=== PATIENT | female | born 1985 | race Caucasian/White ===

== ENCOUNTER 2017-08-20 11:38 | Emergency (ER) | payer SELFPAY ==
[2017-08-20 11:53] VITALS: BP 126/74; PULSE 88; RESP 13; TEMP 36.1; O2SAT 100
[2017-08-20 12:07] VITALS: BP 126/74; PULSE 88; RESP 13; TEMP 36.1; O2SAT 100
--- NOTE | 2017-08-20 12:36 | ED.BACK ---
HPI - Back Pain/Injury <URI Sears - Last Filed: 08/20/17 20:13> General Chief Complaint: Back Pain/Injury Stated Complaint: LOWER BACK PAIN Time Seen by Provider: 08/20/17 12:36 Source: patient Mode of arrival: ambulatory Limitations: no limitations History of Present Illness HPI Narrative: Patient presents after back pain on Saturday. She was bending over while camping to pick something up and had sudden onset of back pain. She denies any numbness, tingling, incontinence or saddle anesthesia. She denies any weakness. She does not complain any radiation of the pain states it is mostly isolated to her lower back on both sides. She denies any dysuria, urgency, frequency. She has taken ibuprofen and Tylenol for the pain. She has been on muscle relaxers performed states they are helpful. Related Data Previous Rx's Medication Instructions Recorded nicotine [Nicoderm CQ] 14 mg TD QDAY #30 patch 01/17/16 sumatriptan succinate [Imitrex] 100 mg PO PRN PRN #9 tab 07/15/16 triamcinolone acetonide 1 chan TOPICAL BID #60 gm 08/17/16 naproxen 500 mg PO TIDCC #30 tab 11/01/16 citalopram [Celexa] 20 mg PO QDAY #30 tab 11/05/16 hydroxyzine pamoate 25 mg PO Q6HP PRN #20 cap 11/08/16 hydrocodone-acetaminophen 1 - 2 tab PO Q4HP PRN #30 tab 11/12/16 sulfamethoxazole-trimethoprim 20 ml PO BID #400 ml 11/12/16 [Sulfatrim] oxycodone-acetaminophen [Percocet] 1 tab PO Q6HP PRN #40 tab 11/16/16 tramadol 50 - 100 mg PO TID #45 tab 05/02/17 oseltamivir 75 mg PO QDAY #10 cap 05/13/17 omeprazole 20 mg PO BID #60 cap 06/26/17 cyclobenzaprine 5 mg PO TID PRN #14 tab NS 08/20/17 Allergies Allergy/AdvReac Type Severity Reaction Status Date / Time No Known Drug Allergies Allergy Verified 08/20/17 12:06 Review of Systems <URI Sears - Last Filed: 08/20/17 20:13> Review of Systems GENERAL: Denies chills, fatigue, malaise, fever, sweats. HEENT: Denies sinus pain, ear pain, sore throat, difficulty swallowing, dizziness. RESPIRATORY: Denies dyspnea, cough, wheezing, hemoptysis, sputum. CARDIOVASCULAR: Denies chest pain, palpitations, orthopnea, edema, GASTROINTESTINAL: Denies nausea, vomiting, abdominal pain, diarrhea, constipation, melena. : See HPI MUSCULOSKELETAL: See HPI SKIN: Denies rash, skin lesions, or other NEUROLOGIC: Denies weakness, headache, numbness, change in speech, confusion, seizures, incoordination. PSYCHIATRIC: No concerning psychosocial issues. 12 point review of systems is negative except for those stated above Exam <Celinamarkel Ordoñezmer, SHIP FASTENER-BC - Last Filed: 08/20/17 20:13> Narrative Exam Narrative: GENERAL: This is a well-nourished, well-developed patient, in no distress lying in position. HEAD: Atraumatic. Normocephalic. No temporal or scalp tenderness. EYES: Pupils equal round and reactive. Extraocular motions intact. No scleral icterus. No injection or drainage. ENT: Nose without bleeding, purulent drainage or septal hematoma. Throat without erythema, tonsillar hypertrophy or exudate. Uvula midline. Airway patent. NECK: Trachea midline. No JVD or lymphadenopathy. Supple, nontender, no meningeal signs. CARDIOVASCULAR: Regular rate and rhythm without murmurs, gallops, or rubs. RESPIRATORY: Clear to auscultation. Breath sounds equal bilaterally. No wheezes, rales, or rhonchi. GASTROINTESTINAL: Abdomen soft, non-tender, nondistended. No hepato-splenomegaly, or palpable masses. No guarding. EXTREMITIES: No clubbing, cyanosis, or edema. No joint tenderness, effusion, or edema noted. BACK: No C-spine or T-spine pain to palpation. Pain across L-spine including bilateral paraspinal muscles. No palpable step-offs or deformities. NEURO: AOx3. Strength equal upper and lower extremities bilaterally. Radial head and patellar reflexes are intact. SKIN: No rash or erythema. No erythema or ecchymosis noted over lower back. No rashes. Initial Vital Signs Initial Vital Signs: Vital Signs Temperature 97 F L 08/20/17 11:53 Pulse Rate 88 08/20/17 11:53 Respiratory Rate 13 08/20/17 11:53 Blood Pressure 126/74 H 08/20/17 11:53 Pulse Oximetry 100 08/20/17 11:53 <Tamela Tucker DO - Last Filed: 08/21/17 07:26> Initial Vital Signs Initial Vital Signs: Vital Signs Temperature 97 F L 08/20/17 11:53 Pulse Rate 88 08/20/17 11:53 Respiratory Rate 13 08/20/17 11:53 Blood Pressure 126/74 H 08/20/17 11:53 Pulse Oximetry 100 08/20/17 11:53 Course <URI Seras - Last Filed: 08/20/17 20:13> Orders Ordered: Discontinued Medications Ketorolac Tromethamine (Toradol) 60 mg IM NOW ONE Stop: 08/20/17 12:45 Last Admin: 08/20/17 13:02 Dose: 60 mg Reevaluation(s) Reevaluation #1: Patient has received a Toradol injection. Discussed waiting for x-ray results. Time: 12:55 Reevaluation #2: Discussed no acute findings on x-ray. Offered Flexeril in emergency department, but patient stated she had to drive home and was unable to find a ride. Time: 13:30 Reevaluation #3: Patient states she feels as though she is ready to go home. Discussed return precautions of numbness, tingling, saddle anesthesia, incontinence. Time: 14:00 Vital Signs - 8 hr 08/20/17 14:17 Pulse Rate 82 Respiratory Rate 16 Blood Pressure [Right Arm] 145/77 H Pulse Oximetry 99 <Tamela Tucker DO - Last Filed: 08/21/17 07:26> Orders Ordered: Discontinued Medications Ketorolac Tromethamine (Toradol) 60 mg IM NOW ONE Stop: 08/20/17 12:45 Last Admin: 08/20/17 13:02 Dose: 60 mg Vital Signs - 8 hr 08/20/17 14:17 Pulse Rate 82 Respiratory Rate 16 Blood Pressure [Right Arm] 145/77 H Pulse Oximetry 99 MDM - Back Pain/Injury <URI Sears - Last Filed: 08/20/17 20:13> Imaging Data lumbar xray: Radiologist's impression: [address] [address] XRay Report Signed Patient: Kitty Noguera MR#: [id number] : 1985 Acct:[id number] Age/Sex: 32 / F Date of Service: 08/20/17 Loc: ED Accession Number: [id number] Procedure: XR lumbar spine 2-3V Ordering Provider: Celina Salcido-NELLY PROCEDURE: XR LUMBAR SPINE 2-3V INDICATIONS: 32 year-old female with low back pain on palpation. TECHNIQUE: 3 views of the lumbar spine were acquired. COMPARISON: [facility], , L-SPINE 2-3 VIEWS, 10/18/2011, 12:47. FINDINGS: Bones: 5 [id number] vertebrae are present. There is normal bony alignment. No vertebral body compression fractures. Nonacute nonunited fracture of the left L3 transverse process is again noted. No suspicious bony lesions. Soft tissues: Overlying bowel gas pattern is normal. No suspicious soft tissue calcifications. IMPRESSION: No acute bony injuries of the lumbar spine. Nonacute left L3 transverse body fracture is unchanged since 2011. Dictated by: Sina Mccann M.D. on 08/20/2017 at 13:13 Approved by: Sina Mccann M.D. on 08/20/2017 at 13:14 [facility] Narrative Medical decision making narrative: Patient presented to emergency department with back pain after bending over while camping. She did not have any red flags on exam. She denied numbness, tingling, incontinence, saddle anesthesia. She had a normal neurological exam. X-rays were taken and showed no acute bony injuries of the lumbar spine. She was treated with Toradol in the emergency department. I gave her prescription for Flexeril as this has worked for the past. Discussed follow-up primary care as well as returning to the emergency department if she experienced any red flags including numbness, tingling, incontinence or saddle anesthesia. Discharge Plan Departure Patient Disposition: Home, Self-Care Clinical Impression: Low back pain Discharge Date/Time: 08/20/17 14:18 Interventions: ED Discharge Assessment Last Done: 08/20/17 14:17 Instructions: DI for Low Back Pain, Activity May Be Better then Rest for Low Back Pain Recovery Activity Restrictions/Additional Instructions: Today we took x-rays for your back pain in the showed no acute etiology. You were treated with 60 mg Toradol. Please do not take ibuprofen for 6-8 hours after this injection. I am giving a prescription for Flexeril. Take this up to 3 times a day as needed for muscle spasms. Please be careful combining this with your other medications and evaluate how you react to it. It can make you tired, especially with some of the pain medications that you have as needed. Come back to the emergency department for any numbness, tingling, saddle anesthesia or incontinence. Please feel free to follow up with your primary care provider as needed as you may benefit from other care including physical therapy. In the meantime please use the muscle relaxer, [id number] pain medications as needed. Use ice for the 1st 72 hr and then transition heat. Prescriptions: New cyclobenzaprine 5 mg tablet 5 mg PO TID PRN (Reason: muscle spasm) Qty: 14 RF: 0 No Action nicotine [Nicoderm CQ] 14 MG patch 24 hour 14 mg TD QDAY Qty: 30 RF: 0 sumatriptan succinate [Imitrex] 100 MG tablet 100 mg PO PRN PRNQty: 9 RF: 1 triamcinolone acetonide 0.1 % cream 1 chan Topical BID Qty: 60 RF: 0 naproxen 500 MG tablet 500 mg PO TIDCC Qty: 30 RF: 0 citalopram [Celexa] 20 MG tablet 20 mg PO QDAY Qty: 30 RF: 3 hydroxyzine pamoate 25 MG capsule 25 mg PO Q6HP PRNQty: 20 RF: 1 hydrocodone-acetaminophen 5 MG/325 MG tablet 1 - 2 tab PO Q4HP PRNQty: 30 RF: 0 sulfamethoxazole-trimethoprim [Sulfatrim] 20 ML suspension 20 ml PO BID Qty: 400 RF: 0 oxycodone-acetaminophen [Percocet] 5 MG/325 MG tablet 1 tab PO Q6HP PRNQty: 40 RF: 0 tramadol 50 MG tablet 50 - 100 mg PO TID Qty: 45 RF: 0 oseltamivir 75 MG capsule 75 mg PO QDAY Qty: 10 RF: 0 omeprazole 20 MG capsule,delayed release(DR/EC) 20 mg PO BID Qty: 60 RF: 2 Referrals: Kaylen Marley PA-C [Primary Care Provider] - <Tamela Tucker DO - Last Filed: 08/21/17 07:26> Cosign ED Attending Cosignature Attestation: I was immediately available in the department for consultation. Documentation has been reviewed. I agree with assessment and plan.
--- NOTE | 2017-08-20 12:44 | DI.RAD.S_ITS ---
PROCEDURE: XR LUMBAR SPINE 2-3V INDICATIONS: 32 year-old female with low back pain on palpation. TECHNIQUE: 3 views of the lumbar spine were acquired. COMPARISON: [facility], , L-SPINE 2-3 VIEWS, 10/18/2011, 12:47. FINDINGS: Bones: 5 [id number] vertebrae are present. There is normal bony alignment. No vertebral body compression fractures. Nonacute nonunited fracture of the left L3 transverse process is again noted. No suspicious bony lesions. Soft tissues: Overlying bowel gas pattern is normal. No suspicious soft tissue calcifications. IMPRESSION: No acute bony injuries of the lumbar spine. Nonacute left L3 transverse body fracture is unchanged since 2011. Dictated by: Sina Mccann M.D. on 08/20/2017 at 13:13 Approved by: Sina Mccann M.D. on 08/20/2017 at 13:14
[2017-08-20] MEDS: KETOROLAC 60 MG/2 ML VIAL IM (13:02)
--- NOTE | 2017-08-20 13:59 | ED_ITS ---
HPI - Back Pain/Injury <URI Sears - Last Filed: 08/20/17 20:13> General Chief Complaint: Back Pain/Injury Stated Complaint: LOWER BACK PAIN Time Seen by Provider: 08/20/17 12:36 Source: patient Mode of arrival: ambulatory Limitations: no limitations History of Present Illness HPI Narrative: Patient presents after back pain on Saturday. She was bending over while camping to pick something up and had sudden onset of back pain. She denies any numbness, tingling, incontinence or saddle anesthesia. She denies any weakness. She does not complain any radiation of the pain states it is mostly isolated to her lower back on both sides. She denies any dysuria, urgency, frequency. She has taken ibuprofen and Tylenol for the pain. She has been on muscle relaxers performed states they are helpful. Related Data Previous Rx's Medication Instructions Recorded nicotine [Nicoderm CQ] 14 mg TD QDAY #30 patch 01/17/16 sumatriptan succinate [Imitrex] 100 mg PO PRN PRN #9 tab 07/15/16 triamcinolone acetonide 1 chan TOPICAL BID #60 gm 08/17/16 naproxen 500 mg PO TIDCC #30 tab 11/01/16 citalopram [Celexa] 20 mg PO QDAY #30 tab 11/05/16 hydroxyzine pamoate 25 mg PO Q6HP PRN #20 cap 11/08/16 hydrocodone-acetaminophen 1 - 2 tab PO Q4HP PRN #30 tab 11/12/16 sulfamethoxazole-trimethoprim 20 ml PO BID #400 ml 11/12/16 [Sulfatrim] oxycodone-acetaminophen [Percocet] 1 tab PO Q6HP PRN #40 tab 11/16/16 tramadol 50 - 100 mg PO TID #45 tab 05/02/17 oseltamivir 75 mg PO QDAY #10 cap 05/13/17 omeprazole 20 mg PO BID #60 cap 06/26/17 cyclobenzaprine 5 mg PO TID PRN #14 tab NS 08/20/17 Allergies Allergy/AdvReac Type Severity Reaction Status Date / Time No Known Drug Allergies Allergy Verified 08/20/17 12:06 Review of Systems <URI Sears - Last Filed: 08/20/17 20:13> Review of Systems GENERAL: Denies chills, fatigue, malaise, fever, sweats. HEENT: Denies sinus pain, ear pain, sore throat, difficulty swallowing, dizziness. RESPIRATORY: Denies dyspnea, cough, wheezing, hemoptysis, sputum. CARDIOVASCULAR: Denies chest pain, palpitations, orthopnea, edema, GASTROINTESTINAL: Denies nausea, vomiting, abdominal pain, diarrhea, constipation, melena. : See HPI MUSCULOSKELETAL: See HPI SKIN: Denies rash, skin lesions, or other NEUROLOGIC: Denies weakness, headache, numbness, change in speech, confusion, seizures, incoordination. PSYCHIATRIC: No concerning psychosocial issues. 12 point review of systems is negative except for those stated above Exam <Celinamarkel Ordoñezmer, GROUND PRODUCTS DIRECTOR-BC - Last Filed: 08/20/17 20:13> Narrative Exam Narrative: GENERAL: This is a well-nourished, well-developed patient, in no distress lying in position. HEAD: Atraumatic. Normocephalic. No temporal or scalp tenderness. EYES: Pupils equal round and reactive. Extraocular motions intact. No scleral icterus. No injection or drainage. ENT: Nose without bleeding, purulent drainage or septal hematoma. Throat without erythema, tonsillar hypertrophy or exudate. Uvula midline. Airway patent. NECK: Trachea midline. No JVD or lymphadenopathy. Supple, nontender, no meningeal signs. CARDIOVASCULAR: Regular rate and rhythm without murmurs, gallops, or rubs. RESPIRATORY: Clear to auscultation. Breath sounds equal bilaterally. No wheezes , rales, or rhonchi. GASTROINTESTINAL: Abdomen soft, non-tender, nondistended. No hepato-splenomegaly , or palpable masses. No guarding. EXTREMITIES: No clubbing, cyanosis, or edema. No joint tenderness, effusion, or edema noted. BACK: No C-spine or T-spine pain to palpation. Pain across L-spine including bilateral paraspinal muscles. No palpable step-offs or deformities. NEURO: AOx3. Strength equal upper and lower extremities bilaterally. Radial head and patellar reflexes are intact. SKIN: No rash or erythema. No erythema or ecchymosis noted over lower back. No rashes. Initial Vital Signs Initial Vital Signs: Vital Signs Temperature 97 F L 08/20/17 11:53 Pulse Rate 88 08/20/17 11:53 Respiratory Rate 13 08/20/17 11:53 Blood Pressure 126/74 H 08/20/17 11:53 Pulse Oximetry 100 08/20/17 11:53 <Tamela Tucker DO - Last Filed: 08/21/17 07:26> Initial Vital Signs Initial Vital Signs: Vital Signs Temperature 97 F L 08/20/17 11:53 Pulse Rate 88 08/20/17 11:53 Respiratory Rate 13 08/20/17 11:53 Blood Pressure 126/74 H 08/20/17 11:53 Pulse Oximetry 100 08/20/17 11:53 Course <URI Sears - Last Filed: 08/20/17 20:13> Orders Ordered: Discontinued Medications Ketorolac Tromethamine (Toradol) 60 mg IM NOW ONE Stop: 08/20/17 12:45 Last Admin: 08/20/17 13:02 Dose: 60 mg Reevaluation(s) Reevaluation #1: Patient has received a Toradol injection. Discussed waiting for x-ray results. Time: 12:55 Reevaluation #2: Discussed no acute findings on x-ray. Offered Flexeril in emergency department, but patient stated she had to drive home and was unable to find a ride. Time: 13:30 Reevaluation #3: Patient states she feels as though she is ready to go home. Discussed return precautions of numbness, tingling, saddle anesthesia, incontinence. Time: 14:00 Vital Signs - 8 hr 08/20/17 14:17 Pulse Rate 82 Respiratory Rate 16 Blood Pressure [Right Arm] 145/77 H Pulse Oximetry 99 <Tamela Tucker DO - Last Filed: 08/21/17 07:26> Orders Ordered: Discontinued Medications Ketorolac Tromethamine (Toradol) 60 mg IM NOW ONE Stop: 08/20/17 12:45 Last Admin: 08/20/17 13:02 Dose: 60 mg Vital Signs - 8 hr 08/20/17 14:17 Pulse Rate 82 Respiratory Rate 16 Blood Pressure [Right Arm] 145/77 H Pulse Oximetry 99 MDM - Back Pain/Injury <URI Sears - Last Filed: 08/20/17 20:13> Imaging Data lumbar xray: Radiologist's impression: [address] [address] XRay Report Signed Patient: Kitty Noguera MR#: [id number] : 1985 Acct:[id number] Age/Sex: 32 / F Date of Service: 08/20/17 Loc: ED Accession Number: [id number] Procedure: XR lumbar spine 2-3V Ordering Provider: Celina Salcido-NELLY PROCEDURE: XR LUMBAR SPINE 2-3V INDICATIONS: 32 year-old female with low back pain on palpation. TECHNIQUE: 3 views of the lumbar spine were acquired. COMPARISON: [facility], , L-SPINE 2-3 VIEWS, 10/18/2011, 12:47. FINDINGS: Bones: 5 [id number] vertebrae are present. There is normal bony alignment. No vertebral body compression fractures. Nonacute nonunited fracture of the left L3 transverse process is again noted. No suspicious bony lesions. Soft tissues: Overlying bowel gas pattern is normal. No suspicious soft tissue calcifications. IMPRESSION: No acute bony injuries of the lumbar spine. Nonacute left L3 transverse body fracture is unchanged since 2011. Dictated by: Sina Mccann M.D. on 08/20/2017 at 13:13 Approved by: Sina Mccann M.D. on 08/20/2017 at 13:14 [facility] Narrative Medical decision making narrative: Patient presented to emergency department with back pain after bending over while camping. She did not have any red flags on exam. She denied numbness, tingling, incontinence, saddle anesthesia. She had a normal neurological exam. X-rays were taken and showed no acute bony injuries of the lumbar spine. She was treated with Toradol in the emergency department. I gave her prescription for Flexeril as this has worked for the past. Discussed follow-up primary care as well as returning to the emergency department if she experienced any red flags including numbness, tingling, incontinence or saddle anesthesia. Discharge Plan Departure Patient Disposition: Home, Self-Care Clinical Impression: Low back pain Discharge Date/Time: 08/20/17 14:18 Interventions: ED Discharge Assessment Last Done: 08/20/17 14:17 Instructions: DI for Low Back Pain, Activity May Be Better then Rest for Low Back Pain Recovery Activity Restrictions/Additional Instructions: Today we took x-rays for your back pain in the showed no acute etiology. You were treated with 60 mg Toradol. Please do not take ibuprofen for 6-8 hours after this injection. I am giving a prescription for Flexeril. Take this up to 3 times a day as needed for muscle spasms. Please be careful combining this with your other medications and evaluate how you react to it. It can make you tired, especially with some of the pain medications that you have as needed. Come back to the emergency department for any numbness, tingling, saddle anesthesia or incontinence. Please feel free to follow up with your primary care provider as needed as you may benefit from other care including physical therapy. In the meantime please use the muscle relaxer, [id number] pain medications as needed. Use ice for the 1st 72 hr and then transition heat. Prescriptions: New cyclobenzaprine 5 mg tablet 5 mg PO TID PRN (Reason: muscle spasm) Qty: 14 RF: 0 No Action nicotine [Nicoderm CQ] 14 MG patch 24 hour 14 mg TD QDAY Qty: 30 RF: 0 sumatriptan succinate [Imitrex] 100 MG tablet 100 mg PO PRN PRNQty: 9 RF: 1 triamcinolone acetonide 0.1 % cream 1 chan Topical BID Qty: 60 RF: 0 naproxen 500 MG tablet 500 mg PO TIDCC Qty: 30 RF: 0 citalopram [Celexa] 20 MG tablet 20 mg PO QDAY Qty: 30 RF: 3 hydroxyzine pamoate 25 MG capsule 25 mg PO Q6HP PRNQty: 20 RF: 1 hydrocodone-acetaminophen 5 MG/325 MG tablet 1 - 2 tab PO Q4HP PRNQty: 30 RF: 0 sulfamethoxazole-trimethoprim [Sulfatrim] 20 ML suspension 20 ml PO BID Qty: 400 RF: 0 oxycodone-acetaminophen [Percocet] 5 MG/325 MG tablet 1 tab PO Q6HP PRNQty: 40 RF: 0 tramadol 50 MG tablet 50 - 100 mg PO TID Qty: 45 RF: 0 oseltamivir 75 MG capsule 75 mg PO QDAY Qty: 10 RF: 0 omeprazole 20 MG capsule,delayed release(DR/EC) 20 mg PO BID Qty: 60 RF: 2 Referrals: Kaylen Marley PA-C [Primary Care Provider] - <Tamela Tucker DO - Last Filed: 08/21/17 07:26> Cosign ED Attending Cosignature Attestation: I was immediately available in the department for consultation. Documentation has been reviewed. I agree with assessment and plan.
[2017-08-20 14:17] VITALS: BP 145/77; PULSE 82; RESP 16; O2SAT 99
== END 2017-08-20 14:18 | disposition home or self-care (01) ==
PROVIDERS: Emergency Provider Nurse Practitioner Family; PCP Physician Assistant
DX: M54.5 Low back pain (principal)
CPT/HCPCS: 72100; 96372; 99282; 99283; J1885

== ENCOUNTER 2018-02-07 08:19 | Emergency (ER) | payer SELFPAY ==
[2018-02-07 08:52] VITALS: BP 118/72; PULSE 89; RESP 16; TEMP 36.7; O2SAT 98
[2018-02-07 08:58] VITALS: BP 118/72; PULSE 89; RESP 16; TEMP 36.7; O2SAT 98; BMI 33.3
--- NOTE | 2018-02-07 09:35 | DI.RAD.S_ITS ---
PROCEDURE: XR KNEE LT 3V INDICATIONS: pain no injury TECHNIQUE: 3 views of the knee were acquired. COMPARISON: [facility], , KNEE 3V RIGHT, 10/07/2016, 15:18. FINDINGS: Bones: No fractures or dislocations. No suspicious bony lesions. There may be mild medial joint space narrowing. Soft tissues: No joint effusion. No suspicious soft tissue calcifications. IMPRESSION: No acute osseous abnormality of the left knee. Dictated by: Adam Rosa M.D. on 02/07/2018 at 9:20 Approved by: Adam Rosa M.D. on 02/07/2018 at 9:22
[2018-02-07 10:01] VITALS: BP 117/80; PULSE 86; RESP 16; O2SAT 97
--- NOTE | 2018-02-07 10:30 | ED.EXTPRO ---
HPI - Extremity Problem General Chief complaint: Extremity Problem,Nontraumatic Stated complaint: LEFT KNEE LOCKING Time Seen by Provider: 02/07/18 09:34 Source: patient Mode of arrival: ambulatory Limitations: no limitations History of Present Illness HPI Narrative: Patient is a 32-year-old female who presents left knee pain. 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 She feels like it might give out on her but it has not given out. She denies fever or chills. No numbness or tingling. MD Complaint: extremity pain Related Data Previous Rx's Medication Instructions Recorded sumatriptan succinate [Imitrex] 100 mg PO PRN PRN #9 tab 07/15/16 citalopram [Celexa] 20 mg PO QDAY #30 tab 11/05/16 tramadol 50 - 100 mg PO TID #45 tab 05/02/17 omeprazole 20 mg capsule,delayed 20 mg PO BID #60 cap 09/23/17 release Allergies Allergy/AdvReac Type Severity Reaction Status Date / Time No Known Drug Allergies Allergy Verified 08/20/17 12:06 Review of Systems Review of Systems GENERAL: Denies chills,fever HEENT: Denies throat pain RESPIRATORY: Denies dyspnea, cough, wheezing CARDIOVASCULAR: Denies chest pain, palpitations GASTROINTESTINAL: Denies nausea, vomiting MUSCULOSKELETAL: See HPI SKIN: No rash, no laceration, no pruritus NEUROLOGIC: Denies weakness, dizziness, headache, numbness 8 point review of systems is negative except for those stated above and HPI PFSH Family History Mother Age: 63 Hypertension Social History Smoking Status: Current every day smoker Exam Initial Vital Signs Initial Vital Signs: Vital Signs Temperature 98.1 F 02/07/18 08:52 Pulse Rate 89 02/07/18 08:52 Respiratory Rate 16 02/07/18 08:52 Blood Pressure 118/72 02/07/18 08:52 Pulse Oximetry 98 02/07/18 08:52 GENERAL: Well-appearing, well-nourished and in no acute distress. CARDIOVASCULAR: peripheral pulses in tact, cap refill <2 sec RESPIRATORY: No respiratory distress, speaks in full sentences without difficulty EXTREMITIES: Normal range of motion, no clubbing or edema. Neurovascularly intact Left knee is stable no swelling versus posteriorly. Negative anterior-posterior drawer. Neurovascularly intact distally. NEUROLOGICAL: Cranial nerves II through XII grossly intact. Normal gait and speech. SKIN: Warm, dry, no petechiae, no rashes or lesions. Course Orders Ordered: ED Orders 02/07/18 09:35 XR knee LT 3V Stat Vital Signs - 8 hr 02/07/18 08:52 02/07/18 08:58 02/07/18 10:01 Temperature 98.1 F 98.1 F Pulse Rate 89 89 86 Respiratory Rate Blood Pressure 118/72 Blood Pressure [Left Arm] 118/72 117/80 Pulse Oximetry 98 98 97 MDM - Extremity (Nontraumatic) Imaging Data knee x ray: Radiologist's impression: [address] [address] XRay Report Signed Patient: Kitty Noguera [facility]#: [id number] : 1985Acct:[id number] Age/Sex: 32 / FDate of Service: 02/07/18 Loc: ED Accession Number: [id number] Procedure: XR knee LT 3V Ordering Provider: Tamela Tucker D.O. PROCEDURE: XR KNEE LT 3V INDICATIONS: pain no injury TECHNIQUE: 3 views of the knee were acquired. COMPARISON: [facility], , KNEE 3V RIGHT, 10/07/2016, 15:18. FINDINGS: Bones: No fractures or dislocations. No suspicious bony lesions. There may be mild medial joint space narrowing. Soft tissues: No joint effusion. No suspicious soft tissue calcifications. IMPRESSION: No acute osseous abnormality of the left knee. Dictated by: Adam Rosa M.D. on 02/07/2018 at 9:20 Discharge Plan Departure Patient Disposition: Home Clinical Impression: Strain of left knee Discharge Date/Time: 02/07/18 10:59 Interventions: ED Discharge Assessment Last Done: 02/07/18 11:00 Instructions: DI for Knee Sprain Activity Restrictions/Additional Instructions: *You have been diagnosed with left knee strain *What to do: Recommend buying a knee brace and wearing well active, if still having pain and discomfort may require MRI as outpatient in a few weeks with your primary *Continue to take medications as directed Naproxen 500 mg twice a day if needed for pain *Follow up with your primary care provider in 2-3 days *Return to ER if you should have numbness tingling worsening pain or any new, worsening or concerning symptoms Prescriptions: No Action sumatriptan succinate [Imitrex] 100 MG tablet 100 mg PO PRN PRNQty: 9 RF: 1 citalopram [Celexa] 20 MG tablet 20 mg PO QDAY Qty: 30 RF: 3 tramadol 50 MG tablet 50 - 100 mg PO TID Qty: 45 RF: 0 omeprazole 20 mg capsule,delayed release(DR/EC) 20 mg PO BID Qty: 60 RF: 0 Referrals: Kaylen Marley PA-C [Primary Care Provider] -
--- NOTE | 2018-02-07 10:36 | ED_ITS ---
HPI - Extremity Problem General Chief complaint: Extremity Problem,Nontraumatic Stated complaint: LEFT KNEE LOCKING Time Seen by Provider: 02/07/18 09:34 Source: patient Mode of arrival: ambulatory Limitations: no limitations History of Present Illness HPI Narrative: Patient is a 32-year-old female who presents left knee pain. 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 She feels like it might give out on her but it has not given out. She denies fever or chills. No numbness or tingling. MD Complaint: extremity pain Related Data Previous Rx's Medication Instructions Recorded sumatriptan succinate [Imitrex] 100 mg PO PRN PRN #9 tab 07/15/16 citalopram [Celexa] 20 mg PO QDAY #30 tab 11/05/16 tramadol 50 - 100 mg PO TID #45 tab 05/02/17 omeprazole 20 mg capsule,delayed 20 mg PO BID #60 cap 09/23/17 release Allergies Allergy/AdvReac Type Severity Reaction Status Date / Time No Known Drug Allergies Allergy Verified 08/20/17 12:06 Review of Systems Review of Systems GENERAL: Denies chills,fever HEENT: Denies throat pain RESPIRATORY: Denies dyspnea, cough, wheezing CARDIOVASCULAR: Denies chest pain, palpitations GASTROINTESTINAL: Denies nausea, vomiting MUSCULOSKELETAL: See HPI SKIN: No rash, no laceration, no pruritus NEUROLOGIC: Denies weakness, dizziness, headache, numbness 8 point review of systems is negative except for those stated above and HPI PFSH Family History Mother Age: 63 Hypertension Social History Smoking Status: Current every day smoker Exam Initial Vital Signs Initial Vital Signs: Vital Signs Temperature 98.1 F 02/07/18 08:52 Pulse Rate 89 02/07/18 08:52 Respiratory Rate 16 02/07/18 08:52 Blood Pressure 118/72 02/07/18 08:52 Pulse Oximetry 98 02/07/18 08:52 GENERAL: Well-appearing, well-nourished and in no acute distress. CARDIOVASCULAR: peripheral pulses in tact, cap refill <2 sec RESPIRATORY: No respiratory distress, speaks in full sentences without difficulty EXTREMITIES: Normal range of motion, no clubbing or edema. Neurovascularly intact Left knee is stable no swelling versus posteriorly. Negative anterior- posterior drawer. Neurovascularly intact distally. NEUROLOGICAL: Cranial nerves II through XII grossly intact. Normal gait and speech. SKIN: Warm, dry, no petechiae, no rashes or lesions. Course Orders Ordered: ED Orders 02/07/18 09:35 XR knee LT 3V Stat Vital Signs - 8 hr 02/07/18 08:52 02/07/18 08:58 02/07/18 10:01 Temperature 98.1 F 98.1 F Pulse Rate 89 89 86 Respiratory Rate Blood Pressure 118/72 Blood Pressure [Left Arm] 118/72 117/80 Pulse Oximetry 98 98 97 MDM - Extremity (Nontraumatic) Imaging Data knee x ray: Radiologist's impression: [address] [address] XRay Report Signed Patient: Kitty Noguera AMR#: [id number] : 1985Acct:[id number] Age/Sex: 32 / FDate of Service: 02/07/18 Loc: ED Accession Number: [id number] Procedure: XR knee LT 3V Ordering Provider: Tamela Tucker D.O. PROCEDURE: XR KNEE LT 3V INDICATIONS: pain no injury TECHNIQUE: 3 views of the knee were acquired. COMPARISON: [facility], , KNEE 3V RIGHT, 10/07/2016, 15:18. FINDINGS: Bones: No fractures or dislocations. No suspicious bony lesions. There may be mild medial joint space narrowing. Soft tissues: No joint effusion. No suspicious soft tissue calcifications. IMPRESSION: No acute osseous abnormality of the left knee. Dictated by: Adam Rosa M.D. on 02/07/2018 at 9:20 Discharge Plan Departure Patient Disposition: Home Clinical Impression: Strain of left knee Discharge Date/Time: 02/07/18 10:59 Interventions: ED Discharge Assessment Last Done: 02/07/18 11:00 Instructions: DI for Knee Sprain Activity Restrictions/Additional Instructions: *You have been diagnosed with left knee strain *What to do: Recommend buying a knee brace and wearing well active, if still having pain and discomfort may require MRI as outpatient in a few weeks with your primary *Continue to take medications as directed Naproxen 500 mg twice a day if needed for pain *Follow up with your primary care provider in 2-3 days *Return to ER if you should have numbness tingling worsening pain or any new, worsening or concerning symptoms Prescriptions: No Action sumatriptan succinate [Imitrex] 100 MG tablet 100 mg PO PRN PRNQty: 9 RF: 1 citalopram [Celexa] 20 MG tablet 20 mg PO QDAY Qty: 30 RF: 3 tramadol 50 MG tablet 50 - 100 mg PO TID Qty: 45 RF: 0 omeprazole 20 mg capsule,delayed release(DR/EC) 20 mg PO BID Qty: 60 RF: 0 Referrals: Kaylen Marley PA-C [Primary Care Provider] -
--- NOTE | 2018-02-08 15:35 | PC.NURSE ---
call swapna, with satisfied visits, no question, pt feeling better with napregan
== END 2018-02-07 10:59 | disposition home or self-care (01) ==
PROVIDERS: Emergency Provider Emergency Medicine; PCP Physician Assistant
DX: S86.912A Strain of unspecified muscle(s) and tendon(s) at lower leg level, left leg, initial encounter (principal)
CPT/HCPCS: 73562; 99282; 99283

== ENCOUNTER 2018-05-02 08:43 | Emergency (ER) | payer SELFPAY ==
--- NOTE | 2018-05-02 08:54 | DI.RAD.S_ITS ---
PROCEDURE: XR CHEST 1V INDICATIONS: chest pain TECHNIQUE: One view of the chest was acquired. COMPARISON: [facility], CR, SHOULDER MINIMUM 2VIEW RIGHT, 10/18/2011, 12:47. [facility], RG, XR CXR 2 VIEW, 02/19/2005, 9:37. FINDINGS: Surgical changes and devices: None. Lungs and pleura: No consolidations. Questionable trace costophrenic angle blunting bilaterally. Mediastinum: Mediastinal contours appear normal. Heart size is normal. Bones and chest wall: Questionable appearance of sclerosis overlying the right humeral head. Overlying soft tissues appear unremarkable. IMPRESSION: 1. Questionable minimal bilateral effusions. 2. Appearance of sclerosis overlying the right humeral head, new since 2011. Recommend correlation to overlying structure. Otherwise, sclerotic lesion cannot be excluded shoulder series is recommended for further evaluation. Dictated by: Carmenza Bedolla M.D. on 05/02/2018 at 9:14 Approved by: Carmenza Bedolla M.D. on 05/02/2018 at 9:16
[2018-05-02 09:00] VITALS: BP 120/68; PULSE 64; RESP 16; TEMP 36.7; O2SAT 99
[2018-05-02 09:01] VITALS: BP 120/68; PULSE 64; RESP 16; TEMP 36.7; O2SAT 99
[2018-05-02 09:29] LABS: Add Manual Diff / Slide Review NO; Basophils Absolute Auto 100 /uL (0-100); Basophils Percent Auto 1.1 % (0-2); Eosinophils Absolute Auto 200 /uL (0-450); Eosinophils Percent Auto 2.7 % (2-4); Hematocrit 41.7 % (36-46); Hemoglobin 14.1 g/dL (12.0-16.0); Lymphocytes Absolute Auto 1500 /uL (1100-4500); Lymphocytes Percent Auto 22.8 % (25-40); Mean Corpuscular HGB Conc 33.7 % (30-36); Mean Corpuscular Hemoglobin 30.2 PG (26-34); Mean Corpuscular Volume 89.4 fL (80-100); Monocytes Absolute Auto 500 /uL (0-900); Monocytes Percent Auto 7.6 % (3-14); Neutrophils Absolute Auto 4300 /uL (1500-7000); Neutrophils Percent Auto 65.8 % (50-75); Platelet Count 244 X10^3/uL (150-400); Red Blood Cell Count 4.66 X10^6/uL (4.0-5.2); Red Cell Distribution Width 13.1 % (11.6-14.8); White Blood Cell Count 6.5 X10^3/uL (4.5-11.0)
[2018-05-02] MEDS: ASPIRIN 81 MG TAB 324 MG PO (09:30)
[2018-05-02 09:37] LABS: Prothrombin Time 10.9 SECONDS (10.1-12.7)
[2018-05-02 09:39] LABS: PTT Partial Thromboplastin Tim 30 SECONDS (26.4-36.2)
[2018-05-02 09:40] LABS: Alanine Aminotransferase 22 IU/L (9-52); Albumin Globulin Ratio 1.4 (1.0-2.8); Alkaline Phosphatase 59 U/L (38-126); Aspartate Aminotransferase 12 IU/L (14-36); BUN Creatinine Ratio 18.3 (6-22); Bilirubin Total 0.4 mg/dL (0.2-1.3); Blood Urea Nitrogen 11 mg/dL (7-17); Calcium 8.6 mg/dL (8.4-10.2); Carbon Dioxide 24 mmol/L (22-32); Chloride 104 mmol/L (98-107); Creatine Kinase 57 U/L (30-135); Estimated Glomerular Filt Rate > 60.0 mL/min (>60); Globulin 2.9 g/dL (1.7-4.1); Glucose 97 mg/dL (70-100); HEMOLYSIS < 15 (0-50); Lipase 48 U/L (23-300); Potassium 4.3 mmol/L (3.4-5.1); Sodium 139 mmol/L (137-145); Total Protein 6.9 g/dL (6.3-8.2)
[2018-05-02 09:52] LABS: Troponin I < 0.012 ng/mL (0.01-0.034)
[2018-05-02 10:00] VITALS: BP 119/71; PULSE 68; RESP 21; O2SAT 98
--- NOTE | 2018-05-02 10:29 | PC.NURSE ---
Patient reports some dizziness today. Father of heart attack at age 36, so patient decided to come get checked out.
--- NOTE | 2018-05-02 10:59 | ED.CHESTPAIN ---
HPI - Chest Pain General Chief Complaint: Chest Pain Stated Complaint: CHEST PAIN SINCE YESTERDAY Time Seen by Provider: 05/02/18 08:52 Source: patient Mode of arrival: ambulatory Limitations: no limitations History of Present Illness HPI narrative: This is a 33-year-old female comes in with complaint of chest pain. Patient states that she has been having starting yesterday for about 12 hr. Sort of waxes and wanes in intensity. Sort of left substernal pressure. Patient states that she does not have any other symptoms with it. She is not having any shortness of breath, no back pain. No abdominal pain. She felt little dizzy but no cough cold or congestion, no nausea no vomiting no sweatiness. No diarrhea constipation patient states she has a history of heartburn might feel little bit similar but feels kind of different. She does not have any prior medical history she has seen a physician in the past and had her cholesterol test in the past was told was normal. Patient states that her dad at the age of 36 of a massive CT. She has 4 siblings which she states are healthy other than issues with drug addiction. She denies any other past medical history, surgical history other than her fallopian tubes being removed, she smokes but denies any alcohol or illicit. Related Data Home Medications Medication Instructions Recorded Confirmed sumatriptan succinate [Imitrex] 100 mg PO PRN PRN 05/02/18 05/02/18 Previous Rx's Medication Instructions Recorded omeprazole 20 mg capsule,delayed 20 mg PO BID #60 cap 09/23/17 release Allergies Allergy/AdvReac Type Severity Reaction Status Date / Time No Known Drug Allergies Allergy Verified 08/20/17 12:06 Review of Systems Review of Systems ROS Unobtainable: All systems reviewed & are unremarkable except as noted in HPI and below Constitutional Denies chills, Denies excessive sweating, Denies fatigue, Denies fever(s), Denies lethargy, Denies malaise and Denies weakness Cardiovascular Reports chest pain, Denies chest pain at rest, Denies chest pain with activity, Denies diaphoresis, Denies syncope, Denies pedal edema, Denies irregular heart rhythm, Denies lightheadedness, Denies radiating jaw, neck or arm pain, Denies palpitations, Denies dyspnea, Denies dyspnea on exertion and Denies orthopnea Respiratory Denies change in phlegm color, Denies chest congestion, Denies cough, Denies dyspnea and Denies dyspnea on exertion Gastrointestinal Gastrointestinal: Denies abdominal pain, Denies change in bowel habits, Denies diarrhea, Denies nausea and Denies vomiting Musculoskeletal Denies back pain Integumentary/Breasts Denies rash Neurologic Denies syncope and Denies weakness Psychiatric Reports other (stress) Endocrine Denies excessive sweating, Denies fatigue and Denies palpitations PFSH Family History Mother Age: 63 Hypertension Social History Smoking Status: Current every day smoker Social History Smoking Status: Current every day smoker Exam Narrative Exam Narrative: GENERAL: Alert and oriented x three, well-nourished, well-appearing female in no acute istress. HEENT: Head normocephalic, atraumatic, EOMI, pupils reactive, face symmetric, moist mucous membranes NECK: Supple, full range of motion CARDIOVASCULAR: Regular rate and rhythm without murmurs, rubs or gallops. RESPIRATORY: Breath sounds equal bilaterally, no wheezes rales or rhonchi. ABDOMEN: Soft, nontender. Normoactive bowel sounds all 4 quadrants. No guarding or rebound, rigidity, no mass : No CVA tenderness EXTREMITIES: Normal range of motion, no clubbing or edema. Neurovascularly intact NEUROLOGICAL: Cranial nerves II through XII grossly intact. Moving all extremities SKIN: Warm, dry, no petechiae, no rashes or lesions. Initial Vital Signs Initial Vital Signs: Vital Signs Temperature 98.0 F 05/02/18 09:00 Pulse Rate 64 05/02/18 09:00 Respiratory Rate 16 05/02/18 09:00 Blood Pressure 120/68 05/02/18 09:00 Pulse Oximetry 99 05/02/18 09:00 Course Orders Ordered: Discontinued Medications Aspirin (Aspirin Chew) 324 mg PO NOW ONE Stop: 05/02/18 09:29 Last Admin: 05/02/18 09:30 Dose: 324 mg Sodium Chloride (Normal Saline 0.9%) 1,000 mls @ 150 mls/hr IV CONT JUSTO Vital Signs - 8 hr 05/02/18 11:55 Pulse Rate 72 Respiratory Rate 17 Blood Pressure [Right Arm] 108/78 Pulse Oximetry 99 MDM - Chest Pain Lab Data Attestation: I reviewed the patient's lab results. Result diagrams: 05/02/18 09:20 05/02/18 09:20 Lab Results 05/02/18 05/02/18 05/02/18 Range/Units 09:20 09:20 09:20 WBC 6.5 (4.5-11.0) X10^3/uL RBC 4.66 (4.0-5.2) X10^6/uL Hgb 14.1 (12.0-16.0) g/dL Hct 41.7 (36-46) % MCV 89.4 (80-100) fL MCH 30.2 (26-34) PG MCHC 33.7 (30-36) % RDW 13.1 (11.6-14.8) % Plt Count 244 (150-400) X10^3/uL Neut % (Auto) 65.8 (50-75) % Lymph % (Auto) 22.8 L (25-40) % [place] % (Auto) 7.6 (3-14) % Eos % (Auto) 2.7 (2-4) % Baso % (Auto) 1.1 (0-2) % Neut # (Auto) 4300 (6889-0180) /uL Lymph # (Auto) 1500 (9088-5643) /uL [place] # (Auto) 500 (0-900) /uL Eos # (Auto) 200 (0-450) /uL Baso # (Auto) 100 (0-100) /uL PT 10.9 (10.1-12.7) SECONDS INR 1.0 (0.9-1.3) APTT 30 (26.4-36.2) SECONDS Sodium 139 (137-145) mmol/L Potassium 4.3 (3.4-5.1) mmol/L Chloride 104 (98-107) mmol/L Carbon Dioxide 24 (22-32) mmol/L BUN 11 (7-17) mg/dL Creatinine 0.60 (0.52-1.04) mg/dL Estimated GFR > 60.0 (>60) mL/min BUN/Creatinine Ratio 18.3 (6-22) Glucose 97 (70-100) mg/dL Calcium 8.6 (8.4-10.2) mg/dL Total Bilirubin 0.4 (0.2-1.3) mg/dL AST 12 L (14-36) IU/L ALT 22 (9-52) IU/L Alkaline Phosphatase 59 (38-126) U/L Total Creatine Kinase 57 (30-135) U/L CK-MB (CK-2) TNP CK-MB (CK-2) Rel Index TNP Troponin I < 0.012 (0.01-0.034) ng/mL Total Protein 6.9 (6.3-8.2) g/dL Albumin 4.0 (3.5-5.0) g/dL Globulin 2.9 (1.7-4.1) g/dL Albumin/Globulin Ratio 1.4 (1.0-2.8) Lipase 48 (23-300) U/L Imaging Data Chest x-ray: Radiologist's impression: Kitty Noguera 33 F [address] [address] XRay Report Signed Patient: Kitty Noguera AMR#: [id number] : 1985Acct:[id number] Age/Sex: 33 / FDate of Service: 05/02/18 Loc: ED Accession Number: [id number] Procedure: XR chest 1V Ordering Provider: Celina Pearce D.O. PROCEDURE: XR CHEST 1V INDICATIONS: chest pain TECHNIQUE: One view of the chest was acquired. COMPARISON: [facility], YENY, SHOULDER MINIMUM 2VIEW RIGHT, 10/18/2011, 12:47. [facility], RG, XR CXR 2 VIEW, 02/19/2005, 9:37. FINDINGS: Surgical changes and devices: None. Lungs and pleura: No consolidations. Questionable trace costophrenic angle blunting bilaterally. Mediastinum: Mediastinal contours appear normal. Heart size is normal. Bones and chest wall: Questionable appearance of sclerosis overlying the right humeral head. Overlying soft tissues appear unremarkable. IMPRESSION: 1. Questionable minimal bilateral effusions. 2. Appearance of sclerosis overlying the right humeral head, new since 2011. Recommend correlation to overlying structure. Otherwise, sclerotic lesion cannot be excluded shoulder series is recommended for further evaluation. Dictated by: Carmenza Bedolla M.D. on 05/02/2018 at 9:14 Approved by: Carmenza Bedolla M.D. on 05/02/2018 at 9:1 ECG Data Attestation: I personally reviewed and interpreted this ECG as follows: Interpretation: Sinus rhythm with a rate of 62 P are interval 106 [place] 97 QTC of 403. No ST elevation or depression. MDM Narrative Medical decision making narrative: Did discuss with patient that she had change on her shoulder x-ray that needs to be followed up and have dedicated images. Patient is aware this. Also spoke with the cardiology and they schedule appointment but will be 2 months. Discussed for patient to return if recurrent symptoms, also given options for primary care follow up. Discharge Plan Departure Patient Disposition: Home Clinical Impression: Chest pain Discharge Date/Time: 05/02/18 11:58 Interventions: ED Discharge Assessment Last Done: 05/02/18 11:56 Instructions: DI for Chest Pain Activity Restrictions/Additional Instructions: Follow up with cardiology in the next 3-5 days for recheck. Call for an appointment. Take an aspirin 81mg daily until cleared by cardiology. Return to the ER for new chest pain, shortness of breath, passing out, persistent vomiting, lightheadedness, swelling in her lower extremities or other new or concerning symptoms. Prescriptions: No Action omeprazole 20 mg capsule,delayed release(DR/EC) 20 mg PO BID Qty: 60 RF: 0 sumatriptan succinate [Imitrex] 100 MG tablet 100 mg PO PRN PRN (Reason: Migraine Headache) RF: 0 Referrals: Kaylen Marley PA-C [Primary Care Provider] - Monie Hickey MD [Physician] -
[2018-05-02 11:05] VITALS: BP 101/65; PULSE 64; RESP 21; O2SAT 99
--- NOTE | 2018-05-02 11:33 | ED_ITS ---
HPI - Chest Pain General Chief Complaint: Chest Pain Stated Complaint: CHEST PAIN SINCE YESTERDAY Time Seen by Provider: 05/02/18 08:52 Source: patient Mode of arrival: ambulatory Limitations: no limitations History of Present Illness HPI narrative: This is a 33-year-old female comes in with complaint of chest pain. Patient states that she has been having starting yesterday for about 12 hr. Sort of waxes and wanes in intensity. Sort of left substernal pressure. Patient states that she does not have any other symptoms with it. She is not having any shortness of breath, no back pain. No abdominal pain. She felt little dizzy but no cough cold or congestion, no nausea no vomiting no sweatiness. No diarrhea constipation patient states she has a history of heartburn might feel little bit similar but feels kind of different. She does not have any prior medical history she has seen a physician in the past and had her cholesterol test in the past was told was normal. Patient states that her dad at the age of 36 of a massive [place]. She has 4 siblings which she states are healthy other than issues with drug addiction. She denies any other past medical history, surgical history other than her fallopian tubes being removed, she smokes but denies any alcohol or illicit. Related Data Home Medications Medication Instructions Recorded Confirmed sumatriptan succinate [Imitrex] 100 mg PO PRN PRN 05/02/18 05/02/18 Previous Rx's Medication Instructions Recorded omeprazole 20 mg capsule,delayed 20 mg PO BID #60 cap 09/23/17 release Allergies Allergy/AdvReac Type Severity Reaction Status Date / Time No Known Drug Allergies Allergy Verified 08/20/17 12:06 Review of Systems Review of Systems ROS Unobtainable: All systems reviewed & are unremarkable except as noted in HPI and below Constitutional Denies chills, Denies excessive sweating, Denies fatigue, Denies fever(s), Denies lethargy, Denies malaise and Denies weakness Cardiovascular Reports chest pain, Denies chest pain at rest, Denies chest pain with activity, Denies diaphoresis, Denies syncope, Denies pedal edema, Denies irregular heart rhythm, Denies lightheadedness, Denies radiating jaw, neck or arm pain, Denies palpitations, Denies dyspnea, Denies dyspnea on exertion and Denies orthopnea Respiratory Denies change in phlegm color, Denies chest congestion, Denies cough, Denies dyspnea and Denies dyspnea on exertion Gastrointestinal Gastrointestinal: Denies abdominal pain, Denies change in bowel habits, Denies diarrhea, Denies nausea and Denies vomiting Musculoskeletal Denies back pain Integumentary/Breasts Denies rash Neurologic Denies syncope and Denies weakness Psychiatric Reports other (stress) Endocrine Denies excessive sweating, Denies fatigue and Denies palpitations PFSH Family History Mother Age: 63 Hypertension Social History Smoking Status: Current every day smoker Social History Smoking Status: Current every day smoker Exam Narrative Exam Narrative: GENERAL: Alert and oriented x three, well-nourished, well- appearing female in no acute istress. HEENT: Head normocephalic, atraumatic, EOMI, pupils reactive, face symmetric, moist mucous membranes NECK: Supple, full range of motion CARDIOVASCULAR: Regular rate and rhythm without murmurs, rubs or gallops. RESPIRATORY: Breath sounds equal bilaterally, no wheezes rales or rhonchi. ABDOMEN: Soft, nontender. Normoactive bowel sounds all 4 quadrants. No guarding or rebound, rigidity, no mass : No CVA tenderness EXTREMITIES: Normal range of motion, no clubbing or edema. Neurovascularly intact NEUROLOGICAL: Cranial nerves II through XII grossly intact. Moving all extremities SKIN: Warm, dry, no petechiae, no rashes or lesions. Initial Vital Signs Initial Vital Signs: Vital Signs Temperature 98.0 F 05/02/18 09:00 Pulse Rate 64 05/02/18 09:00 Respiratory Rate 16 05/02/18 09:00 Blood Pressure 120/68 05/02/18 09:00 Pulse Oximetry 99 05/02/18 09:00 Course Orders Ordered: Discontinued Medications Aspirin (Aspirin Chew) 324 mg PO NOW ONE Stop: 05/02/18 09:29 Last Admin: 05/02/18 09:30 Dose: 324 mg Sodium Chloride (Normal Saline 0.9%) 1,000 mls @ 150 mls/hr IV CONT JUSTO Vital Signs - 8 hr 05/02/18 11:55 Pulse Rate 72 Respiratory Rate 17 Blood Pressure [Right Arm] 108/78 Pulse Oximetry 99 MDM - Chest Pain Lab Data Attestation: I reviewed the patient's lab results. Result diagrams: 05/02/18 09:20 05/02/18 09:20 Lab Results 05/02/18 05/02/18 05/02/18 Range/Units 09:20 09:20 09:20 WBC 6.5 (4.5-11.0) X10^3/uL RBC 4.66 (4.0-5.2) X10^6/uL Hgb 14.1 (12.0-16.0) g/dL Hct 41.7 (36-46) % MCV 89.4 (80-100) fL MCH 30.2 (26-34) PG MCHC 33.7 (30-36) % RDW 13.1 (11.6-14.8) % Plt Count 244 (150-400) X10^3/uL Neut % (Auto) 65.8 (50-75) % Lymph % (Auto) 22.8 L (25-40) % Gonzales % (Auto) 7.6 (3-14) % Eos % (Auto) 2.7 (2-4) % Baso % (Auto) 1.1 (0-2) % Neut # (Auto) 4300 (5296-1122) /uL Lymph # (Auto) 1500 (4504-5277) /uL Gonzales # (Auto) 500 (0-900) /uL Eos # (Auto) 200 (0-450) /uL Baso # (Auto) 100 (0-100) /uL PT 10.9 (10.1-12.7) SECONDS INR 1.0 (0.9-1.3) APTT 30 (26.4-36.2) SECONDS Sodium 139 (137-145) mmol/L Potassium 4.3 (3.4-5.1) mmol/L Chloride 104 (98-107) mmol/L Carbon Dioxide 24 (22-32) mmol/L BUN 11 (7-17) mg/dL Creatinine 0.60 (0.52-1.04) mg/dL Estimated GFR > 60.0 (>60) mL/min BUN/Creatinine Ratio 18.3 (6-22) Glucose 97 (70-100) mg/dL Calcium 8.6 (8.4-10.2) mg/dL Total Bilirubin 0.4 (0.2-1.3) mg/dL AST 12 L (14-36) IU/L ALT 22 (9-52) IU/L Alkaline Phosphatase 59 (38-126) U/L Total Creatine Kinase 57 (30-135) U/L CK-MB (CK-2) TNP CK-MB (CK-2) Rel Index TNP Troponin I < 0.012 (0.01-0.034) ng/mL Total Protein 6.9 (6.3-8.2) g/dL Albumin 4.0 (3.5-5.0) g/dL Globulin 2.9 (1.7-4.1) g/dL Albumin/Globulin Ratio 1.4 (1.0-2.8) Lipase 48 (23-300) U/L Imaging Data Chest x-ray: Radiologist's impression: Kitty Noguera 33 F [address] [address] XRay Report Signed Patient: Kitty Noguera AMR#: [id number] : 1985Acct:[id number] Age/Sex: 33 / FDate of Service: 05/02/18 Loc: ED Accession Number: [id number] Procedure: XR chest 1V Ordering Provider: Celina Pearce D.O. PROCEDURE: XR CHEST 1V INDICATIONS: chest pain TECHNIQUE: One view of the chest was acquired. COMPARISON: [facility], YENY, SHOULDER MINIMUM 2VIEW RIGHT, 10/18/2011, 12:47. [facility], RG, XR CXR 2 VIEW, 02/19/2005, 9:37. FINDINGS: Surgical changes and devices: None. Lungs and pleura: No consolidations. Questionable trace costophrenic angle blunting bilaterally. Mediastinum: Mediastinal contours appear normal. Heart size is normal. Bones and chest wall: Questionable appearance of sclerosis overlying the right humeral head. Overlying soft tissues appear unremarkable. IMPRESSION: 1. Questionable minimal bilateral effusions. 2. Appearance of sclerosis overlying the right humeral head, new since 2011. Recommend correlation to overlying structure. Otherwise, sclerotic lesion cannot be excluded shoulder series is recommended for further evaluation. Dictated by: Carmenza Bedolla M.D. on 05/02/2018 at 9:14 Approved by: Carmenza Bedolla M.D. on 05/02/2018 at 9:1 ECG Data Attestation: I personally reviewed and interpreted this ECG as follows: Interpretation: Sinus rhythm with a rate of 62 P are interval 106 [place] 97 QTC of 403. No ST elevation or depression. MDM Narrative Medical decision making narrative: Did discuss with patient that she had change on her shoulder x-ray that needs to be followed up and have dedicated images. Patient is aware this. Also spoke with the cardiology and they schedule appointment but will be 2 months. Discussed for patient to return if recurrent symptoms, also given options for primary care follow up. Discharge Plan Departure Patient Disposition: Home Clinical Impression: Chest pain Discharge Date/Time: 05/02/18 11:58 Interventions: ED Discharge Assessment Last Done: 05/02/18 11:56 Instructions: DI for Chest Pain Activity Restrictions/Additional Instructions: Follow up with cardiology in the next 3-5 days for recheck. Call for an appointment. Take an aspirin 81mg daily until cleared by cardiology. Return to the ER for new chest pain, shortness of breath, passing out, persistent vomiting, lightheadedness, swelling in her lower extremities or other new or concerning symptoms. Prescriptions: No Action omeprazole 20 mg capsule,delayed release(DR/EC) 20 mg PO BID Qty: 60 RF: 0 sumatriptan succinate [Imitrex] 100 MG tablet 100 mg PO PRN PRN (Reason: Migraine Headache) RF: 0 Referrals: Kaylen Marley PA-C [Primary Care Provider] - Monie Hickey MD [Physician] -
[2018-05-02 11:55] VITALS: BP 108/78; PULSE 72; RESP 17; O2SAT 99
== END 2018-05-02 11:58 | disposition home or self-care (01) ==
PROVIDERS: Emergency Provider Emergency Medicine; PCP Physician Assistant
DX: R07.89 Other chest pain (principal)
CPT/HCPCS: 36591; 71045; 80053; 82550; 83690; 84484; 85025; 85610; 85730; 93005; 99283; 99285

== ENCOUNTER → 2018-09-05 10:00 | Outpatient (CLI) | payer OTHER, MEDICAID, SELFPAY ==
--- NOTE | 2018-09-05 10:06 | DI.RAD.S_ITS ---
PROCEDURE: XR LUMBAR SPINE MIN 3V INDICATIONS: back pain after injury TECHNIQUE: 3 views of the lumbar spine acquired. COMPARISON: [facility], , XR SACRUM COCCYX MIN 2V, 09/05/2018, 10:11. FINDINGS: Bones: 5 [id number] vertebrae are present. There is mild levocurvature but otherwise normal bony alignment. No vertebral body compression fractures. No suspicious bony lesions. Moderate facet arthropathy is present at L4-L5 and L5-S1. Soft tissues: Overlying bowel gas pattern is normal. No suspicious soft tissue calcifications. IMPRESSION: 1. No fractures. 2. Moderate facet arthropathy at L4-L5 and L5-S1. Dictated by: Scout Kenney M.D. on 09/05/2018 at 10:59 Approved by: Scout Kenney M.D. on 09/05/2018 at 11:01
--- NOTE | 2018-09-05 10:06 | DI.RAD.S_ITS ---
PROCEDURE: XR SACRUM COCCYX MIN 2V INDICATIONS: back pain after injury TECHNIQUE: 3 views of the sacrum and coccyx acquired. COMPARISON: [facility], CR, XR LUMBAR SPINE MIN 4V, 09/05/2018, 10:11. FINDINGS: Bones: No fractures or dislocations. No suspicious bony lesions. Moderate facet arthropathy is present at L4-L5 and L5-S1. Soft tissues: Visualized bowel gas pattern is normal. No suspicious soft tissue densities. IMPRESSION: 1. No fracture. 2. Moderate facet arthropathy at L4-L5 and L5-S1. Dictated by: Scout Kenney M.D. on 09/05/2018 at 10:53 Approved by: Scout Kenney M.D. on 09/05/2018 at 10:59
== END ==
PROVIDERS: PCP Physician Assistant; Visit Provider Nurse Practitioner Family
DX: M54.5 Low back pain (principal); M47.816 Spondylosis without myelopathy or radiculopathy, lumbar region; M47.817 Spondylosis without myelopathy or radiculopathy, lumbosacral region
CPT/HCPCS: 72100; 72220

== ENCOUNTER 2018-10-09 19:31 | Emergency (ER) | payer OTHER, MEDICAID, SELFPAY ==
[2018-10-09 19:32] VITALS: BP 82/36; PULSE 116; RESP 21; TEMP 37.1; O2SAT 94; BMI 25.1
--- NOTE | 2018-10-09 19:39 | ED.ALLEREA ---
HPI - Allergic Reaction General Chief complaint: Allergic Reaction Stated complaint: POSSIBLE ALLERGIC REACTION TO FLEXERIL Time Seen by Provider: 10/09/18 19:39 Source: patient Mode of arrival: ambulatory Limitations: no limitations History of Present Illness HPI narrative: The patient took a combination of Motrin and Flexeril less than 1 hr prior to arrival. Following the medications she had onset of lip and tongue swelling. She turned red across the face and in the neck. She denies difficulty breathing. She is alert, talking with a clear voice. She took Benadryl 50 mg at home after event occurred. She has unchanged as far. About 1 week ago she had a similar reaction following the use of Naprosyn and Flexeril. She used Tylenol in the past week without these other medications. Related Data Home Medications Medication Instructions Recorded Confirmed sumatriptan succinate [Imitrex] 100 mg PO PRN PRN 05/02/18 09/05/18 acetaminophen 500 mg tablet 1,000 mg PO Q6H PRN 09/05/18 09/05/18 Previous Rx's Medication Instructions Recorded cyclobenzaprine 10 mg tablet 10 mg PO TID #30 tab 09/05/18 naproxen 500 mg tablet 500 mg PO BID #30 tab 09/05/18 omeprazole 20 mg capsule,delayed 20 mg PO BID #60 cap 09/15/18 release prednisone 60 mg PO DAILY 5 Days tab 10/09/18 Allergies Allergy/AdvReac Type Severity Reaction Status Date / Time cyclobenzaprine Allergy Verified 10/09/18 19:46 [From Flexeril] NSAIDS (Non-Steroidal Allergy Verified 10/09/18 19:46 Anti-Inflamma Review of Systems Review of Systems ROS Unobtainable: All systems reviewed & are unremarkable except as noted in HPI and below Constitutional Reports as per HPI, Reports system reviewed and no additional complaints, except as docu, Denies fatigue, Denies lethargy and Denies malaise Eyes Denies change in vision and Denies diplopia ENT Comments: Complains of tongue and lip swelling. Cardiovascular Denies chest pain, Denies edema, Denies irregular heart rhythm, Denies lightheadedness, Denies palpitations, Denies dyspnea and Denies orthopnea Respiratory Denies cough, Denies dyspnea and Denies wheezing Gastrointestinal Gastrointestinal: Denies abdominal pain, Denies change in bowel habits, Denies diarrhea, Denies nausea and Denies vomiting Musculoskeletal Denies back pain, Denies muscle weakness, Denies numbness and Denies tingling Neurologic Denies numbness and Denies tingling Endocrine Denies fatigue and Denies palpitations Allergic/Immunologic Denies wheezing [facility] Medical History (Updated 10/10/18 @ 06:49 by Joss Umaña MD) Frequent headaches (Acute) No significant past surgical history (Acute) Family History Mother Age: 63 Hypertension Father No problems noted. Social History Smoking Status: Current every day smoker Family History Mother Age: 63 Hypertension Father No problems noted. Social History Smoking Status: Current every day smoker Exam Initial Vital Signs Initial Vital Signs: Vital Signs Temperature 98.7 F 10/09/18 19:32 Pulse Rate 116 H 10/09/18 19:32 Respiratory Rate 21 10/09/18 19:32 Blood Pressure 82/36 L 10/09/18 19:32 Pulse Oximetry 94 10/09/18 19:32 Const General: cooperative, well developed, No acute distress and anxious Nutritional Appearance: well nourished Orientation: alert, awake, oriented x3 and not confused [facility] Head: normal to inspection, normocephalic and atraumatic Ears: external ears normal Mouth: oral mucosae normal and lip normal Throat: uvula midline and other (Slight erythema and edema to the oropharynx) Eyes General: appearance normal, both eyes and all related structures Eyelids: eyelids normal Conjunctivae: conjunctivae normal Sclera: sclerae normal Pupils: PERRL EOM: EOM intact bilaterally Neck Neck: normal visual inspection, full ROM and trachea midline Lymphatic: No lymphedema and No lymphadenopathy Chest Chest: normal inspection of the chest Resp Effort & Inspection: normal respiratory effort, able to speak in complete sentences and no use of accessory muscles Auscultation: clear to auscultation bilaterally, no rales, no rhonchi and no wheezes Cardio Rate: tachycardic Rhythm: regular rhythm Heart Sounds: S1 normal, S2 normal, no click, no gallops, no murmurs and no rubs Pulses: normal peripheral pulses GI Inspection: non-distended Palpation: soft, no hepatosplenomegaly, No guarding and No tender Auscultation: normal bowel sounds Back/Spine/Pelvis Back: normal to inspection Skin Other: Bright macular erythematous rash to the face, neck, chest and upper back. No urticaria. Neuro General: alert, oriented x3, gait normal and no focal motor deficits Speech: speech normal Extrem General: full ROM and no clubbing, cyanosis or edema Course Course Narrative: Her erythema is cleared prior to discharge. She took Benadryl home, and was given epinephrine and Solu-Medrol here.. Subjective swelling to the lips and tongue has improved. Slight or pharyngeal erythema/edema has resolved. Her lungs are clear. She has no complaints of dyspnea, or airway tightness. She will be discharged on Benadryl and prednisone. Orders Ordered: Discontinued Medications Epinephrine HCl (Adrenalin) 0.3 mg IM NOW ONE Stop: 10/09/18 19:40 Last Admin: 10/09/18 19:43 Dose: 0.3 mg Famotidine (Pepcid) 20 mg in 50 mls @ 200 mls/hr IV NOW ONE Stop: 10/09/18 19:54 Last Infusion: 10/09/18 23:11 Dose: 0 mls/hr Admin: 10/09/18 19:44 Dose: 200 mls/hr Sodium Chloride (Normal Saline 0.9%) 1,000 mls @ 1,000 mls/hr IV BOLUS ONE Stop: 10/09/18 20:40 Last Infusion: 10/09/18 23:11 Dose: 0 mls/hr Admin: 10/09/18 19:44 Dose: 1,000 mls/hr Methylprednisolone (Solu-Medrol 125 Mg Vial) 125 mg IV NOW ONE Stop: 10/09/18 19:41 Last Admin: 10/09/18 19:43 Dose: 125 mg Vital Signs - 8 hr 10/09/18 23:11 Pulse Rate 59 L Blood Pressure 138/46 L Pulse Oximetry 98 Discharge Plan Departure Patient Disposition: Home Clinical Impression: Allergy to pain medication Discharge Date/Time: 10/09/18 23:13 Interventions: ED Discharge Assessment Last Done: 10/09/18 23:11 Instructions: DI for Adverse Drug Reaction -- Allergic Activity Restrictions/Additional Instructions: Avoid the use of Motrin, Naprosyn, aspirin, or other similar drugs. Mode wait the use of Flexeril. It is uncertain which medication he never reacted with. Take Tylenol as needed for pain. Prednisone 60 mg daily for the next 5 days. Benadryl every 4 hr if you have recurrence of airway tightness or rash. Return here if symptoms become concerning. Follow up with her doctor next week as planned. Prescriptions: New prednisone 20 mg tablet 60 mg PO DAILY 5 Days RF: 0 No Action omeprazole 20 mg capsule,delayed release(DR/EC) 20 mg PO BID Qty: 60 RF: 0 acetaminophen [Tylenol Extra Strength] 500 mg tablet 1,000 mg PO Q6H PRNRF: 0 cyclobenzaprine 10 mg tablet 10 mg PO TID Qty: 30 RF: 0 naproxen 500 mg tablet 500 mg PO BID Qty: 30 RF: 1 sumatriptan succinate [Imitrex] 100 MG tablet 100 mg PO PRN PRN (Reason: Migraine Headache) RF: 0 Referrals: Kaylen Marley PA-C [Primary Care Provider] -
[2018-10-09] MEDS: methylPREDNISolone 125 MG/2 ML VIAL IV (19:43)
[2018-10-09] MEDS: EPINEPHrine 1 MG/ML AMPUL 0.3 MG IM (19:43)
[2018-10-09] MEDS: FAMOTIDINE 20 MG/50 ML PIGGYBACK 200 MG IV (19:44)
[2018-10-09] MEDS: SODIUM CHLORIDE 0.9% 1,000 ML 1000 ML IV (19:44)
--- NOTE | 2018-10-09 20:09 | PC.NURSE ---
Pt states having an episode about 1 week ago when she took Flexiril and aleve, stated she got real flushed and hot. did take dose of benadryl during that episode. Tonight states thought reaction may have been from aleve so took flexiril with 800 mg of ibuprofen and reaction started about 5 min after medications were taken. STates before a week ago, last time she had taken flexiril was when she was 17.
[2018-10-09 21:22] VITALS: BP 113/66; PULSE 83; RESP 13; O2SAT 100
[2018-10-09 23:11] VITALS: BP 138/46; PULSE 59; O2SAT 98
== END 2018-10-09 23:13 | disposition home or self-care (01) ==
PROVIDERS: Emergency Provider Emergency Medicine; Family Provider Physician Assistant; PCP Physician Assistant
DX: R22.9 Localized swelling, mass and lump, unspecified (principal); T39.315A Adverse effect of propionic acid derivatives, initial encounter; Z88.6 Allergy status to analgesic agent
CPT/HCPCS: 96365; 96366; 96372; 96375; 99283; 99284; J0171; J2930

== ENCOUNTER → 2018-10-29 10:44 | Outpatient (CLI) | payer OTHER, MEDICAID, SELFPAY ==
--- NOTE | 2018-10-29 10:45 | DI.RAD.S_ITS ---
PROCEDURE: XR LUMBAR SPINE MIN 4V INDICATIONS: Fall onto back on 10/25; Pain L3-S1 Hx fx of L3 or L4 TECHNIQUE: 4 views of the lumbar spine were acquired. COMPARISON: [facility], CR, XR LUMBAR SPINE 2-3V, 09/05/2018, 10:11. [facility], CR, XR LUMBAR SPINE 2-3V, 08/20/2017, 12:33. FINDINGS: Bones: 5 nonrib-bearing vertebrae are present. There is normal bony alignment. No vertebral body compression fractures. No suspicious bony lesions. There is a mild degree of degenerative disc height reduction and L4-5 and a mild to moderate degree of degenerative facet hyperostosis from L4-S1. No definite spinal or foraminal stenosis is seen. Soft tissues: Overlying bowel gas pattern is normal. No suspicious soft tissue calcifications. Oblique images: No pars defects. IMPRESSION: Stable mild lower lumbosacral spine degenerative disc disease and mild to moderate facet osteoarthritis but no compression fracture is found. The clinical history provided indicates prior compression fracture at L3 or L4, but each of these 2 vertebral bodies appear normal. Dictated by: Nils Riley M.D. on 10/29/2018 at 11:11 Approved by: Nils Riley M.D. on 10/29/2018 at 11:12
== END ==
PROVIDERS: PCP Physician Assistant; Visit Provider Physician Assistant
DX: M54.5 Low back pain (principal); M51.37 Other intervertebral disc degeneration, lumbosacral region; M47.817 Spondylosis without myelopathy or radiculopathy, lumbosacral region
CPT/HCPCS: 72110

== ENCOUNTER → 2019-04-02 11:38 | Outpatient (CLI) | payer OTHER, MEDICAID, SELFPAY ==
[2019-04-02 12:15] LABS: Influenza A - CEPHEID Flu A NEGATIVE (NEGATIVE); Influenza B - CEPHEID Flu B POSITIVE (NEGATIVE)
== END ==
PROVIDERS: PCP Physician Assistant; Visit Provider Physician Assistant
DX: R68.89 Other general symptoms and signs (principal)
CPT/HCPCS: 87502

== ENCOUNTER → 2019-10-20 10:43 | Outpatient (CLI) | payer OTHER, MEDICAID, SELFPAY ==
[2019-10-20 10:48] LABS: Bacteria Urine None Seen
[2019-10-20 12:11] LABS: Appearance Urine UA CLOUDY; Bilirubin Urine UA NEGATIVE (NEGATIVE); Color Urine UA RED; Glucose Urine UA NEGATIVE (Negative); Ketones Urine UA TRACE (NEGATIVE); Leukocyte Esterase Urine UA 2+ (NEGATIVE); Nitrite Urine UA POSITIVE (Negative); Occult Blood Urine UA 3+ (Negative); Protein Urine UA 3+ (Negative)
[2019-10-20 12:27] LABS: Culture Indicated Urine Specimen Cultured; RBC Urine 30-100/HPF (0-5/HPF); WBC Urine 10-30/HPF (0-5/HPF)
== END ==
PROVIDERS: PCP Nurse Practitioner Family; Referring Provider Nurse Practitioner Family; Visit Provider Nurse Practitioner Family
DX: R33.9 Retention of urine, unspecified (principal); R39.15 Urgency of urination
CPT/HCPCS: 81001; 87086

== ENCOUNTER → 2019-10-21 16:09 | Outpatient (CLI) | payer OTHER, MEDICAID, SELFPAY ==
--- NOTE | 2019-10-21 16:12 | DI.RAD.S_ITS ---
PROCEDURE: XR WRIST RT MIN 3V INDICATIONS: wrist pain bilaterally, worse on the right TECHNIQUE: 4 views of the wrist were acquired. COMPARISON: None. FINDINGS: Bones: No fractures or dislocations. No suspicious bony lesions. Scaphoid view: Intact scaphoid. Soft tissues: No suspicious soft tissue calcifications. IMPRESSION: No definite radiographic abnormality. If pain persists with conservative management, consider cross sectional imaging such as CT or MRI for further assessment. Dictated by: Raul Brewster [facility] Interpreted: Marjorie Garrett MD on 10/21/2019 at 16:57 Approved by: Marjorie Garrett M.D. on 10/21/2019 at 17:10
--- NOTE | 2019-10-21 16:22 | DI.RAD.S_ITS ---
PROCEDURE: XR HAND RT MIN 3V INDICATIONS: wrist pain bilaterally, worse on the right TECHNIQUE: 3 views of the hand(s) acquired. COMPARISON: [facility], , HAND 3V RIGHT, 12/08/2010, 5:57. FINDINGS: Bones: No fractures or dislocations. Carpal bones are normally aligned. No suspicious bony lesions. Soft tissues: No suspicious soft tissue calcifications. IMPRESSION: No definite radiographic abnormality. If pain persists with conservative management, consider cross sectional imaging such as CT or MRI for further assessment. Dictated by: Raul Brewster [facility] Interpreted: Marjorie Garrett MD on 10/21/2019 at 16:58 Approved by: Marjorie Garrett M.D. on 10/21/2019 at 17:11
== END ==
PROVIDERS: PCP Nurse Practitioner Family; Referring Provider Nurse Practitioner Family; Visit Provider Nurse Practitioner Family
DX: M25.531 Pain in right wrist (principal); M25.532 Pain in left wrist
CPT/HCPCS: 73110; 73130

== ENCOUNTER 2019-10-26 21:38 | Emergency (ER) | payer OTHER, MEDICAID, SELFPAY ==
[2019-10-26 22:05] VITALS: BP 145/64; PULSE 116; RESP 18; TEMP 36.8; O2SAT 99; BMI 26.9
--- NOTE | 2019-10-27 01:13 | PC.NURSE ---
0000: late entry-- 3 attempts were made to contact patient in waiting room without success. Pt entered as VDC.
== END 2019-10-26 23:55 | disposition left against medical advice (07) ==
PROVIDERS: Emergency Provider Emergency Medicine; PCP Nurse Practitioner Family
DX: R30.0 Dysuria (principal)
CPT/HCPCS: 99281

== ENCOUNTER → 2019-10-27 11:54 | Outpatient (CLI) | payer OTHER, MEDICAID, SELFPAY | PROVIDERS: PCP Nurse Practitioner Family; Visit Provider Registered Nurse Diabetes Educator | DX: R30.0 Dysuria (principal) | CPT/HCPCS: 87086 ==

== ENCOUNTER → 2019-11-02 17:30 | Outpatient (CLI) | payer OTHER, MEDICAID, SELFPAY ==
[2019-11-02 20:47] LABS: Urine Chlamydia NOT DETECTED
[2019-11-03 14:31] LABS: Urine N gonorrhoeae DETECTED
== END ==
PROVIDERS: PCP Nurse Practitioner Family; Visit Provider Registered Nurse Diabetes Educator
DX: R30.0 Dysuria (principal)
CPT/HCPCS: 87491; 87591

== ENCOUNTER 2020-12-01 05:08 | Emergency (ER) | payer OTHER, MEDICAID, SELFPAY ==
[2020-12-01 05:21] VITALS: BP 146/76; PULSE 100; RESP 14; TEMP 36.8; O2SAT 99; BMI 27.8
--- NOTE | 2020-12-01 05:35 | ED.GENADULT ---
HPI - General Adult General Chief complaint: Upper Respiratory Symptoms Stated complaint: son is covid +/she has lost taste/body feels hot Time Seen by Provider: 12/01/20 05:30 Source: patient Mode of arrival: Ambulatory Limitations: no limitations History of Present Illness HPI narrative: The patient here for COVID testing. Loss sense of taste yesterday. Daughters were here last night for COVID testing. One of them tested positive for COVID. The other was negative. Patient denies any cough cold congestion fever chills. No sore throat. No dyspnea. Vital signs noted. No tachypnea no hypoxia no fever. Related Data Home Medications Medication Instructions Recorded Confirmed acetaminophen 500 mg tablet 1,000 mg PO Q6H PRN 09/05/18 08/12/20 (Tylenol Extra Strength) Previous Rx's Medication Instructions Recorded citalopram 20 mg tablet 20 mg PO DAILY #90 tab 12/10/19 omeprazole 40 mg capsule,delayed 40 mg PO DAILY #90 cap 01/19/20 release sumatriptan succinate 100 mg 100 mg PO Q2-4H PRN #10 tab 08/12/20 tablet (Imitrex) varenicline 0.5 mg (11)-1 mg (42) See Rx Instructions PO PER PKG DIR 08/12/20 tablets in a dose pack (Chantix #53 ea Starting Month Box) varenicline 1 mg tablet (Chantix 1 mg PO BID #56 tab 08/12/20 Continuing Month Box) Allergies Allergy/AdvReac Type Severity Reaction Status Date / Time NSAIDS (Non-Steroidal Allergy Severe Swelling Verified 12/01/20 05:25 Anti-Inflamma all over and my whole body turned beet red Review of Systems Review of Systems Narrative: GENERAL: Denies chills, fatigue, malaise, fever, sweats. HEENT: Denies sinus pain, ear pain, sore throat RESPIRATORY: Denies dyspnea, cough CARDIOVASCULAR: Denies chest pain, palpitations GASTROINTESTINAL: Denies nausea, vomiting, abdominal pain : Denies dysuria, frequency, hematuria MUSCULOSKELETAL: denies muscle or bony pain SKIN: Denies rash, skin lesions NEUROLOGIC: Denies weakness, numbness ROS Unobtainable: All systems reviewed & are unremarkable except as noted in HPI and below Patient History Medical History (Updated 12/01/20 @ 05:44 by Giorgi Stanton MD) Carpal tunnel syndrome on both sides (~2019) Cervical radiculopathy Cervical somatic dysfunction Chronic back pain (~2005) Depression with anxiety Frequent headaches GERD (gastroesophageal reflux disease) (~1997) Hand pain History of migraine headaches PTSD (post-traumatic stress disorder) (~2009) Restless leg syndrome (~2009) Rheumatoid arthritis (~2013) Right wrist pain Shoulder pain (~2009) Thoracic region somatic dysfunction Surgical History Anesthesia Fallopian tube disorder (~2016) Family History Mother Age: 65 Hypertension Father History of heart disease Hyperlipidemia Hypertension Grandfather Stroke Grandmother Stroke Grandfather History of heart disease Grandmother History of heart disease Social History Smoking Status: Current every day smoker Tobacco: How many years used: 15 quit status: not considering quitting (not at this time.) second hand exposure: No alcohol intake: former (I quit about 8 months ago (as of 10/14/18).) substance use type: former substance user (it's been 3 months since I quit marijuana (as of 10/14/18).) Smoking Status: Current every day smoker alcohol intake frequency: 0-2 drinks per day Substance Use Type: does not use and marijuana Exam Narrative Exam Narrative: GENERAL: in no distress, not toxic not dyspneic HEAD: Normocephalic. EYES: Pupils equal round No scleral icterus. No injection no discharge NECK: Trachea midline. CARDIOVASCULAR: Regular rate and rhythm without murmurs RESPIRATORY: Clear to auscultation. Breath sounds equal bilaterally. No wheezes, rales, or rhonchi. BACK: No flank tenderness. NEURO: AOx4. SKIN: Warm and dry PSYCH: Not anxious, is cooperative Initial Vital Signs Initial Vital Signs: Vital Signs Temperature 98.2 F 12/01/20 05:21 Pulse Rate 100 H 12/01/20 05:21 Respiratory Rate 14 12/01/20 05:21 Blood Pressure 146/76 H 12/01/20 05:21 Pulse Oximetry 99 12/01/20 05:21 Course Course Course Narrative: No new issues during course of stay Orders Ordered: ED Orders 12/01/20 05:15 COVID19 -Nasal swab/Pre-Proc Stat Discontinued Medications COVID-19 Vacc Ad26-S Recombinant (JSN) (PF) (Covid-19 Vacc, Ad26(Suzanne)/Pf 0.5 Ml) 0.5 ml IM .ONCE ONE Stop: 12/01/20 05:51 Reevaluation(s) Reevaluation #1: Reviewed results with patient. She states she will see her family doctor about getting the COVID vaccine. She states she will quarantine. Currently has lost of taste sensation Time: 05:45 Vital Signs Vital signs: Vital Signs - 8 hr 12/01/20 05:21 Temperature 98.2 F Pulse Rate 100 H Respiratory Rate 14 Blood Pressure 146/76 H Pulse Oximetry 99 Medical Decision Making Differential Diagnosis Differential Diagnosis: COVID exposure Lab Data Labs: Lab Results 12/01/20 Range/Units 05:15 SARS-CoV-2 (PCR) Negative (Negative) MDM Narrative Medical decision making narrative: Appropriate for discharge home. Exam and laboratory studies reassuring. No CT scan or x-ray imaging at this time indicated. No blood work indicated. No fever. No hypoxia or tachypnea. No dyspnea. Return precautions reviewed patient. She desires discharge home. Not toxic Discharge Plan Departure Patient Disposition: Home Clinical Impression: Close exposure to COVID-19 virus Instructions: DI for COVID-19 (Suspected or Confirmed ), About the COVID-19 Vaccine Activity Restrictions/Additional Instructions: Return if any questions or concerns or develop any trouble breathing. Return if worsening symptoms. Otherwise see family doctor in a week for recheck. Must quarantine 10 days due to exposure to COVID. Prescriptions: No Action citalopram 20 mg tablet 20 mg PO DAILY Qty: 90 RF: 3 acetaminophen [Tylenol Extra Strength] 500 mg tablet 1,000 mg PO Q6H PRNRF: 0 omeprazole 40 mg capsule,delayed release(DR/EC) 40 mg PO DAILY Qty: 90 RF: 3 sumatriptan succinate [Imitrex] 100 mg tablet 100 mg PO Q2-4H PRN (Reason: Migraine Headache) Qty: 10 RF: 6 Chantix Starting Month Box 0.5 mg (11)- 1 mg (42) tablets,dose pack See Rx Instructions PO PER PKG DIR Qty: 53 RF: 0 Chantix Continuing Month Box 1 mg tablet 1 mg PO BID Qty: 56 RF: 3 Referrals: Dexter Hagen MD [Primary Care Provider] -
[2020-12-01 05:40] LABS: COVID19 -Nasal RAPID Negative (Negative)
== END 2020-12-01 05:58 | disposition home or self-care (01) ==
PROVIDERS: Emergency Provider Emergency Medicine; PCP Internal Medicine
DX: Z20.822 Contact with and (suspected) exposure to COVID-19 (principal)
CPT/HCPCS: 87635; 99281; 99282; C9803

== ENCOUNTER 2020-12-17 06:54 | Emergency (ER) | payer OTHER, MEDICAID, SELFPAY ==
[2020-12-17 07:14] VITALS: BP 138/80; PULSE 120; RESP 16; TEMP 36.8; O2SAT 97; BMI 28.1
--- NOTE | 2020-12-17 07:27 | ED.WOUNDLAC ---
HPI - Wound/Laceration General Chief Complaint: Wound/Laceration Stated Complaint: bump/bite swelling and painful on left foot Time Seen by Provider: 12/17/20 07:22 History of Present Illness HPI narrative: The patient is a 35-year-old female with history of GERD presenting with left foot erythema. She says she was cleaning out a friend's basement yesterday this morning she noticed some redness on her foot and when she went to walk it hurt. No fever or chills. Related Data Home Medications Medication Instructions Recorded Confirmed acetaminophen 500 mg tablet 1,000 mg PO Q6H PRN 09/05/18 08/12/20 (Tylenol Extra Strength) Previous Rx's Medication Instructions Recorded citalopram 20 mg tablet 20 mg PO DAILY #90 tab 12/10/19 omeprazole 40 mg capsule,delayed 40 mg PO DAILY #90 cap 01/19/20 release sumatriptan succinate 100 mg 100 mg PO Q2-4H PRN #10 tab 08/12/20 tablet (Imitrex) varenicline 0.5 mg (11)-1 mg (42) See Rx Instructions PO PER PKG DIR 08/12/20 tablets in a dose pack (Chantix #53 ea Starting Month Box) varenicline 1 mg tablet (Chantix 1 mg PO BID #56 tab 08/12/20 Continuing Month Box) doxycycline hyclate 100 mg capsule 100 mg PO BID #14 cap 12/17/20 Allergies Allergy/AdvReac Type Severity Reaction Status Date / Time NSAIDS (Non-Steroidal Allergy Severe Swelling Verified 12/01/20 05:25 Anti-Inflamma all over and my whole body turned beet red Review of Systems Review of Systems Narrative: GENERAL: Denies chills,fever HEENT: Denies throat pain RESPIRATORY: Denies dyspnea, cough, wheezing CARDIOVASCULAR: Denies chest pain, palpitations GASTROINTESTINAL: Denies nausea, vomiting MUSCULOSKELETAL: Denies extremity pain, injury SKIN: see HPI NEUROLOGIC: Denies weakness, dizziness, headache, numbness 8 point review of systems is negative except for those stated above and HPI Patient History Medical History (Updated 12/17/20 @ 07:43 by Tamela Tucker DO) Carpal tunnel syndrome on both sides (~2019) Cervical radiculopathy Cervical somatic dysfunction Chronic back pain (~2005) Depression with anxiety Frequent headaches GERD (gastroesophageal reflux disease) (~1997) Hand pain History of migraine headaches PTSD (post-traumatic stress disorder) (~2009) Restless leg syndrome (~2009) Rheumatoid arthritis (~2013) Right wrist pain Shoulder pain (~2009) Thoracic region somatic dysfunction Surgical History Anesthesia Fallopian tube disorder (~2016) Family History Mother Age: 65 Hypertension Father History of heart disease Hyperlipidemia Hypertension Grandfather Stroke Grandmother Stroke Grandfather History of heart disease Grandmother History of heart disease Social History Smoking Status: Current every day smoker Tobacco: How many years used: 15 quit status: not considering quitting (not at this time.) second hand exposure: No alcohol intake: former (I quit about 8 months ago (as of 10/14/18).) substance use type: former substance user (it's been 3 months since I quit marijuana (as of 10/14/18).) Smoking Status: Current every day smoker alcohol intake frequency: 0-2 drinks per day Substance Use Type: does not use and marijuana Exam Initial Vital Signs Initial Vital Signs: Vital Signs Temperature 98.2 F 12/17/20 07:14 Pulse Rate 120 H 12/17/20 07:14 Respiratory Rate 16 12/17/20 07:14 Blood Pressure 138/80 12/17/20 07:14 Pulse Oximetry 97 12/17/20 07:14 GENERAL: Well-appearing, well-nourished and in no acute distress. CARDIOVASCULAR: peripheral pulses in tact, cap refill <2 sec RESPIRATORY: No respiratory distress, speaks in full sentences without difficulty EXTREMITIES: Normal range of motion, no clubbing or edema. Neurovascularly intact NEUROLOGICAL: Cranial nerves II through XII grossly intact. Normal gait and speech. SKIN: Left foot scab erythema 1 cm x 1 cm no fluctuation no drainage however there is surrounding erythema no induration does not extend into ankle or on too leg Course Vital Signs Vital signs: Vital Signs - 8 hr 12/17/20 07:59 Pulse Rate 105 H Respiratory Rate 18 Blood Pressure 125/69 Pulse Oximetry 99 MDM - Wound/Laceration MDM Narrative Medical decision making narrative: The patient has some mild erythema on her left foot. No significant abscess fluctuation. Discussed with her waiting on antibiotics versus starting them now. At this time will write her a prescription, she will likely start them now. And return as needed. Discharge Plan Departure Patient Disposition: Home Clinical Impression: Cellulitis of foot, left Instructions: DI for Cellulitis -- Adult Activity Restrictions/Additional Instructions: *You have been diagnosed with left foot cellulitis *What to do: At this time you may choose to watch foot for a day or so to see if infection and redness is getting worse. If it is worse tomorrow then start antibiotics. It is also appropriate and okay to just start antibiotics today. Keep area clean and dry with soap and water. *Continue to take medications as directed Antibiotic ointment 1-2 times daily Doxycycline 100 mg twice daily for 7 days *Follow up with your primary care provider in 2-3 days *Return to ER if you should have increasing redness, fever, pain, swelling any new, worsening or concerning symptoms Prescriptions: New doxycycline hyclate 100 mg capsule 100 mg PO BID Qty: 14 RF: 0 No Action citalopram 20 mg tablet 20 mg PO DAILY Qty: 90 RF: 3 acetaminophen [Tylenol Extra Strength] 500 mg tablet 1,000 mg PO Q6H PRNRF: 0 omeprazole 40 mg capsule,delayed release(DR/EC) 40 mg PO DAILY Qty: 90 RF: 3 sumatriptan succinate [Imitrex] 100 mg tablet 100 mg PO Q2-4H PRN (Reason: Migraine Headache) Qty: 10 RF: 6 Chantix Starting Month Box 0.5 mg (11)- 1 mg (42) tablets,dose pack See Rx Instructions PO PER PKG DIR Qty: 53 RF: 0 Chantix Continuing Month Box 1 mg tablet 1 mg PO BID Qty: 56 RF: 3 Referrals: Dexter Hagen MD [Primary Care Provider] -
[2020-12-17 07:59] VITALS: BP 125/69; PULSE 105; RESP 18; O2SAT 99
== END 2020-12-17 08:00 | disposition home or self-care (01) ==
PROVIDERS: Emergency Provider Emergency Medicine; PCP Internal Medicine
DX: L03.116 Cellulitis of left lower limb (principal)
CPT/HCPCS: 99281

== ENCOUNTER 2020-12-18 16:35 | Emergency (ER) | payer OTHER, MEDICAID, SELFPAY ==
[2020-12-18 16:56] VITALS: BP 136/77; PULSE 123; RESP 16; TEMP 36.7; O2SAT 99; BMI 28.1
== END 2020-12-18 17:25 | disposition left against medical advice (07) ==
PROVIDERS: Emergency Provider Emergency Medicine; PCP Internal Medicine
CPT/HCPCS: 99281

== ENCOUNTER → 2021-08-25 12:31 | Outpatient (CLI) | payer OTHER, MEDICAID, SELFPAY ==
[2021-08-25 14:12] LABS: Hepatitis B Surface Antigen NEGATIVE s/c (NEGATIVE)
[2021-08-25 14:29] LABS: HIV 1 & 2 Ab/Ag 4th Gen Combo NEGATIVE (NEGATIVE); Hep C Virus Ab w/Reflex Quant NEGATIVE s/c (NEGATIVE)
[2021-08-25 14:49] LABS: Urine N gonorrhoeae DETECTED
[2021-08-25 15:08] LABS: Urine Chlamydia NOT DETECTED
[2021-08-26 06:17] LABS: RPR Screen Non Reactive (Non Reactive)
[2021-08-26 18:25] LABS: HSV I/II IgM 1.36 Ratio (0.00-0.90)
== END ==
PROVIDERS: PCP Internal Medicine; Referring Provider Pediatrics; Visit Provider Pediatrics
DX: Z20.2 Contact with and (suspected) exposure to infections with a predominantly sexual mode of transmission (principal)
CPT/HCPCS: 36415; 86592; 86694; 86695; 86696; 86803; 87340; 87389; 87491; 87591

== ENCOUNTER 2021-11-30 18:11 | Emergency (ER) | payer OTHER, MEDICAID, SELFPAY ==
--- NOTE | 2021-11-30 18:32 | PC.NURSE ---
Pt came into the triage room followed by her boyfriend. I asked if I could talk about all medical information with the gentleman in the room and pt agreed. When asked why she was here she showed me a small bruise on her L upper arm. Pt's boyfriend interrupted and firmly stated that he needed to know if this bruise was from IV drug use. I stated that it not seem like that to me. I asked her if she felt safe at home and she said she did. I asked if they wanted to continue with the triage process and they declined. Pt left with the boyfriend.
== END 2021-11-30 18:30 | disposition left against medical advice (07) ==
PROVIDERS: Emergency Provider Emergency Medicine; PCP Internal Medicine

== ENCOUNTER 2022-03-12 23:12 | Emergency (ER) | payer OTHER, MEDICAID, SELFPAY ==
[2022-03-12 23:23] VITALS: BP 118/72; PULSE 96; RESP 16; TEMP 36.3; O2SAT 99; BMI 29.0
--- NOTE | 2022-03-12 23:27 | DI.RAD.S_ITS ---
PROCEDURE: XR HIP W PEL IF DONE LT 2V INDICATIONS: fall on ice TECHNIQUE: AP pelvis with lateral view of the left hip. COMPARISON: [facility], CT, CT PEL WO CON, 03/12/2022, 23:51. FINDINGS: Bones: There are mildly displaced fractures of the bilateral superior and inferior pubic rami. There are also slightly displaced fractures of the bilateral sacral ala. No hip fracture or dislocation. Soft tissues: The visualized bowel gas pattern is normal. No suspicious soft tissue calcifications. IMPRESSION: 1. Fractures of the pelvic ring as described. Recommend correlation with subsequent CT. Dictated by: Ramin Tyson M.D. on 03/13/2022 at 0:12 Approved by: Ramin Tyson M.D. on 03/13/2022 at 0:14
[2022-03-12] MEDS: HYDROCODONE/ACET 5/325 TABLET 1 TAB PO (23:35)
--- NOTE | 2022-03-12 23:45 | DI.CT.S_ITS ---
PROCEDURE: CT PEL WO CON INDICATIONS: L chuy pelvis fracture TECHNIQUE: Noncontrast 3 mm axial sections acquired through the bony pelvis, with coronal and sagittal reformatting. COMPARISON: None. FINDINGS: Image quality: Excellent. Bones: There are mildly displaced fractures of the bilateral superior and inferior pubic rami. A mildly displaced fracture of the right sacral ala is also demonstrated extending to the sacroiliac joint. There is a fracture of the medial left sacral ala as well as the left aspect of the S1 vertebral body. There is also a mildly displaced fracture of the left transverse process at L5. Soft tissues: There is a small right presacral hematoma. There are also small hematomas along the pelvic sidewalls. There is minimal intraperitoneal free fluid. Visualized musculature appears preserved. IMPRESSION: 1. Fractures of the bilateral superior and inferior pubic rami, bilateral sacrum, and left transverse process of L5. Dictated by: Ramin Tyson M.D. on 03/13/2022 at 0:49 Approved by: Ramin Tyson M.D. on 03/13/2022 at 0:54
--- NOTE | 2022-03-12 23:51 | ED_ITS ---
HPI - Fall General Chief Complaint: Fall Stated Complaint: fell in pain Time Seen by Provider: 03/12/22 23:17 Source: patient Mode of arrival: Wheelchair Limitations: no limitations History of Present Illness HPI Narrative: 36-year-old female who is here for evaluation of left greater than right however bilateral pelvic pain. She states she fell while getting out of a lifted truck and landed on her left side. She reports no other injuries from the event. Has had difficulty standing on her legs since the event. She reports no other injuries from the event. She is not on anticoagulation. [facility] because it was so difficult for her to stand. She states she did fracture her lower lumbar vertebrae when she was but that was many years ago. Related Data Previous Rx's Medication Instructions Recorded dexamethasone 2 mg tablet 2 mg PO TID #12 tabs 11/06/21 omeprazole 40 mg capsule,delayed 40 mg PO DAILY #90 caps 11/06/21 release sumatriptan succinate 100 mg 100 mg PO Q2-4H PRN Migraine 11/07/21 tablet (Imitrex) Headache #10 tabs oxycodone-acetaminophen 5 mg-325 1 tab PO Q4-6H PRN pain #20 tabs 22 mg tablet (Percocet) Allergies Allergy/AdvReac Type Severity Reaction Status Date / Time NSAIDS (Non-Steroidal Allergy Severe Swelling Verified 08/31/21 11:35 Anti-Inflamma all over and my whole body turned beet red Review of Systems Constitutional Constitutional: Reports system reviewed and no additional complaints, except as documented Musculoskeletal Musculoskeletal: Reports system reviewed and no additional complaints, except as documented Integumentary/Breasts Skin/Breast: Reports system reviewed and no additional complaints, except as documented Neurologic Neurologic: Reports system reviewed and no additional complaints, except as documented Patient History Medical History Carpal tunnel syndrome on both sides (~2019) Cervical radiculopathy Cervical somatic dysfunction Chronic back pain (~2005) Depression with anxiety Frequent headaches GERD (gastroesophageal reflux disease) (~1997) Hand pain History of migraine headaches PTSD (post-traumatic stress disorder) (~2009) Restless leg syndrome (~2009) Rheumatoid arthritis (~2013) Right wrist pain Shoulder pain (~2009) Thoracic region somatic dysfunction Surgical History Anesthesia Fallopian tube disorder (~2017) Family History Mother Age: 67 Hypertension Father History of heart disease Hyperlipidemia Hypertension Grandfather Stroke Grandmother Stroke Grandfather History of heart disease Grandmother History of heart disease Social History Smoking Status: Current every day smoker Tobacco: How many years used: 15 quit status: not considering quitting second hand exposure: No alcohol intake: former substance use type: former substance user Smoking Status: Current every day smoker alcohol intake frequency: 0-2 drinks per day Substance Use Type: does not use and marijuana Exam Initial Vital Signs Initial Vital Signs: Vital Signs Temperature 97.3 F L 03/12/22 23:23 Pulse Rate 96 H 03/12/22 23:23 Respiratory Rate 16 03/12/22 23:23 Blood Pressure 118/72 03/12/22 23:23 Pulse Oximetry 99 03/12/22 23:23 Oxygen Delivery Method 03/12/22 23:23 Const General: cooperative and healthy appearing [facility] Head: normal to inspection and normocephalic Resp Effort & Inspection: normal respiratory effort Cardio Rate: regular rate GI Inspection: non-distended Back/Spine/Pelvis Sacroiliac Joints: pain elicited by compression of iliac crest maneuver Skin General: no rashes or lesions noted Neuro General: patient alert, patient awake, patient oriented x3 and moves all extremities Speech: speech normal Sensory Exam: no sensory deficits noted Extrem Other: Discomfort the left hemipelvis and lower lumbar with movement of her left hip. Psych Appearance: grossly normal and well kempt Scores GCS [place] coma scale eye opening: Spontaneous Melisa coma scale verbal response: Orientated [place] coma scale motor response: Obey commands [place] coma scale total score: 15 Course Orders Ordered: ED Orders 03/12/22 23:27 XR hip w pel if done LT 2V Stat 03/12/22 23:45 CT pelvis wo con Stat Complete Blood Count AUTO DIFF Stat 03/12/22 23:46 Basic Metabolic Panel Stat Test Serum,Qual Stat Discontinued Medications Hydrocodone Bitart/Acetaminophen (Hydrocodone/Acet 5/325 Tablet) 1 tab PO NOW ONE Stop: 03/12/22 23:30 Last Admin: 03/12/22 23:35 Dose: 1 tab Documented By: ANIYA Hydromorphone HCl (Hydromorphone 1 Mg Inj) 1 mg IV NOW ONE Stop: 03/13/22 00:20 Last Admin: 03/13/22 00:26 Dose: 1 mg Documented By: ANIYA Oxycodone/Acetaminophen (Oxycodone/Apap 5/325 Prepack) 1 bottle MISC SEEINSTR ONE Stop: 03/13/22 01:42 Vital Signs Vital signs: Vital Signs - 8 hr 03/12/22 23:23 03/13/22 00:04 03/13/22 00:30 Temperature 97.3 F L Pulse Rate 96 H 63 92 H Respiratory Rate 16 Blood Pressure 118/72 Pulse Oximetry 99 88 L 100 Oxygen Delivery Method Room Air 03/13/22 01:00 03/13/22 01:30 03/13/22 01:41 Temperature Pulse Rate 87 94 H Respiratory Rate Blood Pressure 125/59 L Pulse Oximetry 100 100 Oxygen Delivery Method 03/13/22 01:41 03/13/22 01:44 Temperature Pulse Rate 121 H 117 H Respiratory Rate 20 Blood Pressure Pulse Oximetry 100 Oxygen Delivery Method MDM - Fall Lab Data Result diagrams: 03/13/22 00:15 03/13/22 00:15 Labs: Lab Results 03/13/22 03/13/22 03/13/22 Range/Units 00:15 00:15 00:15 WBC 13.6 H (4.5-11.0) X10^3/uL RBC 4.49 (4.0-5.2) X10^6/uL Hgb 12.9 (12.0-16.0) g/dL Hct 40.2 (36-46) % MCV 89.7 (80-100) fL MCH 28.6 (26-34) PG MCHC 31.9 (30-36) % RDW 12.7 (11.6-14.8) % Plt Count 271 (150-400) X10^3/uL Neut % (Auto) 85.4 H (50-75) % Lymph % (Auto) 8.9 L (25-40) % [place] % (Auto) 4.4 (3-14) % Eos % (Auto) 0.7 L (2-4) % Baso % (Auto) 0.6 (0-2) % Neut # (Auto) 89865 H (9060-5762) /uL Lymph # (Auto) 1200 (2460-7051) /uL [place] # (Auto) 600 (0-900) /uL Eos # (Auto) 100 (0-450) /uL Baso # (Auto) 100 (0-100) /uL Sodium 135 L (137-145) mmol/L Potassium 3.6 (3.4-5.1) mmol/L Chloride 101 (98-107) mmol/L Carbon Dioxide 25 (22-32) mmol/L BUN 17 (7-17) mg/dL Creatinine 0.74 (0.52-1.04) mg/dL Estimated GFR > 60 (>60) mL/min BUN/Creatinine Ratio 23.0 H (6-22) Glucose 99 (70-100) mg/dL Calcium 8.9 (8.4-10.2) mg/dL Serum , Qual Negative (Negative) Imaging Data Extremity x-ray #1: Radiologist's Impression: [address] [id number] XRay Report Signed Patient: Kitty Noguera MR#: [id number] : 1985 Acct:[id number] Age/Sex: 36 / F Date of Service: 03/12/22 Loc: ED Accession Number: [id number] ?? Procedure: XR hip w pel if done LT 2V Ordering Provider: Wilberto Oscar D.O. PROCEDURE:? XR HIP W PEL IF DONE LT 2V ? INDICATIONS:? fall on ice ? TECHNIQUE:? AP pelvis with lateral view of the left hip. ? COMPARISON:? [facility], CT, CT PEL WO CON, 03/12/2022, 23:51. ? FINDINGS:? ? Bones:? There are mildly displaced fractures of the bilateral superior and inferior pubic rami.? There are also slightly displaced fractures of the bilateral sacral ala.? No hip fracture or dislocation. ? Soft tissues:? The visualized bowel gas pattern is normal.? No suspicious soft tissue calcifications.? ? ? IMPRESSION:? ? 1. Fractures of the pelvic ring as described.? Recommend correlation with subsequent CT. ? ? Dictated by: Ramin Tyson M.D. on 03/13/2022 at 0:12 ? ? Approved by: Ramin Tyson M.D. on 03/13/2022 at 0:14?? CT pelvis: Radiologist's Impression: [address] [address] [address] Scan Report Signed Patient: Kitty Noguera MR#: [id number] : 1985 Acct:[id number] Age/Sex: 36 / F Date of Service: 03/12/22 Loc: ED Accession Number: [id number] ?? Procedure: CT pelvis wo con Ordering Provider: Wilberto Oscar D.O. PROCEDURE:? CT PEL WO CON ? INDICATIONS:? L chuy pelvis fracture ? TECHNIQUE:? Noncontrast 3 mm axial sections acquired through the bony pelvis, with coronal and sagittal reformatting.? ? COMPARISON:? None. ? FINDINGS:? Image quality:? Excellent.? ? Bones:? There are mildly displaced fractures of the bilateral superior and inferior pubic rami.? A mildly displaced fracture of the right sacral ala is also demonstrated extending to the sacroiliac joint.? There is a fracture of the medial left sacral ala as well as the left aspect of the S1 vertebral body.? There is also a mildly displaced fracture of the left transverse process at L5. ? Soft tissues:? There is a small right presacral hematoma.? There are also small hematomas along the pelvic sidewalls.? There is minimal intraperitoneal free fluid.? Visualized musculature appears preserved. ? ? IMPRESSION:? ? 1. Fractures of the bilateral superior and inferior pubic rami, bilateral sacrum, and left transverse process of L5.? Dictated by: Ramin Tyson M.D. on 03/13/2022 at 0:49 ? ? Approved by: Ramin Tyson M.D. on 03/13/2022 at 0:54?? MDM Narrative Medical decision making narrative: I did discuss the fractures with Dr. Milligan who was on-call with orthopedic surgery who evaluated the CT scan. He stated that the patient can be weight- bearing as tolerated. Patient was able to stand and walk with a walker and she felt that she could go home and be able to perform her basic ADLs with a walker. Will discharge home with pain medication. We did discuss return precautions can follow-up instructions. She expressed understanding and agreement. Discharge Plan Departure Patient Disposition: Home Clinical Impression: Bilateral fracture of pubic rami Qualifiers: Encounter type: initial encounter Fracture type: closed Qualified Code(s): S32.591A - Other specified fracture of right pubis, initial encounter for closed fracture Fracture of transverse process of lumbar vertebra Qualifiers: Encounter type: initial encounter Fracture type: closed Qualified Code(s): S32. 009A - Unspecified fracture of unspecified lumbar vertebra, initial encounter for closed fracture Sacral fracture Qualifiers: Encounter type: initial encounter Fracture type: closed Fracture alignment: minimally displaced Instructions: How to Choose and Use a Walker, DI for Pelvic Fracture Activity Restrictions/Additional Instructions: You can use the walker as needed for discomfort. I recommend that you contact the Orthopedic Department at the number provided below for a follow-up. Also contact your primary doctor for follow-up. Return to the emergency department for any new or worsening symptoms Prescriptions: New oxycodone-acetaminophen [Percocet] 5-325 mg tablet 1 tab PO Q4-6H PRN (Reason: pain) Qty: 20 0RF No Action sumatriptan succinate [Imitrex] 100 mg tablet 100 mg PO Q2-4H PRN (Reason: Migraine Headache) Qty: 10 6RF Rx Instructions: Take one tablet at onset repeat in one hour if no relief. No more than 2 tabs in 24 hours dexamethasone 2 mg tablet 2 mg PO TID Qty: 12 0RF omeprazole 40 mg capsule,delayed release(DR/EC) 40 mg PO DAILY Qty: 90 3RF Referrals: Dexter Hagen MD [Primary Care Provider] - Jad Milligan MD [Physician] -
[2022-03-13 00:04] VITALS: PULSE 63; O2SAT 88
[2022-03-13] MEDS: HYDROMORPHONE 1 MG INJ IV (00:26)
[2022-03-13 00:29] LABS: Add Manual Diff / Slide Review NO; Basophils Absolute Auto 100 /uL (0-100); Basophils Percent Auto 0.6 % (0-2); Eosinophils Absolute Auto 100 /uL (0-450); Eosinophils Percent Auto 0.7 % (2-4); Hematocrit 40.2 % (36-46); Hemoglobin 12.9 g/dL (12.0-16.0); Lymphocytes Absolute Auto 1200 /uL (1100-4500); Lymphocytes Percent Auto 8.9 % (25-40); Mean Corpuscular HGB Conc 31.9 % (30-36); Mean Corpuscular Hemoglobin 28.6 PG (26-34); Mean Corpuscular Volume 89.7 fL (80-100); Monocytes Absolute Auto 600 /uL (0-900); Monocytes Percent Auto 4.4 % (3-14); Neutrophils Absolute Auto 11600 /uL (1500-7000); Neutrophils Percent Auto 85.4 % (50-75); Platelet Count 271 X10^3/uL (150-400); Red Blood Cell Count 4.49 X10^6/uL (4.0-5.2); Red Cell Distribution Width 12.7 % (11.6-14.8); White Blood Cell Count 13.6 X10^3/uL (4.5-11.0)
[2022-03-13 00:30] VITALS: PULSE 92; O2SAT 100
[2022-03-13 00:36] LABS: Blood Urea Nitrogen 17 mg/dL (7-17); Calcium 8.9 mg/dL (8.4-10.2); Carbon Dioxide 25 mmol/L (22-32); Chloride 101 mmol/L (98-107); Estimated Glomerular Filt Rate > 60 mL/min (>60); Glucose 99 mg/dL (70-100); HEMOLYSIS < 15 (0-50); Potassium 3.6 mmol/L (3.4-5.1); Sodium 135 mmol/L (137-145)
[2022-03-13 00:46] LABS: Pregnancy Test Serum,Qual Negative (Negative)
[2022-03-13 01:00] VITALS: PULSE 87; O2SAT 100
[2022-03-13 01:30] VITALS: PULSE 94; O2SAT 100
[2022-03-13 01:41] VITALS: BP 125/59; PULSE 121; O2SAT 100
[2022-03-13 01:44] VITALS: PULSE 117; RESP 20
[2022-03-13] MEDS: OXYCODONE/APAP 5/325 PREPACK 1 BOTTLE MISC (01:47)
--- NOTE | 2022-03-13 18:08 | PC.NURSE ---
Will came to ED for Kitty Nogeura stating that they were unable to pickler helper pain medication as pharmacy was closed. Discussed w/ Dr. Oscar upon his arrival. He is willing to send script to another pharmacy. I called for Will from the waiting area, no reply. I called pt and her number was disconnected.
== END 2022-03-13 02:03 | disposition home or self-care (01) ==
PROVIDERS: Emergency Provider Emergency Medicine; PCP Internal Medicine
DX: S32.501A Unspecified fracture of right pubis, initial encounter for closed fracture (principal); S32.059A Unspecified fracture of fifth lumbar vertebra, initial encounter for closed fracture; S32.10XA Unspecified fracture of sacrum, initial encounter for closed fracture; V58.4XXA Person boarding or alighting a pick-up truck or van injured in noncollision transport accident, initial encounter
CPT/HCPCS: 36415; 72192; 73502; 80048; 84703; 85025; 96374; 99284; J1170

== ENCOUNTER 2022-03-17 15:51 | Emergency (ER) | payer OTHER, MEDICAID, SELFPAY ==
[2022-03-17 16:01] VITALS: BP 114/77; PULSE 84; RESP 20; TEMP 36.8; O2SAT 100; BMI 25.5
--- NOTE | 2022-03-17 16:32 | ED.RECABL ---
HPI - Recheck/Abnormal Lab/Rx <Kristel Burger PA-C - Last Filed: 03/17/22 17:19> General Chief Complaint: Recheck/Abnormal Lab/Rx Stated Complaint: medication refill needed Time Seen by Provider: 03/17/22 15:55 Source: patient Mode of arrival: Wheelchair History of Present Illness HPI narrative: Patient is unfortunate 36 years old female who fell on the left side and was evaluated in ED on March 12, 2022. She was diagnosed with Fractures of the bilateral superior and inferior pubic rami, bilateral sacrum, and left transverse process of L5. She was placed on analgesic, however ran out of medication, and was not able to see ortho yet for definitive treatment. She is here to refill her narcotic medication, she tried to take [id number] preparations without relief ( allergic to SAIDS) and tylenol is not effective . Her pain currently graded 3/10 but she took her last percocet earlier today She is off weight-bearing, using wheelchair, crutches at home . no constipation, not taking ca and vit D and a smoker of 12 cig a day for 20 yrs Onset/Timin (days ago 03/12/2022 ) Related Data Previous Rx's Medication Instructions Recorded omeprazole 40 mg capsule,delayed 40 mg PO DAILY #90 caps 11/06/21 release sumatriptan succinate 100 mg 100 mg PO Q2-4H PRN Migraine 11/07/21 tablet (Imitrex) Headache #10 tabs oxycodone-acetaminophen 5 mg-325 1 tab PO Q8H PRN pain #20 tabs 03/23/22 mg tablet (Percocet) Allergies Allergy/AdvReac Type Severity Reaction Status Date / Time NSAIDS (Non-Steroidal Allergy Severe Swelling Verified 03/17/22 16:56 Anti-Inflamma all over and my whole body turned beet red Review of Systems <Kristel Burger PA-C - Last Filed: 03/17/22 17:19> Review of Systems Narrative: GENERAL: Denies chills, fatigue, malaise, fever, sweats. Admits to pain on walking. HEENT: Denies sinus pain, ear pain, sore throat, difficulty swallowing, dizziness. RESPIRATORY: Denies dyspnea, cough, wheezing, hemoptysis, sputum. CARDIOVASCULAR: Denies chest pain, palpitations, orthopnea, edema, GASTROINTESTINAL: Denies nausea, vomiting, abdominal pain, diarrhea, constipation, melena. : Denies dysuria, frequency, incontinence, hematuria, urinary retention. MUSCULOSKELETAL: Pelvic pain due to pubic rami fracture pain is graded wo meds 7/10 w percocet 3/10 SKIN: Denies rash, skin lesions, or other NEUROLOGIC: Denies weakness, headache, numbness, change in speech, confusion PSYCHIATRIC: No concerning psychosocial issues. 12 point review of systems is negative except for those stated above Patient History <Kristel Burger PA-C - Last Filed: 03/17/22 17:19> Medical History Carpal tunnel syndrome on both sides (~2019) Cervical radiculopathy Cervical somatic dysfunction Chronic back pain (~2005) Depression with anxiety Frequent headaches GERD (gastroesophageal reflux disease) (~1997) Hand pain History of migraine headaches PTSD (post-traumatic stress disorder) (~2009) Restless leg syndrome (~2009) Rheumatoid arthritis (~2013) Right wrist pain Shoulder pain (~2009) Thoracic region somatic dysfunction Surgical History Anesthesia Fallopian tube disorder (~2016) Family History Mother Age: 67 Hypertension Father History of heart disease Hyperlipidemia Hypertension Grandfather Stroke Grandmother Stroke Grandfather History of heart disease Grandmother History of heart disease Social History Smoking Status: Current every day smoker Tobacco: How many years used: 15 quit status: not considering quitting second hand exposure: No alcohol intake: former substance use type: former substance user Smoking Status: Current every day smoker alcohol intake frequency: 0-2 drinks per day Substance Use Type: marijuana Exam <Kristel Burger PA-C - Last Filed: 03/17/22 17:19> Initial Vital Signs Initial Vital Signs: Vital Signs Temperature 98.3 F 03/17/22 16:01 Pulse Rate 84 03/17/22 16:01 Respiratory Rate 20 03/17/22 16:01 Blood Pressure 114/77 03/17/22 16:01 Pulse Oximetry 100 03/17/22 16:01 Oxygen Delivery Method 03/17/22 16:01 <DO Faye Agee Last Filed: 03/24/22 16:58> Initial Vital Signs Initial Vital Signs: Vital Signs Temperature 98.3 F 03/17/22 16:01 Pulse Rate 84 03/17/22 16:01 Respiratory Rate 20 03/17/22 16:01 Blood Pressure 114/77 03/17/22 16:01 Pulse Oximetry 100 03/17/22 16:01 Oxygen Delivery Method 03/17/22 16:01 Course <Kristel Burger PA-C - Last Filed: 03/17/22 17:19> Orders Ordered: Oxycodone/Acetaminophen (Oxycodone/Acetaminophen 5/325 Tablet) 1 tab PO Q6HR PRN PRN Reason: Pain, Moderate (4-6) Discontinued Medications Oxycodone/Acetaminophen (Oxycodone/Apap 5/325 Prepack) 1 bottle MISC SEEINSTR ONE Stop: 03/17/22 18:05 Last Admin: 03/17/22 18:13 Dose: 1 bottle Documented By: NIA Vital Signs Vital signs: Vital Signs - 8 hr 03/17/22 16:01 Temperature 98.3 F Pulse Rate 84 Respiratory Rate 20 Blood Pressure 114/77 Pulse Oximetry 100 Oxygen Delivery Method Room Air <DO Faye Agee Last Filed: 03/24/22 16:58> Orders Ordered: Oxycodone/Acetaminophen (Oxycodone/Acetaminophen 5/325 Tablet) 1 tab PO Q6HR PRN PRN Reason: Pain, Moderate (4-6) Discontinued Medications Oxycodone/Acetaminophen (Oxycodone/Apap 5/325 Prepack) 1 bottle MISC SEEINSTR ONE Stop: 03/17/22 18:05 Last Admin: 03/17/22 18:13 Dose: 1 bottle Documented By: KLS Vital Signs Vital signs: Vital Signs - 8 hr 03/17/22 16:01 Temperature 98.3 F Pulse Rate 84 Respiratory Rate 20 Blood Pressure 114/77 Pulse Oximetry 100 Oxygen Delivery Method Room Air MDM - Recheck/Abnormal Lab/Rx <SHANE Villalta Last Filed: 03/17/22 17:19> MDM Narrative Medical decision making narrative: Discussed with patient her symptoms related to fracture, encouraged to continue off weight-bearing. She must continue with aggressive on analgesic management, advised to take it as directed.Needs follow w ortho ( was not contacted yet by [facility] for definitive tx Needs to pay attention to diet, ca and vit D supplement encouraged smoking cessation advised Findings and discharge diagnosis discussed with patient/family followed by verbalization of understanding Return precautions discussed with patient/family whom verbalize understanding. Discharge Plan Departure Patient Disposition: Home Clinical Impression: Fracture, pelvis closed, Pain due to fracture Instructions: DI for Acute Pain -- Adult Activity Restrictions/Additional Instructions: *You have been diagnosed with pain associated with fracture of pelvis *What to do: *Please continue to take your regular medications as directed. New medication prescriptions sent to your pharmacy: percocet bowel regimen with taking opiates: stool softeners vegetable laxative as needed *Please follow up with your primary care provider or ortho in 2-3 days, call for an appointment. Let them know you were seen in the Emergency Department and that we ask that you be seen in follow up. We will electronically transmit a record of today's note if your PCP is in our system *If you do not have a primary care provider please contact the [facility] Resource line at [phone]. They will ask some questions about your medical history and help get you set up with a doctor in the community. *Return to Emergency Department if you should have any new, worsening or concerning symptoms, such as worsening pain Prescriptions: No Action sumatriptan succinate [Imitrex] 100 mg tablet 100 mg PO Q2-4H PRN (Reason: Migraine Headache) Qty: 10 6RF Rx Instructions: Take one tablet at onset repeat in one hour if no relief. No more than 2 tabs in 24 hours oxycodone-acetaminophen [Percocet] 5-325 mg tablet 1 tab PO Q8H PRN (Reason: pain) Qty: 20 0RF omeprazole 40 mg capsule,delayed release(DR/EC) 40 mg PO DAILY Qty: 90 3RF Referrals: Dexter Hagen MD [Primary Care Provider] - Visit Report Forms: Patient Portal/API <Celina Pearce DO - Last Filed: 03/24/22 16:58> Cosign ED Attending Cosignature Attestation: I was immediately available in the department for consultation. Documentation has been reviewed.
--- NOTE | 2022-03-17 17:23 | PC.NURSE ---
1715 pt request to leave, does not want to wait for rn to complete assessment and dc instructions with papers because she needs to get to a pharmacy that is closing. vitals not repeated, pt wheeled out in wheelchair by family.
[2022-03-17] MEDS: OXYCODONE/APAP 5/325 PREPACK 1 BOTTLE MISC (18:13)
--- NOTE | 2022-03-17 18:13 | PC.NURSE ---
Pt called saying her insurance didn't cover pharmacy where prescription was sent. Discussed w/ Dr. Pearce and [facility] Jennyfer. Ordered pre pack for patient to picker and packer.
== END 2022-03-17 17:15 | disposition home or self-care (01) ==
PROVIDERS: Emergency Provider Physician Assistant Medical; PCP Internal Medicine
DX: S32.9XXG Fracture of unspecified parts of lumbosacral spine and pelvis, subsequent encounter for fracture with delayed healing (principal)
CPT/HCPCS: 99281

== ENCOUNTER 2022-03-19 18:07 | Emergency (ER) | payer OTHER, MEDICAID, SELFPAY ==
[2022-03-19 18:30] VITALS: BP 168/69; PULSE 124; RESP 16; TEMP 36.3; O2SAT 99; BMI 25.7
[2022-03-19 19:22] VITALS: BP 122/78; PULSE 98; RESP 17; O2SAT 98
--- NOTE | 2022-03-19 19:25 | ED.RECABL ---
HPI - Recheck/Abnormal Lab/Rx General Chief Complaint: Recheck/Abnormal Lab/Rx Stated Complaint: FX PELVIC /ER 03/17 NEED MEDS Time Seen by Provider: 03/19/22 18:56 Mode of arrival: Ambulatory History of Present Illness HPI narrative: 36-year-old female smoker with history of GERD and recent nonsurgical pelvic fracture returns for the 3rd time for pain control. She was initially seen a few days ago and given prescription for Percocet which she no longer has, she returned a 2nd time and was given another prescription for Percocet which was electronically transmitted to the pharmacy of her choice but she states she has been unable to fill that prescription. She is here tonight stating that she has pain with ambulation and improves with rest. She denies any new trauma. She denies any numbness, tingling or weakness. She denies any loss of control of bowel or bladder. She is otherwise well and free of complaint Related Data Previous Rx's Medication Instructions Recorded omeprazole 40 mg capsule,delayed 40 mg PO DAILY #90 caps 11/06/21 release sumatriptan succinate 100 mg 100 mg PO Q2-4H PRN Migraine 11/07/21 tablet (Imitrex) Headache #10 tabs oxycodone-acetaminophen 5 mg-325 1 tab PO Q4-6H PRN pain #20 tabs 12/20/22 mg tablet (Percocet) oxycodone-acetaminophen 5 mg-325 1 tab PO Q8H PRN pain #20 tabs 12/24/22 mg tablet (Percocet) Allergies Allergy/AdvReac Type Severity Reaction Status Date / Time NSAIDS (Non-Steroidal Allergy Severe Swelling Verified 03/17/22 16:56 Anti-Inflamma all over and my whole body turned beet red Review of Systems Review of Systems Narrative: GENERAL: Denies chills, fatigue, malaise, fever, sweats. HEENT: Denies sinus pain, ear pain, sore throat, difficulty swallowing, dizziness. RESPIRATORY: Denies dyspnea, cough, wheezing, hemoptysis, sputum. CARDIOVASCULAR: Denies chest pain, palpitations, orthopnea, edema, GASTROINTESTINAL: Denies nausea, vomiting, abdominal pain, diarrhea, constipation, melena. : Denies dysuria, frequency, incontinence, hematuria, urinary retention. MUSCULOSKELETAL: See HPI SKIN: Denies rash, skin lesions, or other NEUROLOGIC: Denies weakness, headache, numbness, change in speech, confusion, seizures, incoordination. PSYCHIATRIC: No concerning psychosocial issues. 12 point review of systems is negative except for those stated above Patient History Medical History Carpal tunnel syndrome on both sides (~2019) Cervical radiculopathy Cervical somatic dysfunction Chronic back pain (~2005) Depression with anxiety Frequent headaches GERD (gastroesophageal reflux disease) (~1997) Hand pain History of migraine headaches PTSD (post-traumatic stress disorder) (~2009) Restless leg syndrome (~2009) Rheumatoid arthritis (~2013) Right wrist pain Shoulder pain (~2009) Thoracic region somatic dysfunction Surgical History Anesthesia Fallopian tube disorder (~2016) Family History Mother Age: 67 Hypertension Father History of heart disease Hyperlipidemia Hypertension Grandfather Stroke Grandmother Stroke Grandfather History of heart disease Grandmother History of heart disease Social History Smoking Status: Current every day smoker Tobacco: How many years used: 15 quit status: not considering quitting second hand exposure: No alcohol intake: former substance use type: former substance user Smoking Status: Current every day smoker alcohol intake frequency: 0-2 drinks per day Substance Use Type: marijuana Exam Narrative Exam Narrative: GENERAL: [36] year old patient appears stated age. Well-developed patient, in mild distress. Resting in the ambulance cart HEAD: Atraumatic. Normocephalic. EYES: Pupils equal round and reactive. Extraocular motions intact. No scleral icterus. No injection or drainage. ENT: Nose without bleeding, purulent drainage. Throat without erythema, tonsillar hypertrophy or exudate. Airway patent. NECK: Trachea midline. Non tender CARDIOVASCULAR: Regular rate and rhythm without murmurs, gallops, or rubs. RESPIRATORY: Clear to auscultation. Breath sounds equal bilaterally. No wheezes, rales, or rhonchi. GASTROINTESTINAL: Abdomen soft, non-tender, nondistended. EXTREMITIES: No edema or joint tenderness. BACK: Nontender without deformity or crepitance. No flank tenderness. NEURO: AOx3. SKIN: No rash or erythema of visible areas Initial Vital Signs Initial Vital Signs: Vital Signs Temperature 97.4 F L 03/19/22 18:30 Pulse Rate 124 H 03/19/22 18:30 Respiratory Rate 16 03/19/22 18:30 Blood Pressure 168/69 H 03/19/22 18:30 Pulse Oximetry 99 03/19/22 18:30 Oxygen Delivery Method 03/19/22 18:30 Course Orders Ordered: Discontinued Medications Oxycodone/Acetaminophen (Oxycodone/Acetaminophen 5/325 Tablet) 2 tab PO NOW ONE Stop: 03/19/22 20:01 Last Admin: 03/20/22 02:09 Dose: Not Given Documented By: AP Vital Signs Vital signs: Vital Signs - 8 hr 03/19/22 18:30 03/19/22 19:22 Temperature 97.4 F L Pulse Rate 124 H 98 H Respiratory Rate 16 17 Blood Pressure 168/69 H 122/78 Pulse Oximetry 99 98 Oxygen Delivery Method Room Air Room Air MDM - Recheck/Abnormal Lab/Rx MDM Narrative Medical decision making narrative: Patient returns for 3rd visit in the past few days requesting refill on pain medications. I told her that due to our hospital and emergency department pain policy I would be unable to right another refill for prescription but encouraged her to obtain the prescription waiting for her at her pharmacy. I had ordered 2 Percocet to be given to help her through the night but she had left against medical advice before they could be given. Discharge Plan Departure Patient Disposition: Left Against Medical Advice Clinical Impression: Patient left before treatment completed Prescriptions: No Action sumatriptan succinate [Imitrex] 100 mg tablet 100 mg PO Q2-4H PRN (Reason: Migraine Headache) Qty: 10 6RF Rx Instructions: Take one tablet at onset repeat in one hour if no relief. No more than 2 tabs in 24 hours omeprazole 40 mg capsule,delayed release(DR/EC) 40 mg PO DAILY Qty: 90 3RF oxycodone-acetaminophen [Percocet] 5-325 mg tablet 1 tab PO Q4-6H PRN (Reason: pain) Qty: 20 0RF oxycodone-acetaminophen [Percocet] 5-325 mg tablet 1 tab PO Q8H PRN (Reason: pain) Qty: 20 0RF Stand Alone Forms: Against Medical Advice
== END 2022-03-19 19:40 | disposition left against medical advice (07) ==
PROVIDERS: Emergency Provider Emergency Medicine; PCP Internal Medicine
DX: Z76.0 Encounter for issue of repeat prescription (principal)
CPT/HCPCS: 93005; 99281; 99283

== ENCOUNTER 2022-11-08 08:52 | Emergency (ER) | payer OTHER, MEDICAID, SELFPAY ==
[2022-11-08 08:57] VITALS: BP 140/77; PULSE 103; RESP 15; TEMP 36.5; O2SAT 100; BMI 25.5
== END 2022-11-08 10:48 | disposition left against medical advice (07) ==
PROVIDERS: Emergency Provider Emergency Medicine

== ENCOUNTER 2022-11-08 22:17 | Emergency (ER) | payer OTHER, MEDICAID, SELFPAY ==
[2022-11-08 22:30] VITALS: BP 126/78; PULSE 100; RESP 18; TEMP 36.4; O2SAT 100; BMI 25.6
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
--- NOTE | 2022-11-08 23:19 | DI.CT.S_ITS ---
PROCEDURE: CT LE LT W CON INDICATIONS: mass (poss hematoma) L lateral thigh TECHNIQUE: After the administration of intravenous contrast, 3 mm axial sections acquired of the left femur, with coronal and sagittal reformats. COMPARISON: None. FINDINGS: Image quality: Excellent. Bones: No acute fractures or dislocation. There is deformity of the left superior and inferior pubic rami consistent with sequelae of prior fractures. No discrete bony erosions or periosteal reaction. Soft tissues: Superficial to the left hip and proximal left femur, there is a subcutaneous loculated fluid collection measuring approximately 3.2 x 3.6 cm in transverse dimension by 13.1 cm in craniocaudal dimension. Elsewhere, no discrete mass or fluid collection identified. The visualized musculature appears preserved. IMPRESSION: 1. Small loculated subcutaneous fluid collection is nonspecific. The differential includes a hematoma versus abscess. Recommend correlation clinically. Dictated by: Ramin Tyson M.D. on 11/09/2022 at 1:56 Approved by: Ramin Tyson M.D. on 11/09/2022 at 2:00
[2022-11-08 23:45] LABS: Add Manual Diff / Slide Review NO; Basophils Absolute Auto 100 /uL (0-100); Basophils Percent Auto 1.3 % (0-2); Eosinophils Absolute Auto 200 /uL (0-450); Eosinophils Percent Auto 3.4 % (2-4); Hematocrit 38.1 % (36-46); Hemoglobin 12.6 g/dL (12.0-16.0); Lymphocytes Absolute Auto 1900 /uL (1100-4500); Lymphocytes Percent Auto 28.8 % (25-40); Mean Corpuscular Hemoglobin 29.6 PG (26-34); Mean Corpuscular Volume 89.7 fL (80-100); Monocytes Absolute Auto 400 /uL (0-900); Monocytes Percent Auto 6.7 % (3-14); Neutrophils Absolute Auto 3900 /uL (1500-7000); Neutrophils Percent Auto 59.8 % (50-75); Platelet Count 262 X10^3/uL (150-400); Red Blood Cell Count 4.25 X10^6/uL (4.0-5.2); Red Cell Distribution Width 13.2 % (11.6-14.8); White Blood Cell Count 6.6 X10^3/uL (4.5-11.0)
[2022-11-08 23:59] LABS: Pregnancy Test Serum,Qual Negative (Negative)
[2022-11-09 00:01] LABS: BUN Creatinine Ratio 20.6 (6-22); Blood Urea Nitrogen 14 mg/dL (7-17); Calcium 8.5 mg/dL (8.4-10.2); Carbon Dioxide 28 mmol/L (22-32); Chloride 105 mmol/L (98-107); Estimated Glomerular Filt Rate > 60 mL/min (>60); Glucose 93 mg/dL (70-100); HEMOLYSIS < 15 (0-50); Potassium 3.8 mmol/L (3.4-5.1); Sodium 138 mmol/L (137-145)
[2022-11-09 01:35] VITALS: BP 131/71; PULSE 88; RESP 20; O2SAT 97
[2022-11-09 02:28] VITALS: BP 118/66; PULSE 92; RESP 20; O2SAT 98
== END 2022-11-09 02:28 | disposition home or self-care (01) ==
PROVIDERS: Emergency Provider Emergency Medicine
DX: S70.12XA Contusion of left thigh, initial encounter (principal)
CPT/HCPCS: 36415; 73701; 80048; 84703; 85025; 99281; 99284; Q9967

== ENCOUNTER 2023-04-24 09:30 | Emergency (ER) | payer OTHER, MEDICAID, SELFPAY ==
[2023-04-24 09:31] VITALS: BP 144/83; PULSE 114; RESP 14; TEMP 37; O2SAT 100; BMI 25.1
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
--- NOTE | 2023-04-24 09:40 | DI.US.S_ITS ---
PROCEDURE: US EXTREMITY NONVASC LOWER LT INDICATIONS: painful hematoma since 2021, had prior injury, L out thigh TECHNIQUE: Real-time scanning was performed of the LEFT LATERAL THIGH , with image documentation. COMPARISON: None. FINDINGS: No focal abnormality. IMPRESSION: Negative ultrasound. Dictated by: Indy Worley M.D. on 04/24/2023 at 10:23 Approved by: Indy Worley M.D. on 04/24/2023 at 10:24
[2023-04-24 10:54] VITALS: BP 121/64; PULSE 99; RESP 16; O2SAT 99
== END 2023-04-24 10:54 | disposition home or self-care (01) ==
PROVIDERS: Emergency Provider Emergency Medicine
DX: M79.652 Pain in left thigh (principal)
CPT/HCPCS: 76882; 99283

== ENCOUNTER 2023-09-11 09:12 | Emergency (ER) | payer OTHER, MEDICAID, SELFPAY ==
[2023-09-11 09:21] VITALS: BP 147/84; PULSE 114; RESP 19; TEMP 36.8; O2SAT 96; BMI 25.2
--- NOTE | 2023-09-11 09:29 | ED.UPPEXIN ---
HPI - Extremity Injury (Upper) General Chief Complaint: Extremity Injury, Upper Stated Complaint: Right shoulder pain Time Seen by Provider: 09/11/23 09:28 History of Present Illness HPI narrative: Patient is a 38-year-old female who presents today with right shoulder pain. She reports it has been ongoing for about 1 week after she clots through her daughter's window. It is most comfortable when her arm is extended above her head. She is able to bring it down but it does hurt. She is some numbness tingling in her fingertips. She is unable to cross her right hand to left shoulder. She denies any sort of falling. She has been taking Tylenol for pain only she has anaphylaxis to all NSAIDs. Related Data Previous Rx's Medication Instructions Recorded omeprazole 40 mg capsule,delayed 40 mg PO DAILY #90 caps 11/12/22 release oxycodone-acetaminophen 5 mg-325 1 tab PO Q8H PRN pain #20 tabs 11/12/22 mg tablet (Percocet) sumatriptan succinate 100 mg 100 mg PO Q2-4H PRN Migraine 11/12/22 tablet (Imitrex) Headache #10 tabs cephalexin 500 mg capsule 500 mg PO BID 7 days #14 caps 09/11/23 cyclobenzaprine 5 mg tablet 5 mg PO TID PRN muscle spasm #14 09/11/23 tabs Allergies Allergy/AdvReac Type Severity Reaction Status Date / Time NSAIDS (Non-Steroidal Allergy Severe Swelling Verified 09/11/23 09:20 Anti-Inflamma all over and my whole body turned beet red Patient History Medical History Rheumatoid arthritis (~2013) PTSD (post-traumatic stress disorder) (~2009) Restless leg syndrome (~2009) Shoulder pain (~2009) Chronic back pain (~2005) Hand pain Right wrist pain Carpal tunnel syndrome on both sides (~2019) Thoracic region somatic dysfunction Cervical somatic dysfunction Cervical radiculopathy GERD (gastroesophageal reflux disease) (~1997) History of migraine headaches Depression with anxiety Frequent headaches Surgical History Anesthesia Fallopian tube disorder (~2016) Family History Mother Age: 68 Hypertension Father History of heart disease Hyperlipidemia Hypertension Grandfather Stroke Grandmother Stroke Grandfather History of heart disease Grandmother History of heart disease Social History Smoking Status: Current every day smoker Tobacco: How many years used: 15 quit status: not considering quitting second hand exposure: No alcohol intake: former substance use type: former substance user Smoking Status: Current every day smoker alcohol intake frequency: holidays/special occasions only Substance Use Type: marijuana Exam Initial Vital Signs Initial Vital Signs: Vital Signs Temperature 98.2 F 09/11/23 09:21 Pulse Rate 114 H 09/11/23 09:21 Respiratory Rate 19 09/11/23 09:21 Blood Pressure 147/84 H 09/11/23 09:21 Pulse Oximetry 96 09/11/23 09:21 Oxygen Delivery Method Room Air 09/11/23 09:21 GENERAL: Well-appearing, well-nourished and in no acute distress. CARDIOVASCULAR: peripheral pulses in tact, cap refill <2 sec RESPIRATORY: No respiratory distress, speaks in full sentences without difficulty EXTREMITIES: Normal range of motion, no clubbing or edema. Neurovascularly intact Right shoulder fullness anteriorly distal radial pulse intact sensation over deltoid intact unable to put right hand the left shoulder if able to adduct and abduct, however range of motion is limited secondary to pain NEUROLOGICAL: Cranial nerves II through XII grossly intact. Normal gait and speech. SKIN: Warm, dry, no petechiae, no rashes or lesions. Course Orders Ordered: ED Orders 09/11/23 09:31 XR shoulder RT min 2V Stat Vital Signs Vital signs: Vital Signs - 8 hr 09/11/23 09:21 09/11/23 11:28 Temperature 98.2 F 97.8 F Pulse Rate 114 H 109 H Respiratory Rate 19 20 Blood Pressure 147/84 H 122/82 Pulse Oximetry 96 98 Oxygen Delivery Method Room Air Room Air MDM - Extremity Injury (Upper) Imaging Data Extremity x-ray #1: Radiologist's Impression: PROCEDURE: XR SHOULDER RT MIN 2V INDICATIONS: pain injury TECHNIQUE: 3 views of the shoulder were acquired. COMPARISON: None. FINDINGS: Bones: No fractures or dislocations. No suspicious bony lesions. Visualized ribs appear intact. Soft tissues: No suspicious soft tissue calcifications. IMPRESSION: No visualized acute fracture or dislocation. However, if clinical concern and/or pain persist, short interval imaging followup in 7-10 days is recommended, as occult injury cannot be definitively excluded. Dictated by: Carmenza Bedolla M.D. on 09/11/2023 at 10:53 MDM Narrative Medical decision making narrative: Patient 38-year-old female presents today with right shoulder pain ongoing for a week after she climbed through window. It is most comfortable in an abducted position although she is able to abduct it. There is slightly limited range of motion. X-ray is negative neurovascularly intact. Attempted adjusting slightly. No real improvement. She agrees to a muscle relaxer it is quite tight in her scaphoid. At this time recommend outpatient follow-up Discharge Plan Departure Patient Disposition: Home Clinical Impression: Acute pain of right shoulder Instructions: DI for Shoulder Pain Activity Restrictions/Additional Instructions: *You have been diagnosed with right shoulder pain *What to do: At this time no evidence of fracture, or dislocation. Increase activity as tolerated. May wear sling as needed. *Continue to take medications as directed Flexeril 5-10 mg every 8 hours for muscle spasm Tylenol 1000 mg every 6 hours for [id number] pain *Follow up with your primary care provider in 2-3 days or call [phone] *Return to ER if you should have increasing pain numbness tingling weakness [or] any new, worsening or concerning symptoms Prescriptions: New cephalexin 500 mg capsule 500 mg PO BID 7 Days Qty: 14 0RF cyclobenzaprine 5 mg tablet 5 mg PO TID PRN (Reason: muscle spasm) Qty: 14 0RF No Action oxycodone-acetaminophen [Percocet] 5-325 mg tablet 1 tab PO Q8H PRN (Reason: pain) Qty: 20 0RF sumatriptan succinate [Imitrex] 100 mg tablet 100 mg PO Q2-4H PRN (Reason: Migraine Headache) Qty: 10 6RF Rx Instructions: Take one tablet at onset repeat in one hour if no relief. No more than 2 tabs in 24 hours omeprazole 40 mg capsule,delayed release(DR/EC) 40 mg PO DAILY Qty: 90 3RF Referrals: Dexter Hagen MD [Primary Care Provider] - Stand Alone Forms: Patient Portal/API
[2023-09-11 11:28] VITALS: BP 122/82; PULSE 109; RESP 20; TEMP 36.6; O2SAT 98
== END 2023-09-11 11:29 | disposition home or self-care (01) ==
PROVIDERS: Emergency Provider Emergency Medicine; PCP Internal Medicine
DX: M25.511 Pain in right shoulder (principal)
CPT/HCPCS: 73030; 99281; 99283

== ENCOUNTER 2023-09-25 08:20 | Emergency (ER) | payer OTHER, MEDICAID, SELFPAY ==
--- NOTE | 2023-09-25 08:24 | ED_ITS ---
HPI - General Adult General Chief complaint: Extremity Injury, Upper Stated complaint: pain/burning sensation R shoulder Time Seen by Provider: 09/25/23 08:21 Source: patient Mode of arrival: Ambulatory Limitations: no limitations History of Present Illness HPI narrative: Patient is a 38-year-old female who is here for evaluation of burning and pain to the right shoulder that is now radiating down to her hand. She was seen here in the emergency department several weeks ago for similar symptoms was given symptomatic treatment. Discharge home to follow-up as an outpatient. She states that the shoulder discomfort really did not improve but it certainly did not get any worse. She has been able to maintain her daily activities at home until yesterday when she stated that she was folding some laundry. She reached to pick something up and pulled on an object and the pain worsened. Describes pain in the top of the front in the back of her shoulder. She did not fall on her shoulder that is radiating down hand. Related Data Previous Rx's Medication Instructions Recorded omeprazole 40 mg capsule,delayed 40 mg PO DAILY #90 caps 11/12/22 release oxycodone-acetaminophen 5 mg-325 1 tab PO Q8H PRN pain #20 tabs 11/12/22 mg tablet (Percocet) sumatriptan succinate 100 mg 100 mg PO Q2-4H PRN Migraine 11/12/22 tablet (Imitrex) Headache #10 tabs cyclobenzaprine 5 mg tablet 5 mg PO TID PRN muscle spasm #14 09/11/23 tabs cyclobenzaprine 10 mg tablet 10 mg PO TID PRN muscle spasm #21 09/25/23 tabs prednisone 20 mg tablet 20 mg PO DAILY 6 days #6 tabs 09/25/23 tramadol 50 mg tablet 50 mg PO Q8H PRN pain #12 tabs 09/25/23 Allergies Allergy/AdvReac Type Severity Reaction Status Date / Time NSAIDS (Non-Steroidal Allergy Severe Swelling Verified 09/25/23 08:41 Anti-Inflamma all over and my whole body turned beet red Review of Systems Constitutional Constitutional: Reports system reviewed and no additional complaints, except as documented Musculoskeletal Musculoskeletal: Reports system reviewed and no additional complaints, except as documented Integumentary/Breasts Skin/Breast: Reports system reviewed and no additional complaints, except as documented Neurologic Neurologic: Reports system reviewed and no additional complaints, except as documented Patient History Medical History Rheumatoid arthritis (~2013) PTSD (post-traumatic stress disorder) (~2009) Restless leg syndrome (~2009) Shoulder pain (~2009) Chronic back pain (~2005) Hand pain Right wrist pain Carpal tunnel syndrome on both sides (~2019) Thoracic region somatic dysfunction Cervical somatic dysfunction Cervical radiculopathy GERD (gastroesophageal reflux disease) (~1997) History of migraine headaches Depression with anxiety Frequent headaches Surgical History Anesthesia Fallopian tube disorder (~2016) Family History Mother Age: 68 Hypertension Father History of heart disease Hyperlipidemia Hypertension Grandfather Stroke Grandmother Stroke Grandfather History of heart disease Grandmother History of heart disease Social History Smoking Status: Current every day smoker Tobacco: How many years used: 15 quit status: not considering quitting second hand exposure: No alcohol intake: former substance use type: former substance user Smoking Status: Current every day smoker alcohol intake frequency: holidays/special occasions only Substance Use Type: marijuana Exam Cardio Pulses: radial pulses present on the right Skin General: no rashes or lesions noted Neuro General: patient alert and patient awake Sensory Exam: no sensory deficits noted Extrem Other: She does have what appears to be a fullness of the muscle in the superior posterior aspect of the right shoulder although she does not have much discom fort palpation in this area. She does have palpation over the scaphoid and over shoulder blade and also over the anterior portion of the shoulder. She was able to abduct her shoulder to 90? and also forward flex and also cross her arm with a almost discomfort. Course Orders Ordered: Discontinued Medications Prednisone (Prednisone 20 Mg Tablet) 20 mg PO NOW ONE Stop: 09/25/23 08:38 Tramadol HCl (Tramadol 50 Mg Tablet) 50 mg PO NOW ONE Stop: 09/25/23 08:38 Medical Decision Making MDM Narrative Medical decision making narrative: This is clearly muscular. No indication for radiologic studies. Low suspicion for fracture or dislocation. Recommend conservative treatment for now with medications. Also advised that she make contact with the primary doctor for a follow-up. She was given return precautions. She expressed understanding and agreement. Discharge Plan Departure Patient Disposition: Home Clinical Impression: Right shoulder pain Instructions: DI for Shoulder Pain Activity Restrictions/Additional Instructions: You can call [phone] to help you establish a primary doctor. Continue with the conservative measures such as heat and ice and light stretching. Use the medications that you were given here in the ER as needed and return to the emergency department for new symptoms Prescriptions: New prednisone 20 mg tablet 20 mg PO DAILY 6 Days Qty: 6 0RF Rx Instructions: start on 09/26/23 cyclobenzaprine 10 mg tablet 10 mg PO TID PRN (Reason: muscle spasm) Qty: 21 0RF tramadol 50 mg tablet 50 mg PO Q8H PRN (Reason: pain) Qty: 12 0RF No Action oxycodone-acetaminophen [Percocet] 5-325 mg tablet 1 tab PO Q8H PRN (Reason: pain) Qty: 20 0RF sumatriptan succinate [Imitrex] 100 mg tablet 100 mg PO Q2-4H PRN (Reason: Migraine Headache) Qty: 10 6RF Rx Instructions: Take one tablet at onset repeat in one hour if no relief. No more than 2 tabs in 24 hours omeprazole 40 mg capsule,delayed release(DR/EC) 40 mg PO DAILY Qty: 90 3RF cyclobenzaprine 5 mg tablet 5 mg PO TID PRN (Reason: muscle spasm) Qty: 14 0RF Referrals: Miscellaneous,Doctor, MD [Primary Care Provider] - Stand Alone Forms: Patient Portal/API
[2023-09-25 08:38] VITALS: BP 163/90; PULSE 96; RESP 16; TEMP 36.8; O2SAT 96; BMI 24.5
[2023-09-25] MEDS: predniSONE 20 MG TABLET PO (08:47)
[2023-09-25] MEDS: TRAMADOL 50 MG TABLET PO (08:47)
--- NOTE | 2023-09-25 08:48 | PC.NURSE ---
Pt states she was folding laundry when she felt a pull in her right shoulder. pt states similair episode
== END 2023-09-25 09:08 | disposition home or self-care (01) ==
PROVIDERS: Emergency Provider Emergency Medicine
DX: M25.511 Pain in right shoulder (principal)
CPT/HCPCS: 99283

== ENCOUNTER 2023-11-10 11:19 | Emergency (ER) | payer OTHER, MEDICAID, SELFPAY ==
[2023-11-10 11:22] VITALS: BP 122/66; PULSE 117; RESP 16; TEMP 36.5; O2SAT 97; BMI 24.4
--- NOTE | 2023-11-10 11:33 | PC.NURSE ---
The patient presents with on going shoulder pain after 5 months. She has been seen twice for it. First time she was given tramadol, xray, muscle relaxers. sent home. She started to feel better. Then a few weeks after that she climbed through a window to get inside of the house. Since then she has been in increased pain. today the pain feels different. She states that the pain goes up her neck and down her shoulder and and is making her nauseated. She has mild to moderate labored breathing effort and has sustained tachycardia after sitting for several minutes. Patient was placed into room 4 and ekg was ordered.
[2023-11-10 11:36] VITALS: PULSE 104; O2SAT 98
[2023-11-10 11:38] VITALS: BP 124/79; PULSE 103; O2SAT 98
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
[2023-11-10 12:00] VITALS: BP 108/67; PULSE 98; O2SAT 98
--- NOTE | 2023-11-10 12:06 | ED_ITS ---
HPI - Extremity Injury (Upper) General Chief Complaint: Extremity Injury, Upper Stated Complaint: right shoulder pain Time Seen by Provider: 11/10/23 11:24 Source: patient Mode of arrival: Ambulatory History of Present Illness HPI narrative: 38-year-old female right-handed, prior right-sided carpal tunnel surgery remote, has a few weeks duration of right-sided shoulder pain, can not recall a specific fall or injury, she did try calling in the window of her daughter's room a few weeks back, did not have pain right away but wondered if she might have injured something during that event, currently not employed, no other new activities, has increasing right shoulder pain. In the past she had muscle spasm treated with cyclobenzaprine, has some shoulder scapular area discomfort in area in the upper right trapezius as well. No neck pain. No headache pain. She has no weakness to her right arm. No left arm or leg pain symptoms. Related Data Previous Rx's Medication Instructions Recorded omeprazole 40 mg capsule,delayed 40 mg PO DAILY #90 caps 11/12/22 release oxycodone-acetaminophen 5 mg-325 1 tab PO Q8H PRN pain #20 tabs 11/12/22 mg tablet (Percocet) sumatriptan succinate 100 mg 100 mg PO Q2-4H PRN Migraine 11/12/22 tablet (Imitrex) Headache #10 tabs cyclobenzaprine 5 mg tablet 5 mg PO TID PRN muscle spasm #14 09/11/23 tabs cyclobenzaprine 10 mg tablet 10 mg PO TID PRN muscle spasm #21 09/25/23 tabs tramadol 50 mg tablet 50 mg PO Q8H PRN pain #12 tabs 09/25/23 cyclobenzaprine 10 mg tablet 10 mg PO TID #20 tabs 11/10/23 Allergies Allergy/AdvReac Type Severity Reaction Status Date / Time NSAIDS (Non-Steroidal Allergy Severe Swelling Verified 09/25/23 08:41 Anti-Inflamma all over and my whole body turned beet red Review of Systems Review of Systems Narrative: per HPI Patient History Medical History Rheumatoid arthritis (~2013) PTSD (post-traumatic stress disorder) (~2009) Restless leg syndrome (~2009) Shoulder pain (~2009) Chronic back pain (~2005) Hand pain Right wrist pain Carpal tunnel syndrome on both sides (~2019) Thoracic region somatic dysfunction Cervical somatic dysfunction Cervical radiculopathy GERD (gastroesophageal reflux disease) (~1997) History of migraine headaches Depression with anxiety Frequent headaches Surgical History Anesthesia Fallopian tube disorder (~2016) Family History Mother Age: 68 Hypertension Father History of heart disease Hyperlipidemia Hypertension Grandfather Stroke Grandmother Stroke Grandfather History of heart disease Grandmother History of heart disease Social History Smoking Status: Current every day smoker Tobacco: How many years used: 15 quit status: not considering quitting second hand exposure: No alcohol intake: former substance use type: former substance user Smoking Status: Current every day smoker tobacco type: cigarettes alcohol intake frequency: holidays/special occasions only Substance Use Type: marijuana Exam Narrative Exam Narrative: GENERAL: Well-developed patient, in mild distress. HEAD: Atraumatic. Normocephalic. EYES: Pupils equal round and reactive. Extraocular motions intact. No scleral icterus. No injection or drainage. ENT: Nose without bleeding, purulent drainage. Throat without erythema, tonsillar hypertrophy or exudate. Airway patent. NECK: Trachea midline. Non tender CARDIOVASCULAR: Regular rate and rhythm without murmurs, gallops, or rubs. RESPIRATORY: Clear to auscultation. Breath sounds equal bilaterally. No wheezes, rales, or rhonchi. GASTROINTESTINAL: Abdomen soft, non-tender, nondistended. EXTREMITIES: No gross right shoulder deformity, no tenderness anterior right shoulder, right AC joint area, along clavicle, anterior lateral deltoid, no skin changes. She does have some tenderness in muscle spasm to the upper rhomboid in superior trapezius musculature. BACK: Nontender without deformity or crepitance. No flank tenderness. NEURO: AOx3. Gross nonfocal neuro exam, limited right upper extremity due to shoulder pain. But moves distal elbow wrist fingers easily SKIN: No rash or erythema of visible areas Initial Vital Signs Initial Vital Signs: Vital Signs Temperature 97.7 F 11/10/23 11:22 Pulse Rate 117 H 11/10/23 11:22 Respiratory Rate 16 11/10/23 11:22 Blood Pressure 122/66 11/10/23 11:22 Pulse Oximetry 97 11/10/23 11:22 Oxygen Delivery Method Room Air 11/10/23 11:22 Course Orders Ordered: ED Orders 11/10/23 12:26 XR shoulder RT min 2V Stat Vital Signs Vital signs: Vital Signs - 8 hr 11/10/23 12:30 11/10/23 12:30 Pulse Rate 93 H Blood Pressure 116/70 Pulse Oximetry 100 [facility] - Extremity Injury (Upper) Imaging Data Extremity x-ray #1: My Impression: X-ray review right shoulder, no obvious fracture or dislocation, no lytic lesions, no AC separation. ED wet read [facility] Narrative Medical decision making narrative: Right shoulder pain for weeks duration, recently increased, no specific activity, possibly worsened after she tried to climb into a window 3 or 4 weeks ago, no gross deformity, tenderness upper rhomboid and superior trapezius, none along anterior shoulder, clavicle, AC joint. X-ray unremarkable. Unclear if spasm is primarily the cause of her shoulder pain, or if she has underlying problem with secondary spasm. Follow up local orthopedic surgeon suggested. Trial of cyclobenzaprine, she has taken this in the past. Also advised to take [id number] Tylenol and or Motrin as needed for pain discomfort. Stable for discharge Discharge Plan Departure Patient Disposition: Home Clinical Impression: Right shoulder pain, Rhomboid muscle strain, Strain of right trapezius muscle Activity Restrictions/Additional Instructions: Ongoing right shoulder pain, more recently increased, no specific fall or injury, reported increased pain after trying to crawl into a window. No tenderness to anterior shoulder, along clavicle, along acromioclavicular joint. Some muscle spasm and tenderness to the upper rhomboid musculature around the scapula shoulder blade. Some muscle spasm and tenderness the superior trapezius muscle. It is unclear if those muscle spasms are the cause primarily of your shoulder pain, or if they are in secondary spasm to some other process within the shoulder. Trial of muscle relaxant, you have taken cyclobenzaprine before, prescription sent to your pharmacy. Consider use of Tylenol and or Motrin pain medication. Consider orthopedic follow up, as you might need more advanced imaging such as MRI or other studies, or might benefit from physical therapy referral. Contact information given for local orthopedic surgeon on-call Dr. Cosme. Return to this/nearest emergency department for any change worsening symptoms or any concerns prior Prescriptions: New cyclobenzaprine 10 mg tablet 10 mg PO TID Qty: 20 0RF No Action oxycodone-acetaminophen [Percocet] 5-325 mg tablet 1 tab PO Q8H PRN (Reason: pain) Qty: 20 0RF sumatriptan succinate [Imitrex] 100 mg tablet 100 mg PO Q2-4H PRN (Reason: Migraine Headache) Qty: 10 6RF Rx Instructions: Take one tablet at onset repeat in one hour if no relief. No more than 2 tabs in 24 hours omeprazole 40 mg capsule,delayed release(DR/EC) 40 mg PO DAILY Qty: 90 3RF cyclobenzaprine 5 mg tablet 5 mg PO TID PRN (Reason: muscle spasm) Qty: 14 0RF cyclobenzaprine 10 mg tablet 10 mg PO TID PRN (Reason: muscle spasm) Qty: 21 0RF tramadol 50 mg tablet 50 mg PO Q8H PRN (Reason: pain) Qty: 12 0RF Referrals: Miscellaneous,Doctor, [Primary Care Provider] - Joselin Cosme MD [Physician] - Stand Alone Forms: Patient Portal/API
--- NOTE | 2023-11-10 12:26 | DI.RAD.S_ITS ---
PROCEDURE: XR SHOULDER RT MIN 2V INDICATIONS: right shoulder pain/injury TECHNIQUE: 4 views of the shoulder were acquired. COMPARISON: [facility], [place], XR SHOULDER RT MIN 2V, 09/11/2023, 9:37. FINDINGS: Bones: No fractures or dislocations. No suspicious bony lesions. Visualized ribs appear intact. Soft tissues: No suspicious soft tissue calcifications. IMPRESSION: No acute bony abnormality. Approved by: Jose Umana M.D. on 11/10/2023 at 12:15
[2023-11-10 12:30] VITALS: BP 116/70; PULSE 93; O2SAT 100
== END 2023-11-10 13:10 | disposition home or self-care (01) ==
PROVIDERS: Emergency Provider Emergency Medicine
DX: S29.012A Strain of muscle and tendon of back wall of thorax, initial encounter (principal); S46.811A Strain of other muscles, fascia and tendons at shoulder and upper arm level, right arm, initial encounter; M25.511 Pain in right shoulder
CPT/HCPCS: 73030; 99283

== ENCOUNTER 2023-11-25 02:58 | Emergency (ER) | payer OTHER, MEDICAID, SELFPAY ==
[2023-11-25 03:06] VITALS: BP 136/80; PULSE 105; RESP 16; TEMP 36.3; O2SAT 99; BMI 24.3
--- NOTE | 2023-11-25 03:08 | ED.SKABFB ---
HPI - Skin/Abscess/Foreign Bdy General Chief complaint: Skin/Abscess/Foreign Body Stated complaint: possible staph infection in rt leg Time Seen by Provider: 11/25/23 02:58 History of Present Illness HPI narrative: 38-year-old female presents for evaluation of possible skin infection. Patient states that over the last day she was noticed several spots popping up along her left leg and on her buttocks. She was concerned that this could be a staph infection and wanted to be evaluated for this complaint. Also reports 1 day of swelling to inner R knee. States that she walks a lot but no pain associated with walking. Denies use of OCPs, recent travel, recent surgeries. Related Data Previous Rx's Medication Instructions Recorded omeprazole 40 mg capsule,delayed 40 mg PO DAILY #90 caps 11/12/22 release oxycodone-acetaminophen 5 mg-325 1 tab PO Q8H PRN pain #20 tabs 11/12/22 mg tablet (Percocet) sumatriptan succinate 100 mg 100 mg PO Q2-4H PRN Migraine 11/12/22 tablet (Imitrex) Headache #10 tabs cyclobenzaprine 5 mg tablet 5 mg PO TID PRN muscle spasm #14 09/11/23 tabs cyclobenzaprine 10 mg tablet 10 mg PO TID PRN muscle spasm #21 09/25/23 tabs tramadol 50 mg tablet 50 mg PO Q8H PRN pain #12 tabs 09/25/23 cyclobenzaprine 10 mg tablet 10 mg PO TID #20 tabs 11/10/23 cephalexin 500 mg capsule 500 mg PO QID #20 caps 11/25/23 Allergies Allergy/AdvReac Type Severity Reaction Status Date / Time NSAIDS (Non-Steroidal Allergy Severe Swelling Verified 09/25/23 08:41 Anti-Inflamma all over and my whole body turned beet red Patient History Medical History Rheumatoid arthritis (~2013) PTSD (post-traumatic stress disorder) (~2009) Restless leg syndrome (~2009) Shoulder pain (~2009) Chronic back pain (~2005) Hand pain Right wrist pain Carpal tunnel syndrome on both sides (~2019) Thoracic region somatic dysfunction Cervical somatic dysfunction Cervical radiculopathy GERD (gastroesophageal reflux disease) (~1997) History of migraine headaches Depression with anxiety Frequent headaches Surgical History Anesthesia Fallopian tube disorder (~2017) Family History Mother Age: 68 Hypertension Father History of heart disease Hyperlipidemia Hypertension Grandfather Stroke Grandmother Stroke Grandfather History of heart disease Grandmother History of heart disease Social History Smoking Status: Current every day smoker Tobacco: How many years used: 15 quit status: not considering quitting second hand exposure: No alcohol intake: former substance use type: former substance user Smoking Status: Current every day smoker tobacco type: cigarettes alcohol intake frequency: holidays/special occasions only Substance Use Type: marijuana Exam Initial Vital Signs Initial Vital Signs: Vital Signs Temperature 97.3 F L 11/25/23 03:06 Pulse Rate 105 H 11/25/23 03:06 Respiratory Rate 16 11/25/23 03:06 Blood Pressure 136/80 11/25/23 03:06 Pulse Oximetry 99 11/25/23 03:06 Oxygen Delivery Method Room Air 11/25/23 03:06 Const: Awake, alert, no acute distress, nontoxic appearing MSK: Atraumatic, full range of motion, isolated palm-sized area of pain and swelling medial R knee area Skin: Warm, Dry, intact, 4-5 areas of 2cm erythema and induration. No obvious fluctuance. Neuro: AO x3, CN II-XII grossly intact, moves all extremities Course Vital Signs Vital signs: Vital Signs - 8 hr 11/25/23 03:06 Temperature 97.3 F L Pulse Rate 105 H Respiratory Rate 16 Blood Pressure 136/80 Pulse Oximetry 99 Oxygen Delivery Method Room Air MDM - Skin/Abscess/Foreign Bdy MDM Narrative Medical decision making narrative: Patient presenting for skin evaluation and pain 2 inner R knee. Several areas of cellulitis seen on L leg and buttock without obvious drainable abscess. Patient has isolated very trace palm-sized area of swelling at medial knee joint. No risk factors for DVT, based on very localized area of symptoms this is felt to be less likely at this time. Patient reports longstanding referral to orthopedics for her knee over 10 years ago and this may be related. Patient declined imaging of knee. Antibiotics sent to pharmacy of choice. Discharge Plan Departure Patient Disposition: Home Clinical Impression: Cellulitis Instructions: DI for Cellulitis -- Adult Activity Restrictions/Additional Instructions: Wear the Hiro wrap bandage your on your knee for comfort. You may take Tylenol as needed for comfort and apply ice to areas of swelling. Finish all antibiotics as prescribed. Apply warm compresses to the area several times daily. As much as possible avoid picking at or scratching the affected areas to avoid making it worse. Prescriptions: New cephalexin 500 mg capsule 500 mg PO QID Qty: 20 0RF No Action oxycodone-acetaminophen [Percocet] 5-325 mg tablet 1 tab PO Q8H PRN (Reason: pain) Qty: 20 0RF sumatriptan succinate [Imitrex] 100 mg tablet 100 mg PO Q2-4H PRN (Reason: Migraine Headache) Qty: 10 6RF Rx Instructions: Take one tablet at onset repeat in one hour if no relief. No more than 2 tabs in 24 hours omeprazole 40 mg capsule,delayed release(DR/EC) 40 mg PO DAILY Qty: 90 3RF cyclobenzaprine 5 mg tablet 5 mg PO TID PRN (Reason: muscle spasm) Qty: 14 0RF cyclobenzaprine 10 mg tablet 10 mg PO TID PRN (Reason: muscle spasm) Qty: 21 0RF tramadol 50 mg tablet 50 mg PO Q8H PRN (Reason: pain) Qty: 12 0RF cyclobenzaprine 10 mg tablet 10 mg PO TID Qty: 20 0RF Referrals: Miscellaneous,Doctor, MD [Primary Care Provider] - Stand Alone Forms: Patient Portal/API
--- NOTE | 2023-11-25 03:14 | PC.NURSE ---
PT has multiple swollen areas on upper thigh with erythemia. painful for to touch.
== END 2023-11-25 03:19 | disposition home or self-care (01) ==
PROVIDERS: Emergency Provider Emergency Medicine
DX: L03.115 Cellulitis of right lower limb (principal)
CPT/HCPCS: 99282; 99283

== ENCOUNTER 2023-12-03 11:23 | Emergency (ER) | payer OTHER, MEDICAID, SELFPAY ==
[2023-12-03 11:25] VITALS: BP 121/69; PULSE 103; RESP 18; TEMP 36.4; O2SAT 98; BMI 25.1
--- NOTE | 2023-12-03 12:06 | DI.US.S_ITS ---
PROCEDURE: US PERIPH VENOUS LOW EXTREM RT INDICATIONS: R lower leg pain, swelling TECHNIQUE: Real-time imaging, as well as color and pulse Doppler interrogation, were performed of the lower extremity deep veins from the inguinal ligament to the popliteal fossa, with documentation of the visualized calf veins. COMPARISON: None. FINDINGS: The common femoral, femoral, popliteal, and the visualized calf veins are normally compressible, and free of intraluminal thrombus. Color and pulse Doppler demonstrate normal phasic intraluminal flow. There is normal augmentation response to distal compression maneuver. 2.5 x 1.0 x 1.8 centimeter hypoechoic lesion with internal vascularity identified in the right thigh in the region of reported pain. Mild soft tissue edema noted adjacent to the lesion. IMPRESSION: No findings of lower extremity deep venous thrombosis. 2.5 x 1.5 x 1.8 centimeter hypoechoic lesion with internal vascularity in the right thigh at the area of reported pain. Recommend MRI of the right thigh with and without contrast for definitive characterization. Dictated by: Rochelle Lauren MD, PhD on 12/03/2023 at 12:56 Approved by: Rochelle Lauren MD, PhD on 12/03/2023 at 12:58
--- NOTE | 2023-12-03 14:08 | PC.NURSE ---
RN explained to pt the need to place IV for MRI. Pt states I cant wait here any longer RN stated the MR is within the next 30 minutes, pt states I dont care, I am not waiting here any longer Pt then left room and exited emergency room. PA updated.
--- NOTE | 2023-12-03 17:38 | ED.EXTPRO ---
HPI - Extremity Problem <Nicanor Mendez PA-C - Last Filed: 12/03/23 17:53> General Chief complaint: Extremity Problem,Nontraumatic Stated complaint: right leg swelling/pain Time Seen by Provider: 12/03/23 11:41 Source: patient Mode of arrival: Ambulatory History of Present Illness HPI Narrative: 38-year-old female with past medical history shoulder pain, GERD presents to the ED with 1 day of right lower leg pain. Patient states that she was just sitting, when she felt a pop in her right leg just below her right knee, she felt like there was some fluid flowing down but inside her skin. Patient has been experiencing pain in that area since then and it is painful to walk. Patient is able to bear weight and walk. No numbness, tingling, weakness. No trauma. Patient also complains of right shoulder pain which is a chronic issue for the patient. No new trauma. Related Data Previous Rx's Medication Instructions Recorded omeprazole 40 mg capsule,delayed 40 mg PO DAILY #90 caps 11/12/22 release oxycodone-acetaminophen 5 mg-325 1 tab PO Q8H PRN pain #20 tabs 11/12/22 mg tablet (Percocet) sumatriptan succinate 100 mg 100 mg PO Q2-4H PRN Migraine 11/12/22 tablet (Imitrex) Headache #10 tabs cyclobenzaprine 5 mg tablet 5 mg PO TID PRN muscle spasm #14 09/11/23 tabs cyclobenzaprine 10 mg tablet 10 mg PO TID PRN muscle spasm #21 09/25/23 tabs tramadol 50 mg tablet 50 mg PO Q8H PRN pain #12 tabs 09/25/23 cyclobenzaprine 10 mg tablet 10 mg PO TID #20 tabs 11/10/23 cephalexin 500 mg capsule 500 mg PO QID #20 caps 11/25/23 Allergies Allergy/AdvReac Type Severity Reaction Status Date / Time NSAIDS (Non-Steroidal Allergy Severe Swelling Verified 09/25/23 08:41 Anti-Inflamma all over and my whole body turned beet red Review of Systems <Nicanor Mendez PA-C - Last Filed: 12/03/23 17:53> Constitutional Constitutional: Denies chills, Denies fatigue, Denies fever(s), Denies frequent falls, Denies lethargy and Denies weakness Eyes Eyes: Denies change in vision, Denies eye discharge, Denies irritation and Denies loss of vision ENT Ears, Nose, Mouth, and Throat: Denies change in voice, Denies dizziness, Denies neck pain, Denies sore throat and Denies throat swelling Cardiovascular Cardiovascular: Denies chest pain, Denies irregular heart rhythm, Denies lightheadedness, Denies palpitations, Denies dyspnea, Denies dyspnea on exertion and Denies orthopnea Respiratory Respiratory: Denies cough, Denies dyspnea, Denies dyspnea on exertion and Denies wheezing Gastrointestinal Gastrointestinal: Denies abdominal pain, Denies change in bowel habits, Denies diarrhea, Denies nausea and Denies vomiting Musculoskeletal Musculoskeletal: Denies neck pain and Denies numbness Comments: Right lower leg pain Integumentary/Breasts Skin/Breast: Denies pruritus, Denies erythema, Denies rash and Denies wounds Neurologic Neurologic: Denies behavioral changes, Denies confusion, Denies dizziness, Denies frequent falls, Denies loss of vision, Denies numbness and Denies weakness Psychiatric Psychiatric: Denies anxiety, Denies behavioral changes, Denies confusion, Denies depression, Denies homicidal ideation and Denies suicidal ideation Endocrine Endocrine: Denies fatigue, Denies flushing and Denies palpitations Hematologic/Lymphatic Hematologic/Lymphatic: Denies easy bruising Allergic/Immunologic Allergic/Immunologic: Denies urticaria, Denies throat swelling and Denies wheezing Patient History <Nicanor Mendez PA-C - Last Filed: 12/03/23 17:53> Medical History Rheumatoid arthritis (~2013) PTSD (post-traumatic stress disorder) (~2009) Restless leg syndrome (~2009) Shoulder pain (~2009) Chronic back pain (~2005) Hand pain Right wrist pain Carpal tunnel syndrome on both sides (~2019) Thoracic region somatic dysfunction Cervical somatic dysfunction Cervical radiculopathy GERD (gastroesophageal reflux disease) (~1997) History of migraine headaches Depression with anxiety Frequent headaches Surgical History Anesthesia Fallopian tube disorder (~2016) Family History Mother Age: 68 Hypertension Father History of heart disease Hyperlipidemia Hypertension Grandfather Stroke Grandmother Stroke Grandfather History of heart disease Grandmother History of heart disease Social History Smoking Status: Current every day smoker Tobacco: How many years used: 15 quit status: not considering quitting second hand exposure: No alcohol intake: former substance use type: former substance user Smoking Status: Current every day smoker tobacco type: cigarettes alcohol intake frequency: holidays/special occasions only Substance Use Type: marijuana Exam <Nicanor Mendez PA-C - Last Filed: 12/03/23 17:53> Narrative Exam Narrative: Const General:?cooperative, healthy appearing and comfortable HENMT Head:?normal to inspection Ears:?hearing grossly normal bilaterally Nose:?external nose normal Face and sinus:?normal facial exam and sinuses nontender Mouth:?oral mucosae normal Throat:?posterior oropharynx normal Eyes General:?appearance normal, both eyes and all related structures Neck Neck:?normal visual inspection and no lymphadenopathy noted Resp Effort & Inspection:?normal respiratory effort Auscultation:?clear to auscultation bilaterally Cardio Rate:?regular rate Rhythm:?regular rhythm' Musculoskeletal There is tenderness to palpation of the right fan at the proximal, medial aspect, just distal to the knee. Hard, palpable mass on exam. Strength and sensation is intact. Gait is normal. Neurovascularly intact. Neuro General:?patient alert, patient awake and patient oriented x3 Initial Vital Signs Initial Vital Signs: Vital Signs Temperature 97.5 F L 12/03/23 11:25 Pulse Rate 103 H 12/03/23 11:25 Respiratory Rate 18 12/03/23 11:25 Blood Pressure 121/69 12/03/23 11:25 Pulse Oximetry 98 12/03/23 11:25 Oxygen Delivery Method Room Air 12/03/23 11:25 <Wilberto Oscar DO - Last Filed: 12/03/23 18:03> Initial Vital Signs Initial Vital Signs: Vital Signs Temperature 97.5 F L 12/03/23 11:25 Pulse Rate 103 H 12/03/23 11:25 Respiratory Rate 18 12/03/23 11:25 Blood Pressure 121/69 12/03/23 11:25 Pulse Oximetry 98 12/03/23 11:25 Oxygen Delivery Method Room Air 12/03/23 11:25 Course <Nicanor Mendez PA-C - Last Filed: 12/03/23 17:53> Orders Ordered: ED Orders 12/03/23 11:33 Consult to [facility] [place] [facility] [employer] Stat 12/03/23 12:06 US periph venous low extrem rt Stat Vital Signs Vital signs: Vital Signs - 8 hr 12/03/23 11:25 Temperature 97.5 F L Pulse Rate 103 H Respiratory Rate 18 Blood Pressure 121/69 Pulse Oximetry 98 Oxygen Delivery Method Room Air <Wilberto Oscar DO - Last Filed: 12/03/23 18:03> Orders Ordered: ED Orders 12/03/23 11:33 Consult to [facility] [place] [facility] Stat 12/03/23 12:06 periph venous low extrem rt Stat Vital Signs Vital signs: Vital Signs - 8 hr 12/03/23 11:25 Temperature 97.5 F L Pulse Rate 103 H Respiratory Rate 18 Blood Pressure 121/69 Pulse Oximetry 98 Oxygen Delivery Method Room Air MDM - Extremity (Nontraumatic) <Nicanor Mendez PA-C - Last Filed: 12/03/23 17:53> MDM Narrative Medical decision making narrative: 38-year-old female with past medical history shoulder pain, GERD presents to the ED with 1 day of right lower leg pain. Concern for DVT versus musculoskeletal sprain/strain versus other. Obtained ultrasound which shows 2.5 x 1.5 x 1.8 cm hypoechoic lesion with internal vascularity in the right leg at the area of reported pain. There is mild soft tissue edema noted adjacent to the lesion. Discussed findings with patient. Ordered an MRI to further characterize the lesion. A 1/2 hour before the MRI, patient told the nurse that she can not wait and wanted to leave and proceeded to leave the ED. she was able to walk out unassisted. At this point the patient has left the ED against medical advice. Discharge Plan Departure Patient Disposition: Left Against Medical Advice Clinical Impression: Left against medical advice Prescriptions: No Action oxycodone-acetaminophen [Percocet] 5-325 mg tablet 1 tab PO Q8H PRN (Reason: pain) Qty: 20 0RF sumatriptan succinate [Imitrex] 100 mg tablet 100 mg PO Q2-4H PRN (Reason: Migraine Headache) Qty: 10 6RF Rx Instructions: Take one tablet at onset repeat in one hour if no relief. No more than 2 tabs in 24 hours omeprazole 40 mg capsule,delayed release(DR/EC) 40 mg PO DAILY Qty: 90 3RF cyclobenzaprine 5 mg tablet 5 mg PO TID PRN (Reason: muscle spasm) Qty: 14 0RF cyclobenzaprine 10 mg tablet 10 mg PO TID PRN (Reason: muscle spasm) Qty: 21 0RF tramadol 50 mg tablet 50 mg PO Q8H PRN (Reason: pain) Qty: 12 0RF cyclobenzaprine 10 mg tablet 10 mg PO TID Qty: 20 0RF cephalexin 500 mg capsule 500 mg PO QID Qty: 20 0RF Stand Alone Forms: Patient Portal/API, Against Medical Advice ED Sign-out <Wilberto Oscar, DO - Last Filed: 12/03/23 18:03> Cosign ED Attending Cosignature Attestation: Dr Oscar Co-Sign Statement: I was available for consultation during this patient's emergency department visit. This chart is signed by myself for administrative purposes only. I did not have direct contact with this patient during this visit. They were seen independently by the APC.
== END 2023-12-03 14:11 | disposition left against medical advice (07) ==
PROVIDERS: Emergency Provider Student in an Organized Health Care Education/Training Program
DX: Z53.29 Procedure and treatment not carried out because of patient's decision for other reasons (principal)
CPT/HCPCS: 93971; 99282; 99283

== ENCOUNTER 2023-12-17 09:45 | Emergency (ER) | payer OTHER, MEDICAID, SELFPAY ==
[2023-12-17] VITALS (14 sets, daily range): BP systolic 109–134; BP diastolic 56–79; PULSE 84–109; RESP 14–16; TEMP 36.7–36.8; O2SAT 96–100
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
--- NOTE | 2023-12-17 10:08 | PC.NURSE ---
Pt states her right thoracic area hurts; states when she bends over she loses her breath. Pt also states her right and left shins bother her She states it feels as though there is water running down leg. Pt able to ambulate. Oxygen 99% on RA. Hx smokes cigarettes.
--- NOTE | 2023-12-17 10:11 | DI.MRI.S_ITS ---
PROCEDURE: MR LUMBAR SPINE WO CON INDICATIONS: increased B lower extremity paresthesia, ? abscess TECHNIQUE: Noncontrast sagittal T1 spin echo and T2 fast echo, sagittal STIR, and T2 fast spin echo through the lumbar spine. In cases with scoliosis, additional coronal T2 fast spin echo may be performed. COMPARISON: None. FINDINGS: Image quality: Excellent. Alignment and Curvature: There is normal bony alignment. Bone Marrow: Marrow is of normal overall signal. No acute vertebral body compression fractures. Spinal Cord: Conus medullaris terminates at the L1 level. Visualized cord demonstrates normal signal and size. Paraspinous Soft Tissues: No paravertebral masses. T12-L1: There is disc desiccation. Mild broad-based disc bulge is seen with effacement of thecal sac anteriorly. No significant neural foraminal narrowing. L1-L2: Normal appearance. L2-L3: There is disc desiccation. Broad-based disc bulge is seen with bilateral facet arthrosis and hypertrophy of ligamentum flavum. Mild central canal stenosis and mild bilateral neural foraminal narrowing is seen. L3-L4: There is disc desiccation and disc height. Broad-based disc bulge and bilateral facet arthrosis with hypertrophy of ligamentum flavum causing moderate central canal stenosis and right worse than left bilateral neural foraminal narrowing. Bulging disc likely contacting bilateral L3 nerve roots. L4-L5: There is disc desiccation and loss of disc height. Broad-based disc bulge and bilateral facet arthrosis with hypertrophy of ligamentum flavum causing moderate central canal stenosis and bilateral neural foraminal narrowing. Bulging disc is seen contacting bilateral L4 nerve roots. L5-S1: Disc desiccation is seen. There is broad-based disc bulge and bilateral facet arthrosis causing mild central canal stenosis, moderate to severe left-sided neural foraminal narrowing and mild right-sided neural foraminal narrowing. There is likely compression of left L5 nerve root. IMPRESSION: 1. No marrow edema. No acute compression fracture or spondylolisthesis. No gross paraspinous soft tissue abnormalities. 2. [id number] degenerative disc disease in mid to lower lumbar spine causing [id number] central canal stenosis and bilateral neural foraminal narrowing as described above. Dictated by: Ryan Spencer M.D. on 12/17/2023 at 16:08 Approved by: Ryan Spencer M.D. on 12/17/2023 at 16:16
--- NOTE | 2023-12-17 10:11 | DI.MRI.S_ITS ---
PROCEDURE: MR FEMUR RT WO/W CON INDICATIONS: abnormal US on 12/02, thigh MRI recommended TECHNIQUE: Noncontrast coronal T1 spin echo and STIR, sagittal T1 spin echo with fat saturation and STIR, axial T1 spin echo and T2 fast spin echo with fat saturation. After the administration of contrast, axial/sagittal/coronal T1 spin echo with fat saturation through the right thigh. COMPARISON: [facility], US, US PERIPH VENOUS LOW EXTREM RT, 12/03/2023, 12:24. FINDINGS: Image quality: Excellent. Bones: There is no marrow edema. No fracture or dislocation. No area of abnormal intraosseous enhancement. No suspicious intraosseous lesion. No evidence of avascular necrosis of femoral head. Soft tissues: No soft tissue masses are visualized. The scanned muscles demonstrate normal overall bulk and internal signal. Subcutaneous tissues appear normal as well. No abnormal soft tissue enhancement. Included portion of pelvis shows a simple appearing right ovarian cyst measures 3.8 x 3.7 cm in size and show no contrast enhancement. No pelvic free fluid. IMPRESSION: 1. No enhancing soft tissue mass or drainable fluid collection is seen in right thigh to account for previous ultrasound findings. No right thigh muscle or tendon signal abnormality. 2. No marrow signal abnormality. No area of abnormal intraosseous enhancement. No fracture or dislocation. No evidence of avascular necrosis of femoral head. 3. 3.8 x 3.7 cm right ovarian cyst as above. Non urgent pelvic ultrasound follow-up is recommended. 4. No pelvic free fluid. No pelvic lymphadenopathy by size criteria. Dictated by: Ryan Spencer M.D. on 12/17/2023 at 16:50 Approved by: Ryan Spencer M.D. on 12/17/2023 at 16:58
[2023-12-17] MEDS: HYDROMORPHONE 0.5 MG INJ IV (10:28)
[2023-12-17 10:32] LABS: Add Manual Diff / Slide Review NO; Basophils Absolute Auto 100 /uL (0-100); Basophils Percent Auto 0.8 % (0-2); Eosinophils Absolute Auto 100 /uL (0-450); Eosinophils Percent Auto 1.7 % (2-4); Hematocrit 35.1 % (36-46); Hemoglobin 11.6 g/dL (12.0-16.0); Lymphocytes Absolute Auto 2000 /uL (1100-4500); Lymphocytes Percent Auto 27.3 % (25-40); Mean Corpuscular HGB Conc 33.1 % (30-36); Mean Corpuscular Hemoglobin 28.2 PG (26-34); Mean Corpuscular Volume 85.3 fL (80-100); Monocytes Absolute Auto 600 /uL (0-900); Monocytes Percent Auto 8.1 % (3-14); Neutrophils Absolute Auto 4600 /uL (1500-7000); Neutrophils Percent Auto 62.1 % (50-75); Platelet Count 331 X10^3/uL (150-400); Red Blood Cell Count 4.12 X10^6/uL (4.0-5.2); Red Cell Distribution Width 12.8 % (11.6-14.8); White Blood Cell Count 7.4 X10^3/uL (4.5-11.0)
[2023-12-17 10:47] LABS: Alanine Aminotransferase 12 IU/L (<35); Albumin 3.5 g/dL (3.5-5.0); Albumin Globulin Ratio 1.2 (1.0-2.8); Alkaline Phosphatase 82 U/L (38-126); Aspartate Aminotransferase 18 IU/L (14-36); BUN Creatinine Ratio 23.3 (6-22); Bilirubin Total 0.4 mg/dL (0.2-1.3); Blood Urea Nitrogen 14 mg/dL (7-17); C-Reactive Protein Quant 2.1 mg/dL (<1.0); Calcium 8.8 mg/dL (8.4-10.2); Carbon Dioxide 24 mmol/L (22-32); Chloride 106 mmol/L (98-107); Estimated Glomerular Filt Rate > 60 mL/min (>60); Globulin 2.9 g/dL (1.7-4.1); Glucose 103 mg/dL (70-100); HEMOLYSIS < 15 (0-50); Potassium 4.3 mmol/L (3.4-5.1); Sodium 137 mmol/L (137-145); Total Protein 6.4 g/dL (6.3-8.2)
[2023-12-17 10:52] LABS: Erythrocyte Sedimentation Rate 36 MM/HR (0-20)
--- NOTE | 2023-12-17 15:38 | PC.NURSE ---
Right shoulder/right back pain worse with palpation and movement. Pt states she also has an uncomfortable feeling in her lower legs that she was seen in ER recently and left AMA. Pt states her pain/discomfort have not improved.
[2023-12-17] MEDS: methylPREDNISolone 125 MG/2 ML VIAL 60 MG IV (17:26)
--- NOTE | 2023-12-17 17:47 | PC.NURSE ---
Pt reports pain w/ lying on hard MRI table but is able to lay somewhat comfortably on ER stretcher. Pt does not appear to be in significant distress. Respirations regular and unlabored. Pt updated on plan of care routinely.
[2023-12-17 18:08] LABS: Rheumatoid Factor 10.9 IU/mL (<12.0)
[2023-12-23 17:08] LABS: ANA Screen, IFA Negative (.)
== END 2023-12-17 17:49 | disposition home or self-care (01) ==
PROVIDERS: Emergency Provider Emergency Medicine
DX: M25.511 Pain in right shoulder (principal); M54.50 Low back pain, unspecified; M79.651 Pain in right thigh
CPT/HCPCS: 72148; 73720; 80053; 85025; 85651; 86038; 86140; 86430; 96374; 96375; 99284; A9579; J1170; J2919

== ENCOUNTER 2024-01-17 17:19 | Emergency (ER) | payer OTHER, MEDICAID, SELFPAY ==
[2024-01-17 17:29] VITALS: BP 135/73; PULSE 112; RESP 18; TEMP 36.9; O2SAT 98; BMI 24.4
--- NOTE | 2024-01-17 17:44 | ED.UPPEXIN ---
HPI - Extremity Injury (Upper) <Rochelle Ruffin PA-C - Last Filed: 01/17/24 18:15> General Chief Complaint: Extremity Injury, Upper Stated Complaint: muscle spasm in shoulder Time Seen by Provider: 01/17/24 17:44 Source: patient Mode of arrival: Ambulatory History of Present Illness HPI narrative: Patient is a 38-year-old female that presents to the emergency room department complaining of right shoulder girdle spasm. Patient has been seen here multiple times in the emergency room department, 09/10, 09/24, 11/09, 11/24 all of this year. Unfortunately she is missed multiple appointments with her primary care doctor here at [facility] and has been discharged. She now unfortunately is in a situation where she is then discharged, and currently now does not have a primary care doctor is in a situation where she is looking for a primary care doctor. She currently has an appointment minor standing per the patient coming up the middle of next month with a primary care doctor, she is currently waiting to receive a phone call from them to have an appointment time. However her ongoing chronic right shoulder discomfort and pain has flared up over the last 3 days. She is having extreme discomfort and spasms in the right shoulder and shoulder girdle. Which are now wrapping underneath the right armpit, into the right breast. She is having discomfort and pain with movement, deep breathing, and twisting. She does not have any shortness of breath, she does not have any chest pain, she does not have any diaphoresis, she does not have any weakness, she does not have any signs or symptoms of nausea or vomiting. She has had no recent cough, cold, runny nose or fever. Unfortunately the large amounts of Tylenol have not been relieving discomfort and pain that she is having. She states the last time she was seen here in the emergency department to her inflammatory markers were elevated, and she was told by the emergency room doctor that perhaps she has rheumatoid arthritis, unfortunately due to the fact that she is lost her primary care doctor she has not been referred to a senior quality methods specialist and does not know if she has an underlying rheumatologic disorder, whether she has fibromyalgia, MS, rheumatoid arthritis. She has no diagnosis. She has had multiple x-rays which were negative for any acute findings. She has also had recent MRIs of her lumbar spine and her femur which were not indicative of any major substantial findings. The patient states that the prednisone that she was given the last time she was here did help with the discomfort and pain. The prescription of Flexeril she was given she did not feel helped with the muscle spasms. She is willing to try something different at this visit. She has not requesting any type of pain medication, she has had narcotics in the past and did not feel that they really worked or gave her any substantial pain relief. She denies recent injury, trauma or fall. She has a safe environment. She smokes cigarettes, occasional cannabis, no substantial amount of alcohol, she has not used or attempted any [id number] topical preparations, and has not used any ice or heat. Related Data Previous Rx's Medication Instructions Recorded omeprazole 40 mg capsule,delayed 40 mg PO DAILY #90 caps 11/12/22 release oxycodone-acetaminophen 5 mg-325 1 tab PO Q8H PRN pain #20 tabs 11/12/22 mg tablet (Percocet) sumatriptan succinate 100 mg 100 mg PO Q2-4H PRN Migraine 11/12/22 tablet (Imitrex) Headache #10 tabs cyclobenzaprine 5 mg tablet 5 mg PO TID PRN muscle spasm #14 09/11/23 tabs cyclobenzaprine 10 mg tablet 10 mg PO TID PRN muscle spasm #21 09/25/23 tabs tramadol 50 mg tablet 50 mg PO Q8H PRN pain #12 tabs 09/25/23 cyclobenzaprine 10 mg tablet 10 mg PO TID #20 tabs 11/10/23 cephalexin 500 mg capsule 500 mg PO QID #20 caps 11/25/23 prednisone 20 mg tablet 40 mg (2 x 20 mg) PO DAILY #10 tabs 12/17/23 methocarbamol 750 mg tablet 750 mg PO TID #15 tabs 01/17/24 prednisone 20 mg tablet 40 mg (2 x 20 mg) PO DAILY #10 tabs 01/17/24 Allergies Allergy/AdvReac Type Severity Reaction Status Date / Time NSAIDS (Non-Steroidal Allergy Severe Swelling Verified 09/25/23 08:41 Anti-Inflamma all over and my whole body turned beet red Review of Systems <Rochelle Ruffin PA-C - Last Filed: 01/17/24 18:15> Review of Systems Narrative: Negative except as above Musculoskeletal Comments: Right shoulder girdle pain, cramping, muscle spasms with no recent injury trauma or fall. Patient History <Rochelle Ruffin PA-C - Last Filed: 01/17/24 18:15> Medical History Rheumatoid arthritis (~2013) PTSD (post-traumatic stress disorder) (~2009) Restless leg syndrome (~2009) Shoulder pain (~2009) Chronic back pain (~2005) Hand pain Right wrist pain Carpal tunnel syndrome on both sides (~2019) Thoracic region somatic dysfunction Cervical somatic dysfunction Cervical radiculopathy GERD (gastroesophageal reflux disease) (~1997) History of migraine headaches Depression with anxiety Frequent headaches Surgical History Anesthesia Fallopian tube disorder (~2016) Family History Mother Age: 69 Hypertension Father History of heart disease Hyperlipidemia Hypertension Grandfather Stroke Grandmother Stroke Grandfather History of heart disease Grandmother History of heart disease Social History Smoking Status: Current every day smoker Tobacco: How many years used: 15 quit status: not considering quitting second hand exposure: No alcohol intake: former substance use type: former substance user Smoking Status: Current every day smoker tobacco type: cigarettes alcohol intake frequency: 0-2 drinks per day Substance Use Type: marijuana Exam <Rochelle Ruffin PA-C - Last Filed: 01/17/24 18:15> Initial Vital Signs Initial Vital Signs: Vital Signs Temperature 98.5 F 01/17/24 17:29 Pulse Rate 112 H 01/17/24 17:29 Respiratory Rate 18 01/17/24 17:29 Blood Pressure 135/73 01/17/24 17:29 Pulse Oximetry 98 01/17/24 17:29 Oxygen Delivery Method Room Air 01/17/24 17:29 Reviewed Const General: cooperative, healthy appearing, comfortable, well developed, well groomed and in distress (Mild) Eyes General: Yes appearance normal, both eyes and all related structures Pupils: PERRL EOM: EOM intact bilaterally Back/Spine/Pelvis Other: No midline tenderness along the cervical or thoracic spine. Patient has right-sided trapezius muscle spasm, pinpoint tenderness over multiple areas, pain over the right shoulder girdle, wrapping into the armpit. Pain with internal external rotation, pain with flexion-extension of the arm. Cap refill is preserved. Pulses are present. No signs of infection. No obvious deformities. There was no atrophy or muscle wasting. Skin Other: Warm pink and dry Neuro Other: Cranial nerves are grossly intact, there is no impairment of the range of motion strength or movement of the right upper extremity. Currently at this time there is no neurologic impingement or signs of impingement no numbness or tingling or upper extremity weakness I do not think an MRI of the cervical spine is warranted at this point in time. I think if her primary care doctor feels that it is warranted at that point in time they can go ahead and order at once she is establish care. Extrem Other: Range of motion, strength of the lower extremities and left upper extremities intact. She is range of motion of the right upper extremities, though it does delineate and cause discomfort and pain she can move the arm under active and passive range of motion, cap refill is preserved, pulses are present. Psych Other: Appearance, mental status, speech, movement, mood, affect, attitude, thought process and content and judgment currently are intact. Unfortunately the patient has had some difficulty making her appointments which have led to her being discharged from the [facility] system and now she is having difficulty establishing care and finding a primary care doctor here in the local area. <Giorgi Stanton MD - Last Filed: 01/28/24 18:41> Initial Vital Signs Initial Vital Signs: Vital Signs Temperature 98.5 F 01/17/24 17:29 Pulse Rate 112 H 01/17/24 17:29 Respiratory Rate 18 01/17/24 17:29 Blood Pressure 135/73 01/17/24 17:29 Pulse Oximetry 98 01/17/24 17:29 Oxygen Delivery Method Room Air 01/17/24 17:29 Scores <Rochelle Ruffin PA-C - Last Filed: 01/17/24 18:15> GCS Citation: 15 Course <Rochelle Ruffin PA-C - Last Filed: 01/17/24 18:15> Orders Ordered: Discontinued Medications Methocarbamol (Methocarbamol 500 Mg Tablet) 750 mg PO NOW ONE Stop: 01/17/24 18:00 Last Admin: 01/17/24 18:20 Dose: 750 mg Documented By: RB Prednisone (Prednisone 20 Mg Tablet) 40 mg PO NOW ONE Stop: 01/17/24 18:00 Last Admin: 01/17/24 18:20 Dose: 40 mg Documented By: RB Reevaluation(s) Reevaluation #1: Patient given 750 mg of p.o. Robaxin And the patient is given 40 mg of p.o. prednisone Patient is then discharged on prescriptions were sent to her pharmacy. Vital Signs Vital signs: Vital Signs - 8 hr 01/17/24 17:29 Temperature 98.5 F Pulse Rate 112 H Respiratory Rate 18 Blood Pressure 135/73 Pulse Oximetry 98 Oxygen Delivery Method Room Air <Giorgi Stanton MD - Last Filed: 01/28/24 18:41> Orders Ordered: Discontinued Medications Methocarbamol (Methocarbamol 500 Mg Tablet) 750 mg PO NOW ONE Stop: 01/17/24 18:00 Last Admin: 01/17/24 18:20 Dose: 750 mg Documented By: RB Prednisone (Prednisone 20 Mg Tablet) 40 mg PO NOW ONE Stop: 01/17/24 18:00 Last Admin: 01/17/24 18:20 Dose: 40 mg Documented By: RB Vital Signs Vital signs: Vital Signs - 8 hr 01/17/24 17:29 Temperature 98.5 F Pulse Rate 112 H Respiratory Rate 18 Blood Pressure 135/73 Pulse Oximetry 98 Oxygen Delivery Method Room Air MDM - Extremity Injury (Upper) <Rochelle Ruffin PA-C - Last Filed: 01/17/24 18:15> MDM Narrative Medical decision making narrative: Patient has an ongoing known history of right shoulder girdle discomfort, pain, spasms. She has been seen here in the emergency room department multiple times within the last year. Unfortunately she missed 3 appointments for follow up associated with her ongoing chronic right shoulder girdle discomfort and pain. Last time she was seen here she had elevated inflammatory markers, there was concern that she might have some type of rheumatologic underlying disease, unfortunately she now does not have a primary care doctor and is struggling to establish care. She now has fallen through the cracks in his now utilizing in the emergency room department for her ongoing exacerbation of her chronic shoulder pain and chronic shoulder spasms. She states that the prednisone has helped in the past, the Flexeril that was given she did not feel helped and, and she would like to try a different muscle relaxer. No recent injury, trauma or fall. The 1800 mg of Tylenol that she is taken throughout the day as not help with the discomfort and pain, she does not want to use any type of strong pain medication, she would rather go with a muscle relaxer and the prednisone. Patient exam is negative for any type of neurologic impingement signs or symptoms. Strength is preserved, active and passive range of motion is intact, she does have any muscle wasting. Pulses are present. Strength is intact. If her primary care doctor wants to see her and evaluate her when they establish care then at that point in time they can order an outpatient cervical MRI if they feel it is warranted. Patient will receive p.o. prednisone 40 mg here in the emergency department 750 mg of p.o. Robaxin Patient will be discharged on prescription was sent to her local pharmacy I do encourage her to establish care with a primary care doctor as soon as possible, to be evaluated, so that they can place referrals to Rheumatology, and she could be further evaluated with a nerve conduction study, and if the cervical MRI needs to be ordered to evaluate for possible nerve impingement, and evaluate the musculoskeletal, as well evaluate her for possible fibromyalgia, possible MS, possible underlying rheumatoid arthritis then these can be completed so the patient can get the care that she needs and the pain relief that she needs. Trapezius Discharge Plan Departure Patient Disposition: Home Clinical Impression: Spasm of right trapezius muscle Shoulder pain Qualifiers: Chronicity: acute Laterality: right Qualified Code(s): M25.511 - Pain in right shoulder Activity Restrictions/Additional Instructions: Ice, heat, Consider hot water bottle, heating pad Prescriptions have been sent to your pharmacy Please do not use any nonsteroidals with the prednisone Please make arrangements to follow up with her primary care doctor Consider [id number] topical preparations, Aspercreme, Salonpas, lidocaine, Biofreeze, arnica, CBD preparations. Slow range of motion Prescriptions: New prednisone 20 mg tablet 40 mg PO DAILY Qty: 10 0RF methocarbamol 750 mg tablet 750 mg PO TID Qty: 15 0RF No Action oxycodone-acetaminophen [Percocet] 5-325 mg tablet 1 tab PO Q8H PRN (Reason: pain) Qty: 20 0RF sumatriptan succinate [Imitrex] 100 mg tablet 100 mg PO Q2-4H PRN (Reason: Migraine Headache) Qty: 10 6RF Rx Instructions: Take one tablet at onset repeat in one hour if no relief. No more than 2 tabs in 24 hours omeprazole 40 mg capsule,delayed release(DR/EC) 40 mg PO DAILY Qty: 90 3RF cyclobenzaprine 5 mg tablet 5 mg PO TID PRN (Reason: muscle spasm) Qty: 14 0RF cyclobenzaprine 10 mg tablet 10 mg PO TID PRN (Reason: muscle spasm) Qty: 21 0RF tramadol 50 mg tablet 50 mg PO Q8H PRN (Reason: pain) Qty: 12 0RF cyclobenzaprine 10 mg tablet 10 mg PO TID Qty: 20 0RF prednisone 20 mg tablet 40 mg PO DAILY Qty: 10 0RF cephalexin 500 mg capsule 500 mg PO QID Qty: 20 0RF Referrals: Miscellaneous,[facility] [Primary Care Provider] - Stand Alone Forms: Patient Portal/API ED Sign-out <Giorgi Stanton MD - Last Filed: 01/28/24 18:41> [facility] I was immediately available in the department for consultation. ?This documentation has been reviewed and I agree with assessment and plan. Supervised by Giorgi Stanton MD
[2024-01-17] MEDS: predniSONE 20 MG TABLET 40 MG PO (18:20)
[2024-01-17] MEDS: methocarbamoL 500 MG TABLET 750 MG PO (18:20)
[2024-01-17 18:23] VITALS: BP 127/71; PULSE 89; RESP 18; O2SAT 98
== END 2024-01-17 18:24 | disposition home or self-care (01) ==
PROVIDERS: Emergency Provider Physician Assistant
DX: M62.830 Muscle spasm of back (principal); M25.511 Pain in right shoulder
CPT/HCPCS: 99283

== ENCOUNTER 2024-02-02 09:45 | Emergency (ER) | payer OTHER, MEDICAID, SELFPAY ==
[2024-02-02 09:49] VITALS: BP 142/77; PULSE 117; O2SAT 100
[2024-02-02 09:51] VITALS: BP 142/77; PULSE 112; RESP 18; TEMP 36.4; O2SAT 100; BMI 24.3
[2024-02-02 10:00] VITALS: PULSE 107; RESP 24; O2SAT 100
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
[2024-02-02 10:18] LABS: Add Manual Diff / Slide Review NO; Basophils Absolute Auto 100 /uL (0-100); Basophils Percent Auto 0.7 % (0-2); Eosinophils Absolute Auto 100 /uL (0-450); Eosinophils Percent Auto 1.4 % (2-4); Hematocrit 34.5 % (36-46); Hemoglobin 11.2 g/dL (12.0-16.0); Lymphocytes Absolute Auto 2300 /uL (1100-4500); Lymphocytes Percent Auto 25.7 % (25-40); Mean Corpuscular HGB Conc 32.5 % (30-36); Mean Corpuscular Volume 83.1 fL (80-100); Monocytes Absolute Auto 500 /uL (0-900); Neutrophils Absolute Auto 6000 /uL (1500-7000); Neutrophils Percent Auto 66.2 % (50-75); Platelet Count 374 X10^3/uL (150-400); Red Blood Cell Count 4.15 X10^6/uL (4.0-5.2); Red Cell Distribution Width 13.6 % (11.6-14.8)
[2024-02-02 10:25] LABS: D Dimer 486 ng/ml (<500)
[2024-02-02 10:30] VITALS: PULSE 99; RESP 45; O2SAT 100
[2024-02-02 10:30] LABS: Alanine Aminotransferase 15 IU/L (<35); Albumin 3.4 g/dL (3.5-5.0); Albumin Globulin Ratio 1.1 (1.0-2.8); Alkaline Phosphatase 97 U/L (38-126); Aspartate Aminotransferase 19 IU/L (14-36); BUN Creatinine Ratio 21.8 (6-22); Bilirubin Total 0.2 mg/dL (0.2-1.3); Blood Urea Nitrogen 12 mg/dL (7-17); Calcium 8.6 mg/dL (8.4-10.2); Carbon Dioxide 25 mmol/L (22-32); Chloride 109 mmol/L (98-107); Creatine Kinase 47 U/L (30-135); Estimated Glomerular Filt Rate > 60 mL/min (>60); Globulin 3.1 g/dL (1.7-4.1); Glucose 113 mg/dL (70-100); HEMOLYSIS < 15 (0-50); Lipase 50 U/L (23-300); Potassium 3.8 mmol/L (3.4-5.1); Sodium 139 mmol/L (137-145); Total Protein 6.5 g/dL (6.3-8.2)
[2024-02-02 10:41] LABS: Troponin I < 0.012 ng/mL (0.01-0.034)
[2024-02-02 10:44] LABS: NT-proBNP (BNP-Adult 18+) 25 pg/mL (<125)
--- NOTE | 2024-02-02 10:47 | EKG_ITS ---
[place] [id number] [place] [id number] Test Date: 2024-02-02 Pat Name: Kitty Noguera Department: [facility] Room: Gender: Female Shuttle Hand: TONNY : 1985 Requested By: Order Number: [id number] Reading MD: Dexter Hagen MD Measurements Intervals [place] Rate: 98 P: 64 FL: 148 QRS: 24 QRSD: 76 T: 77 QT: 362 QTc: 462 Interpretive Statements Normal sinus rhythm Electronically Signed On 02-02-2024 13:41:06 PST by Dexter Hagen MD
[2024-02-02 11:00] VITALS: PULSE 102; RESP 30; O2SAT 100
== END 2024-02-02 11:25 | disposition home or self-care (01) ==
PROVIDERS: Emergency Provider Emergency Medicine
DX: M94.0 Chondrocostal junction syndrome [Tietze] (principal); M06.9 Rheumatoid arthritis, unspecified; R06.02 Shortness of breath; R07.81 Pleurodynia
CPT/HCPCS: 36415; 71101; 80053; 82550; 83690; 83880; 84484; 85025; 85379; 93005; 93010; 99283; 99284

== ENCOUNTER 2024-02-27 21:33 | Emergency (ER) | payer OTHER, MEDICAID, SELFPAY ==
[2024-02-27 21:36] VITALS: BP 144/85; PULSE 122; RESP 16; TEMP 36.7; O2SAT 100; BMI 25.1
--- NOTE | 2024-02-27 21:51 | ED.EXTPRO ---
HPI - Extremity Problem General Chief complaint: Extremity Problem,Nontraumatic Stated complaint: rt shoulder pain, leg pain Time Seen by Provider: 02/27/24 21:44 Source: patient Mode of arrival: Ambulatory History of Present Illness HPI Narrative: Patient was a 38-year-old female who is here for evaluation of right shoulder pain. The pain has been present for the past several months. She has been seen multiple times in the emergency department for the symptoms. Has had multiple imaging studies without specific diagnosis. She has been on steroids. States she can not take anti-inflammatories. Is taking Tylenol. She was also here complaining of bilateral leg pain. This has been going on for the past couple weeks. Is in the front of her legs. States it hurts to walk. No specific skin changes or trauma. She was not have a primary care doctor. Related Data Previous Rx's Medication Instructions Recorded omeprazole 40 mg capsule,delayed 40 mg PO DAILY #90 caps 11/12/22 release oxycodone-acetaminophen 5 mg-325 1 tab PO Q8H PRN pain #20 tabs 11/12/22 mg tablet (Percocet) sumatriptan succinate 100 mg 100 mg PO Q2-4H PRN Migraine 11/12/22 tablet (Imitrex) Headache #10 tabs cyclobenzaprine 5 mg tablet 5 mg PO TID PRN muscle spasm #14 09/11/23 tabs cyclobenzaprine 10 mg tablet 10 mg PO TID PRN muscle spasm #21 09/25/23 tabs tramadol 50 mg tablet 50 mg PO Q8H PRN pain #12 tabs 09/25/23 cyclobenzaprine 10 mg tablet 10 mg PO TID #20 tabs 11/10/23 cephalexin 500 mg capsule 500 mg PO QID #20 caps 11/25/23 prednisone 20 mg tablet 40 mg (2 x 20 mg) PO DAILY #10 tabs 12/17/23 methocarbamol 750 mg tablet 750 mg PO TID #15 tabs 01/17/24 prednisone 20 mg tablet 40 mg (2 x 20 mg) PO DAILY #10 tabs 01/17/24 hydrocodone 5 mg-acetaminophen 325 1 tab PO Q6H PRN pain #8 tabs 02/02/24 mg tablet prednisone 20 mg tablet 40 mg (2 x 20 mg) PO DAILY #10 tabs 02/02/24 Allergies Allergy/AdvReac Type Severity Reaction Status Date / Time NSAIDS (Non-Steroidal Allergy Severe Swelling Verified 02/27/24 21:45 Anti-Inflamma all over and my whole body turned beet red Review of Systems Constitutional Constitutional: Reports system reviewed and no additional complaints, except as documented Musculoskeletal Musculoskeletal: Reports system reviewed and no additional complaints, except as documented Integumentary/Breasts Skin/Breast: Reports system reviewed and no additional complaints, except as documented Neurologic Neurologic: Reports system reviewed and no additional complaints, except as documented Patient History Medical History Rheumatoid arthritis (~2013) PTSD (post-traumatic stress disorder) (~2009) Restless leg syndrome (~2009) Shoulder pain (~2009) Chronic back pain (~2005) Hand pain Right wrist pain Carpal tunnel syndrome on both sides (~2019) Thoracic region somatic dysfunction Cervical somatic dysfunction Cervical radiculopathy GERD (gastroesophageal reflux disease) (~1997) History of migraine headaches Depression with anxiety Frequent headaches Surgical History Anesthesia Fallopian tube disorder (~2016) Family History Mother Age: 69 Hypertension Father History of heart disease Hyperlipidemia Hypertension Grandfather Stroke Grandmother Stroke Grandfather History of heart disease Grandmother History of heart disease Social History Smoking Status: Current every day smoker Tobacco: How many years used: 15 quit status: not considering quitting second hand exposure: No alcohol intake: former substance use type: former substance user Smoking Status: Current every day smoker tobacco type: cigarettes alcohol intake frequency: 0-2 drinks per day Exam Initial Vital Signs Initial Vital Signs: Vital Signs Temperature 98.1 F 02/27/24 21:36 Pulse Rate 122 H 02/27/24 21:36 Respiratory Rate 16 02/27/24 21:36 Blood Pressure 144/85 H 02/27/24 21:36 Pulse Oximetry 100 02/27/24 21:36 Oxygen Delivery Method Room Air 02/27/24 21:36 Const General: cooperative and comfortable Skin General: no rashes or lesions noted Neuro Sensory Exam: no sensory deficits noted Extrem Other: Discomfort with palpation of the anterior aspects of both of her shins. Patient was have full range of motion of her right shoulder Course Vital Signs Vital signs: Vital Signs - 8 hr 02/27/24 21:36 02/27/24 21:58 Temperature 98.1 F Pulse Rate 122 H 100 H Respiratory Rate 16 20 Blood Pressure 144/85 H 114/85 Pulse Oximetry 100 100 Oxygen Delivery Method Room Air Room Air MDM - Extremity (Nontraumatic) MDM Narrative Medical decision making narrative: Patient does have tenderness to palpation both of her shins. There are no skin changes over the area concerning for cellulitis. Low suspicion for fracture. Low suspicion for DVT. She has been evaluated multiple times in the past for her right shoulder. No further workup required in the emergency department. She states she can not take anti-inflammatories. She can continue to do Tylenol. Discussed other conservative measures such as heat and ice and light stretching. She was given phone number for follow-up with orthopedic surgery although she may need a referral from a primary doctor for this. Discharge Plan Departure Patient Disposition: Home Clinical Impression: Bilateral leg pain, Chronic shoulder pain Instructions: How To Perform RICE (Rest, Ice, Compress, Elevate) Activity Restrictions/Additional Instructions: Recommend that you continue to take all of your medications as directed. Be sure that you were stretching and using ice. Continue to take Tylenol. It was important that you follow-up with a primary care doctor. Return to the emergency department for new symptoms. Prescriptions: No Action oxycodone-acetaminophen [Percocet] 5-325 mg tablet 1 tab PO Q8H PRN (Reason: pain) Qty: 20 0RF sumatriptan succinate [Imitrex] 100 mg tablet 100 mg PO Q2-4H PRN (Reason: Migraine Headache) Qty: 10 6RF Rx Instructions: Take one tablet at onset repeat in one hour if no relief. No more than 2 tabs in 24 hours omeprazole 40 mg capsule,delayed release(DR/EC) 40 mg PO DAILY Qty: 90 3RF cyclobenzaprine 5 mg tablet 5 mg PO TID PRN (Reason: muscle spasm) Qty: 14 0RF cyclobenzaprine 10 mg tablet 10 mg PO TID PRN (Reason: muscle spasm) Qty: 21 0RF tramadol 50 mg tablet 50 mg PO Q8H PRN (Reason: pain) Qty: 12 0RF cyclobenzaprine 10 mg tablet 10 mg PO TID Qty: 20 0RF prednisone 20 mg tablet 40 mg PO DAILY Qty: 10 0RF prednisone 20 mg tablet 40 mg PO DAILY Qty: 10 0RF methocarbamol 750 mg tablet 750 mg PO TID Qty: 15 0RF hydrocodone-acetaminophen 5-325 mg tablet 1 tab PO Q6H PRN (Reason: pain) Qty: 8 0RF prednisone 20 mg tablet 40 mg PO DAILY Qty: 10 0RF cephalexin 500 mg capsule 500 mg PO QID Qty: 20 0RF Referrals: Meghan Brice MD [Physician] - Stand Alone Forms: Patient Portal/API/Survey
[2024-02-27 21:58] VITALS: BP 114/85; PULSE 100; RESP 20; O2SAT 100
== END 2024-02-27 22:00 | disposition home or self-care (01) ==
LOC: ED 22:11
PROVIDERS: Emergency Provider Emergency Medicine
DX: M79.605 Pain in left leg (principal); M79.604 Pain in right leg; M25.511 Pain in right shoulder
CPT/HCPCS: 99281

== ENCOUNTER 2024-03-30 23:08 | Emergency (ER) | payer OTHER, SELFPAY ==
[2024-03-30 23:12] VITALS: BP 127/65; PULSE 125; RESP 18; TEMP 36.3; O2SAT 100; BMI 25.7
== END 2024-03-31 01:47 | disposition left against medical advice (07) ==
PROVIDERS: Emergency Provider Emergency Medicine
DX: M25.559 Pain in unspecified hip (principal)
CPT/HCPCS: 99281

== ENCOUNTER 2024-03-31 02:28 | Emergency (ER) | payer OTHER, SELFPAY ==
[2024-03-31 02:42] VITALS: BP 120/73; PULSE 126; RESP 18; TEMP 36.4; O2SAT 99; BMI 25.7
--- NOTE | 2024-03-31 04:18 | ED.UPPEXIN ---
HPI - Extremity Injury (Upper) General Chief Complaint: Extremity Injury, Upper Stated Complaint: rib and hip pain Source: patient Mode of arrival: Ambulatory History of Present Illness HPI narrative: Patient left without being seen by provider Related Data Previous Rx's Medication Instructions Recorded omeprazole 40 mg capsule,delayed 40 mg PO DAILY #90 caps 11/12/22 release oxycodone-acetaminophen 5 mg-325 1 tab PO Q8H PRN pain #20 tabs 11/12/22 mg tablet (Percocet) sumatriptan succinate 100 mg 100 mg PO Q2-4H PRN Migraine 11/12/22 tablet (Imitrex) Headache #10 tabs cyclobenzaprine 5 mg tablet 5 mg PO TID PRN muscle spasm #14 09/11/23 tabs cyclobenzaprine 10 mg tablet 10 mg PO TID PRN muscle spasm #21 09/25/23 tabs tramadol 50 mg tablet 50 mg PO Q8H PRN pain #12 tabs 09/25/23 cyclobenzaprine 10 mg tablet 10 mg PO TID #20 tabs 11/10/23 cephalexin 500 mg capsule 500 mg PO QID #20 caps 11/25/23 prednisone 20 mg tablet 40 mg (2 x 20 mg) PO DAILY #10 tabs 12/17/23 methocarbamol 750 mg tablet 750 mg PO TID #15 tabs 01/17/24 prednisone 20 mg tablet 40 mg (2 x 20 mg) PO DAILY #10 tabs 01/17/24 hydrocodone 5 mg-acetaminophen 325 1 tab PO Q6H PRN pain #8 tabs 02/02/24 mg tablet prednisone 20 mg tablet 40 mg (2 x 20 mg) PO DAILY #10 tabs 02/02/24 Allergies Allergy/AdvReac Type Severity Reaction Status Date / Time NSAIDS (Non-Steroidal Allergy Severe Swelling Verified 02/27/24 21:45 Anti-Inflamma all over and my whole body turned beet red Patient History Medical History Rheumatoid arthritis (~2013) PTSD (post-traumatic stress disorder) (~2009) Restless leg syndrome (~2009) Shoulder pain (~2009) Chronic back pain (~2005) Hand pain Right wrist pain Carpal tunnel syndrome on both sides (~2019) Thoracic region somatic dysfunction Cervical somatic dysfunction Cervical radiculopathy GERD (gastroesophageal reflux disease) (~1997) History of migraine headaches Depression with anxiety Frequent headaches Surgical History Anesthesia Fallopian tube disorder (~2016) Family History Mother Age: 69 Hypertension Father History of heart disease Hyperlipidemia Hypertension Grandfather Stroke Grandmother Stroke Grandfather History of heart disease Grandmother History of heart disease Social History Smoking Status: Current every day smoker Tobacco: How many years used: 15 quit status: not considering quitting second hand exposure: No alcohol intake: former substance use type: former substance user Smoking Status: Current every day smoker tobacco type: cigarettes alcohol intake frequency: 0-2 drinks per day Exam Initial Vital Signs Initial Vital Signs: Vital Signs Temperature 97.6 F 03/31/24 02:42 Pulse Rate 126 H 03/31/24 02:42 Respiratory Rate 18 03/31/24 02:42 Blood Pressure 120/73 03/31/24 02:42 Pulse Oximetry 99 03/31/24 02:42 Oxygen Delivery Method Room Air 03/31/24 02:42 Course Vital Signs Vital signs: Vital Signs - 8 hr 03/31/24 02:42 Temperature 97.6 F Pulse Rate 126 H Respiratory Rate 18 Blood Pressure 120/73 Pulse Oximetry 99 Oxygen Delivery Method Room Air Discharge Plan Departure Patient Disposition: Left Without Being Seen Clinical Impression: Patient left after triage Prescriptions: No Action oxycodone-acetaminophen [Percocet] 5-325 mg tablet 1 tab PO Q8H PRN (Reason: pain) Qty: 20 0RF sumatriptan succinate [Imitrex] 100 mg tablet 100 mg PO Q2-4H PRN (Reason: Migraine Headache) Qty: 10 6RF Rx Instructions: Take one tablet at onset repeat in one hour if no relief. No more than 2 tabs in 24 hours omeprazole 40 mg capsule,delayed release(DR/EC) 40 mg PO DAILY Qty: 90 3RF cyclobenzaprine 5 mg tablet 5 mg PO TID PRN (Reason: muscle spasm) Qty: 14 0RF cyclobenzaprine 10 mg tablet 10 mg PO TID PRN (Reason: muscle spasm) Qty: 21 0RF tramadol 50 mg tablet 50 mg PO Q8H PRN (Reason: pain) Qty: 12 0RF cyclobenzaprine 10 mg tablet 10 mg PO TID Qty: 20 0RF prednisone 20 mg tablet 40 mg PO DAILY Qty: 10 0RF prednisone 20 mg tablet 40 mg PO DAILY Qty: 10 0RF methocarbamol 750 mg tablet 750 mg PO TID Qty: 15 0RF hydrocodone-acetaminophen 5-325 mg tablet 1 tab PO Q6H PRN (Reason: pain) Qty: 8 0RF prednisone 20 mg tablet 40 mg PO DAILY Qty: 10 0RF cephalexin 500 mg capsule 500 mg PO QID Qty: 20 0RF Stand Alone Forms: Patient Portal/API/Survey
== END 2024-03-31 03:10 | disposition left against medical advice (07) ==
PROVIDERS: Emergency Provider Emergency Medicine
DX: M25.559 Pain in unspecified hip (principal)
CPT/HCPCS: 99281

== ENCOUNTER 2024-04-14 03:40 | Emergency (ER) | payer OTHER, SELFPAY ==
[2024-04-14 04:08] VITALS: BP 118/65; PULSE 129; RESP 20; TEMP 36.7; O2SAT 98; BMI 25.1
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
[2024-04-14] MEDS: BACLOFEN 10 MG TABLET PO (05:03)
[2024-04-14] MEDS: OXYCODONE/ACETAMINOPHEN 5/325 TABLET 1 TAB PO (05:04)
[2024-04-14 05:09] VITALS: BP 135/66; PULSE 110; RESP 19; O2SAT 98
== END 2024-04-14 05:11 | disposition home or self-care (01) ==
PROVIDERS: Emergency Provider Student in an Organized Health Care Education/Training Program
DX: G89.29 Other chronic pain (principal); R07.81 Pleurodynia; M25.551 Pain in right hip
CPT/HCPCS: 99283

== ENCOUNTER 2024-05-05 04:31 | Emergency (ER) | payer OTHER, SELFPAY ==
[2024-05-05 04:32] VITALS: BP 141/64; PULSE 122; RESP 17; TEMP 36.3; O2SAT 100; BMI 23.7
== END 2024-05-05 06:42 | disposition left against medical advice (07) ==
PROVIDERS: Emergency Provider Emergency Medicine
DX: R10.9 Unspecified abdominal pain (principal)
CPT/HCPCS: 99281

== ENCOUNTER → 2024-05-07 14:59 | Outpatient (CLI) | payer OTHER, SELFPAY ==
--- NOTE | 2024-05-07 15:02 | DI.RAD.S_ITS ---
PROCEDURE: XR TIBIA FUBULA RT 2V INDICATIONS: bilateral leg pain, soft tissue contusion TECHNIQUE: 2 views of the tibia and fibula were acquired. COMPARISON: [facility], CR, XR TIBIA FIBULA LT 2V, 05/07/2024, 15:08. FINDINGS: Bones: There is a 6.6 cm relatively well-circumscribed erosive lesion in the medial cortex of the proximal tibia. Joints: The joint spaces are normal in width and alignment without arthritic change. Soft tissues: No soft tissue abnormality. IMPRESSION: 6.6 cm erosive lesion in the medial cortex of the proximal tibia diaphysis. There is also an erosive lesion in the left tibia described on previous report. The possibility of multifocal osteolytic metastases or multiple myeloma should be entertained. Consider correlation with SPEP/UPEP and bone scan to determine uptake of these lesions and the presence of additional lesions which could indicate metastases or myeloma Dictated by: Dexter Renee M.D. on 05/08/2024 at 10:29 Approved by: Dexter Renee M.D. on 05/08/2024 at 10:33
--- NOTE | 2024-05-07 15:02 | DI.RAD.S_ITS ---
PROCEDURE: XR TIBIA FIBULA LT 2V INDICATIONS: bilateral leg pain, ganglion cyst TECHNIQUE: 2 views of the tibia and fibula were acquired. COMPARISON: None. FINDINGS: Bones: A 3.3 cm ovoid erosive lesion in the anterior mid tibial cortex appreciated Joints: The joint spaces are normal in width and alignment without arthritic change. Soft tissues: No soft tissue abnormality. IMPRESSION: 3.3 cm erosive lesion anterior tibial cortex. Suggest MRI with and without gadolinium for further evaluation Dictated by: Dexter Renee M.D. on 05/08/2024 at 10:27 Approved by: Dexter Renee M.D. on 05/08/2024 at 10:29
== END ==
PROVIDERS: PCP Family Medicine; Referring Provider Family Medicine; Visit Provider Family Medicine
DX: M79.604 Pain in right leg (principal); M79.605 Pain in left leg; M89.9 Disorder of bone, unspecified
CPT/HCPCS: 73590

== ENCOUNTER → 2024-05-14 09:06 | Outpatient (CLI) | payer OTHER, SELFPAY ==
--- NOTE | 2024-05-14 09:07 | DI.NM.S_ITS ---
PROCEDURE: NM BONE SCAN WHOLE BODY RADIOPHARMACEUTICAL: 20 mCi Tc-99m MDP IV. INDICATIONS: OSTEOCLYTIC LESION TECHNIQUE: Delayed whole-body scintigrams were obtained approximately 3-4 hours after intravenous injection of radiotracer. Anterior and posterior views were acquired from vertex to feet. Additional left and right oblique views of the tibias and fibulas were obtained. COMPARISON: [facility], CR, XR RIBS RT MIN 3V W CXR 1V, 02/02/2024, 10:02. [facility], CR, XR TIBIA FIBULA LT 2V, 05/07/2024, 15:08. [facility], CR, XR TIBIA FIBULA RT 2V, 05/07/2024, 15:11. [facility], CT, CT CHEST ABD PEL W CON, 05/14/2024, 10:58. FINDINGS: There is an expansile lesion with abnormally increased uptake seen involving the right posterior 9th rib. Additional smaller lesion can be seen involving the right anterior 4th rib. A focus of intense uptake can be seen involving the right distal lateral femur, with a broad area of increased abnormal uptake seen involving the proximal medial tibia. An additional milder focus of abnormal increased uptake can be seen involving the proximal left tibial shaft. No abnormal soft tissue uptake can be seen. The kidneys demonstrate normal positions. IMPRESSION: Abnormal foci of bone marrow uptake can be seen. Neoplasm is suspected, with metastatic disease until proven otherwise. Dictated by: Janes Peters M.D. on 05/14/2024 at 15:17 Approved by: Janes Peters M.D. on 05/14/2024 at 15:20
--- NOTE | 2024-05-14 09:08 | DI.CT.S_ITS ---
PROCEDURE: CT CHEST ABD PEL W CON INDICATIONS: OSTEOCLYTIC LESION TECHNIQUE: After the administration of intravenous contrast, 5 mm thick sections acquired from the lung apices to the symphysis. 5 mm coronal and sagittal reformats were performed, with additional 7 mm MIP reformats through the lungs. For radiation dose reduction, the following was used: automated exposure control, adjustment of mA and/or kV according to patient size. COMPARISON: None. FINDINGS: Image quality: Excellent. CHEST: Lower Neck: Enlarged supraclavicular fossa lymph nodes, largest measuring 1.1 centimeter short axis on the right (series 4, image 19). Thyroid: 1.6 centimeter left thyroid nodule. Axillae: Enlarged right axillary chain nodes, largest measuring 1.5 centimeter short axis in level 1 (series 4, image 38). Chest Wall: Medial right breast nodule measuring 0.8 centimeter (series 4, image 49). Lungs and Pleura: Right lower lobe spiculated lesion with internal cystic change measuring 2.3 x 3.2 centimeter (series 2, image 249). Moderate centrilobular and paraseptal emphysema. Small right pleural effusion. Heart: Heart size is normal. No pericardial effusion. Thoracic Vessels: The aorta and pulmonary arteries demonstrate normal size. The right middle and lower lobar pulmonary arteries are compressed. Mediastinum and Ama: Extensive mediastinal and hilar adenopathy. There is compression of the right bronchus intermedius and complete obstruction of the right middle lobe bronchus, resulting in complete atelectasis of the right middle lobe. Largest lesion measures 2.5 x 4.4 centimeters in the right hilum (series 4, image 63) and 3.4 x 4.2 centimeter in the right upper paratracheal station (series 4, image 39). Esophagus: No wall thickening. No hiatal hernia. ABDOMEN: Liver: Rim enhancing mass in segment 4 of the liver measuring 1.6 centimeter. Gallbladder: No radiopaque gallstones or wall thickening. Biliary ducts: No biliary dilation. Pancreas: No ductal dilation. Spleen: Size is within normal limits. Adrenal Glands: Bilateral adrenal metastases measuring 7.6 centimeters on the right and 6.3 centimeters on the left. Kidneys and Ureters: No hydronephrosis. No solid mass. No complex renal cystic lesion which requires follow up. Stomach and Bowel: Normal colonic caliber, without significant wall thickening. Peritoneum: No abnormal intraperitoneal fluid. No free air. Ventral Wall: No significant ventral hernia. Abdominal Nodes: No retroperitoneal or mesenteric adenopathy by size criteria. Vessels: Aorta and inferior vena cava are normal in size. PELVIS: Pelvic Organs: Unremarkable. Bladder: No bladder wall thickening, accounting for underdistention. Pelvic Nodes: No enlarged lymph nodes. Miscellaneous: No inguinal hernias are seen. Bones: Osseous metastatic disease, with associated soft tissue component. For example, the 5.4 centimeter mass in the L5 and S1 region, with invasion into the right neural foramen at this level. Additionally, there is a expansile mass within the right 9th posterior rib, soft tissue measuring 7.2 centimeter. IMPRESSION: Diffuse metastatic disease, either breast primary or lung primary, with enlarged right axillary chain nodes and a left lower lobe spiculated nodule with cavitation. The right axillary chain nodes would be amenable to ultrasound-guided biopsy for tissue sampling. Enlarged supraclavicular, mediastinal and hilar nodes. A right hilar node causes obstruction of the right middle lobe bronchus, resulting in complete atelectasis. Additionally, the right middle and lower lobar pulmonary arteries are compressed by mass effect. Bilateral adrenal metastases. Suspected liver metastasis. Osseous metastatic disease, including a soft tissue mass of the right L5/S1 bone, extending into the right neural foramen, likely affecting the nerve root. Dictated by: Jeronimo Jacob M.D. on 05/15/2024 at 14:57 Approved by: Jeronimo Jacob M.D. on 05/15/2024 at 15:07
== END ==
PROVIDERS: PCP Family Medicine; Referring Provider Family Medicine; Visit Provider Family Medicine
DX: C79.51 Secondary malignant neoplasm of bone (principal); C77.8 Secondary and unspecified malignant neoplasm of lymph nodes of multiple regions; C79.71 Secondary malignant neoplasm of right adrenal gland; C79.72 Secondary malignant neoplasm of left adrenal gland; N63.15 Unspecified lump in the right breast, overlapping quadrants; C80.1 Malignant (primary) neoplasm, unspecified; J98.11 Atelectasis; R91.8 Other nonspecific abnormal finding of lung field; K76.9 Liver disease, unspecified; M89.9 Disorder of bone, unspecified; M89.50 Osteolysis, unspecified site; J90 Pleural effusion, not elsewhere classified; J43.2 Centrilobular emphysema
CPT/HCPCS: 71260; 74177; 78306; A9503; Q9967

== ENCOUNTER 2024-06-03 14:14 | Inpatient (IN) | payer OTHER, SELFPAY ==
[2024-06-03] VITALS (32 sets, daily range): BP systolic 110–155; BP diastolic 62–103; PULSE 60–132; RESP 20–42; TEMP 35.6–37.5; O2SAT 92–98; BMI 25.9
--- NOTE | 2024-06-03 14:27 | PC.NURSE ---
Unable to get automatic BP readings. Manual pressure is 106/P.
[2024-06-03] MEDS: SODIUM CHLORIDE 0.9% 1,000 ML 1000 ML IV ×2 (14:30→14:45)
--- NOTE | 2024-06-03 14:40 | DI.CT.S_ITS ---
PROCEDURE: CT ANGIO CHEST ABDOMEN PELVIS INDICATIONS: r/o PE, hx cancer w/mets TECHNIQUE: Precontrast 5 mm thick sections acquired from the lung apices to the iliac crests. After the administration of intravenous contrast, 2.5 mm thick sections again acquired from the lung apices to the iliac crests. Maximum intensity projection (MIP) oblique sagittal and coronal reformats were then acquired. For radiation dose reduction, the following was used: automated exposure control. COMPARISON: [facility], CT, CT CHEST ABD PEL W CON, 05/14/2024, 10:58. FINDINGS: Image quality: Diagnostic. AORTA: No aortic aneurysm. No acute aortic syndrome. CHEST: Lower Neck: Enlarged lymph nodes are again seen in supraclavicular region and measures up to 12 mm in short axis diameter in right supraclavicular space on the current study series 5, image 44 compared to 1.1 cm on previous study. Thyroid: 1.6 cm left thyroid nodule is unchanged series 5, image 55. Axillae: Enlarged right axillary lymph nodes are again seen measures up to 15 mm in short axis diameter series 5, image 78 unchanged from prior study. Chest Wall: Patient's known medial right breast nodule measures 8 mm in size remains unchanged series 5, image 83. Lungs and Pleura: Small partially loculated right pleural effusion is seen. Dependent atelectasis in posterior aspect of bilateral lung enamorado are seen. Masslike consolidations are noted in posterior aspect of right lower lobe with internal cystic areas now measures up to 3.3 x 2.6 cm in size compared to 3.2 x 2.3 cm in size on previous study series 6, image 265. There is interval development of masslike consolidation in more lateral aspect of right lower lobe man measures 4 x 2.3 cm in size series 6, image 263. Hazy ground-glass opacity in posterior lateral aspect of left lingular segment is seen. Heart: Heart size is normal. Large amount of pericardial effusion is seen measures up to 5.3 cm in thickness. Thoracic Vessels: Pulmonary arteries are prominent in size. Intraluminal filling defects are noted in subsegmental branches of left lower lobe pulmonary artery best seen on series 5, image 98. There is likely tumor mass invasion of the proximal right lower lobe pulmonary artery with absence of contrast opacification of the right lower lobe pulmonary artery branches. Mediastinum and Ama: Extensive mediastinal and right hilar lymphadenopathy is again seen appears unchanged or larger in size compared to prior study although evaluation is slightly limited due to presence of large pericardial effusion. Esophagus: No wall thickening. No hiatal hernia. ABDOMEN: Liver: Previously described rim enhancing right hepatic lobe mass now measures 2 cm compared to 1.6 cm on previous study series 5, image 193. No gross new hepatic lesion is identified on the current study. Gallbladder: No radiopaque gallstones or wall thickening. Biliary ducts: No biliary dilation. Pancreas: No ductal dilation. Spleen: Size is within normal limits. Adrenal Glands: No adrenal nodules. Kidneys and Ureters: No hydronephrosis. No solid mass. No complex renal cystic lesion which requires follow up. Stomach and Bowel: Normal colonic caliber, without significant wall thickening. Peritoneum: No abnormal intraperitoneal fluid. No free air. Ventral Wall: No hernia. Abdominal Nodes: No retroperitoneal or mesenteric adenopathy by size criteria. Vessels: Inferior vena cava is normal in size. PELVIS: Pelvic Organs: Unremarkable. Bladder: Khoury catheter is seen in a decompressed urinary bladder. Pelvic Nodes: No enlarged lymph nodes. Miscellaneous: No inguinal hernias are seen. Bones: Extensive bony metastases are again seen not significantly changed in size and appearance compared to prior study most notably involving right L5-S1 region extending into right neural foramen at this level as well as right posterior 9th rib. Destructive mass involving right scapular body is also noted. No acute vertebral body compression fracture. IMPRESSION: 1. Interval development of massive pericardial effusion as above. 2. No thoracic aortic aneurysm or dissection. 3. Small pulmonary embolus in subsegmental branch of left lower lobe pulmonary artery as above. 4. Large right hilar mass/lymphadenopathy with significant mass effect on the adjacent right pulmonary artery an absence of contrast opacification at the level of proximal right lower lobe pulmonary artery. 5. Stable appearance of mediastinal lymphadenopathy. 6. Interval development of partially loculated small to moderate right pleural effusion. There are now 2 masslike consolidations in posterior and lateral aspect of right lower lobe increased in size compared to previous study. Additional area of hazy ground-glass opacity in posterior lateral aspect of lingular segment which may represent focal pneumonitis. No pneumothorax. 7. Extensive bony metastases with associated soft tissue component not significantly changed from previous study. 8. Interval slight increase in size of patient's known hepatic lesion concerning for liver metastasis. Dictated by: Ryan Spencer M.D. on 06/03/2024 at 15:33 Approved by: Ryan Spencer M.D. on 06/03/2024 at 15:52
[2024-06-03] MEDS: NOREPINEPHRINE BITARTRATE/D5W 4 MG/250 ML PLAST..BAG 29.087 MG IV (14:47)
[2024-06-03] MEDS: ROCURONIUM 50 MG/5 ML INJ IV (14:50)
[2024-06-03] MEDS: KETAMINE 500 MG/5 ML INJ 75 MG IV (14:50)
--- NOTE | 2024-06-03 15:07 | DI.ECHO.S_ITS ---
[facility] : : [id number] : : [place] : : [id number] : : Phone: [phone] Echocardiogram Report + + :Name: NICOLE SCOTT Study Date: 06/03/2024 : :Hospital ReadingLocation: Weight: 171 lb : : Gender: Female : :: 1985 Age: 39 yrs BP: 140/100 mmHg: :Reason For Study: ENLARGED HEART, CANCER, SEPSIS : :Ordering Physician: DIANA, : :TERESITA Garcia Performed By: Suellen Bowens : :Referring: TERESITA ORTIZ : + + Interpretation Summary Limited echo to evaluate for pericardial effusion. Sinus tachycardia. There is a large circumferential pericardial effusion. Before pericardiocentesis it measured 5 cm in thickness on parasternal long axis view posteriorly. After pericardiocentesis it measured 3 cm posteriorly. Procedure: A two-dimensional transthoracic echocardiogram with color flow and Doppler was performed in limited views only to assess Pericardial effusion.. The study quality was technically adequate. There is no prior echocardiogram noted for this patient. EKG artifact throughout. The heart rate ranged between 113-122 bpm during the study. Left Ventricle: Overall left ventricular systolic function is preserved. Left ventricular ejection fraction is estimated to be 60-65% post- pericardiocentesis.. Pericardium/ Pleura There is a very large pericardial effusion noted. Pre- pericardiocentesis pericardial effusion measured approximately 1.9cm to 5.4cm. Post-pericardiocentesis pericardial effusion approximately up to 0.93cm 3.4cm. There is no pleural effusion. MMode/2D Measurements & Calculations IVC diam: 1.9 cm Electronically signed by: Alexandra Landers M.D. on Reading Physician:06/03/2024 04:20 PM
[2024-06-03 15:11] LABS: INR 1.8 (0.9-1.3)
[2024-06-03 15:13] LABS: D Dimer 6916 ng/ml (<500)
[2024-06-03] MEDS: MIDAZOLAM 50 MG in DEXTROSE 5 % IN WATER 40 ML IV (15:14)
--- NOTE | 2024-06-03 15:15 | ED_ITS ---
HPI - General Adult General Chief complaint: Shortness of Breath/Dyspnea Stated complaint: pain, decrease consciousness Time Seen by Provider: 06/03/24 14:14 Source: EMS Mode of arrival: EMS History of Present Illness HPI narrative: 39-year-old woman brought in by medics with chief complaint of ?mottled all over?. No other information was available at time arrival. Related Data Previous Rx's Medication Instructions Recorded cyclobenzaprine 5 mg tablet 5 mg PO TID PRN muscle spasm #10 04/24/24 tabs prednisone 20 mg tablet 40 mg (2 x 20 mg) PO DAILY #4 tabs 04/24/24 Allergies Allergy/AdvReac Type Severity Reaction Status Date / Time NSAIDS (Non-Steroidal Allergy Severe Swelling Verified 04/24/24 16:33 Anti-Inflamma all over and my whole body turned beet red Review of Systems Review of Systems ROS Unobtainable: Unobtainable due to medical condition Patient History Medical History Rheumatoid arthritis (~2013) PTSD (post-traumatic stress disorder) (~2009) Restless leg syndrome (~2009) Shoulder pain (~2009) Chronic back pain (~2005) Hand pain Right wrist pain Carpal tunnel syndrome on both sides (~2019) Thoracic region somatic dysfunction Cervical somatic dysfunction Cervical radiculopathy GERD (gastroesophageal reflux disease) (~1997) History of migraine headaches Depression with anxiety Frequent headaches Surgical History Anesthesia Fallopian tube disorder (~2016) Family History Mother Age: 69 Hypertension Father History of heart disease Hyperlipidemia Hypertension Grandfather Stroke Grandmother Stroke Grandfather History of heart disease Grandmother History of heart disease Social History Smoking Status: Current every day smoker Tobacco: How many years used: 15 quit status: not considering quitting second hand exposure: No alcohol intake: former substance use type: former substance user Smoking Status: Current every day smoker tobacco type: cigarettes alcohol intake frequency: 0-2 drinks per day Exam Initial Vital Signs Initial Vital Signs: Vital Signs Pulse Rate 114 H 06/03/24 14:17 Respiratory Rate 26 H 06/03/24 14:17 Pulse Oximetry 92 06/03/24 14:17 Oxygen Delivery Method Room Air 06/03/24 14:17 General: Critically ill-appearing, dramatically mottled with non perfused distal feet and hands. Mottling up to her mid chest HEENT: dry mucous membranes, pale, perioral cyanosis Respiratory: Lungs diminished bilaterally without obvious rhonchi or wheeze Cardiac: Tachycardic with no murmurs Abdomen: Significantly mottled but no obvious pain behaviors with palpation Skin: Essentially no peripheral perfusion, deep dusky purple toes from the midfoot distal all fingertips, again diffuse mottling, no inguinal pulses palpable Neurologic: Patient is moving all extremities, is able to answer direct questions initially Extremities: No obvious, and minimal to no perfusion Psych: Altered but can answer direct questions Procedures Central Line Placement Right IJ: Time Out Performed: Yes Patient Placed on Monitor/Pulse Ox: Yes MD Prep: mask, gown and gloves Central Line Prep: Chlorhexidine scrub Local Anesthetic: lidocaine 1% Amount of anesthesia used (mL): 2 Ultrasound Used for Placement: Yes Central Line Lumen Inserted: triple Post Procedure: sutured in place, good blood return, all ports aspirated, flushed, capped and sterile dressing applied Post Procedure X-Ray: tip of catheter in good position (On CT scan of the chest) Intubation Time out performed: Yes sedative: Ketamine paralytic: Rocuronium Mg Given: 50 Assist Device Used: fiber optic device ET Tube Size: 7.5 ET Tube Uncuffed: Yes Tube Secured Depth (cm): 23 Tube Secured Location: teeth Tube Placement Confirmation: Visualized tube passing through cords (3 cm above the tracy confirmed on CT scan of the chest) Patient Tolerated Procedure: [place] [facility] [place] Name of Procedure: pericardiocentesis Location: pericardium Technique/Description of procedure performed: us guided subzyphoid approach with pericardiocentesis needle. Catheter introduced into the pericardium with over 550 cc of purulent non clotting fluid easily returned. Catheter was then dislodged and not immediately replaced Patient tolerated procedure: Well Course Orders Ordered: ED Orders 06/03/24 14:15 Basic Metabolic Panel Stat Comprehensive Metabolic Panel Stat D Dimer Stat NT-proBNP (BNP-Adult 18+) Stat PTT Partial Thromboplastin Dilip Stat Procalcitonin Stat Prothrombin Time INR Stat Troponin & CK Cardiac Panel Stat 06/03/24 14:29 Urinalysis and Microscopic Stat 06/03/24 14:32 Complete Blood Count AUTO DIFF Stat Lactate (Lactic Acid) Stat 06/03/24 14:40 CT angio chest abdomen pelvis Stat 06/03/24 14:44 EKG-12 Lead Stat 06/03/24 14:47 Intubation STAT 06/03/24 15:07 EC echo doppler complete Stat 06/03/24 15:13 Blood Culture Stat 06/03/24 15:30 Cell Count w Diff Body Fluid Stat 06/03/24 15:45 Respiratory Panel (Film Array) Stat hh [Hemoglobin and Hematocrit] Stat 06/03/24 15:53 Type and Screen Stat 06/03/24 16:06 Arterial Blood Gas STAT Ventilator Order 06/03/24 16:31 XR chest 1V Stat 06/03/24 21:00 PTT Partial Thromboplastin Dilip Q6H 06/04/24 03:00 PTT Partial Thromboplastin Dilip Q6H 06/04/24 05:00 Hemoglobin and Hematocrit DAILY Platelet Count DAILY 06/04/24 09:00 PTT Partial Thromboplastin Dilip Q6H 06/05/24 05:00 Hemoglobin and Hematocrit DAILY Platelet Count DAILY Chlorhexidine Gluconate (Chlorhexidine Gluconate 15 Ml Cup) 15 ml PO Q6HR JUSTO Fentanyl (Fentanyl 100 Mcg/2 Ml Inj) 50 mcg IV Q15MIN PRN PRN Reason: Agitation Last Admin: 06/03/24 16:09 Dose: 50 mcg Documented By: PABLO NOREPINEPHRINE BITARTRATE/D5W (Levophed) 4 mg in 250 mls @ 29.087 mls/hr IV TITRATE JUSTO; Protocol Last Titration: 06/03/24 14:55 Dose: 0 mcg/kg/min, 0 mls/hr Documented By: Admin: 06/03/24 14:47 Dose: 0.1 mcg/kg/min, 29.087 mls/hr Documented By: SAMPSON Fentanyl 1,000 mcg/ Dextrose 250 mls @ 13.574 mls/hr IV TITRATE JUSTO; Protocol Last Titration: 06/03/24 18:40 Dose: 1 mcg/kg/hr, 19.391 mls/hr Documented By: Titration: 06/03/24 16:43 Dose: 1.5 mcg/kg/hr, 29.087 mls/hr Documented By: Titration: 06/03/24 15:57 Dose: 2 mcg/kg/hr, 38.782 mls/hr Documented By: Titration: 06/03/24 15:50 Dose: 1.7 mcg/kg/hr, 32.965 mls/hr Documented By: Titration: 06/03/24 15:39 Dose: 1.2 mcg/kg/hr, 23.269 mls/hr Documented By: Admin: 06/03/24 15:18 Dose: 0.7 mcg/kg/hr, 13.574 mls/hr Documented By: SAMPSON Midazolam HCl 50 mg/ Dextrose 50 mls @ 5 mls/hr IV TITRATE PRN; Protocol PRN Reason: Sedation Last Titration: 06/03/24 16:43 Dose: 0 mg/hr, 0 mls/hr Documented By: Titration: 06/03/24 15:56 Dose: 8 mg/hr, 8 mls/hr Documented By: Titration: 06/03/24 15:50 Dose: 7 mg/hr, 7 mls/hr Documented By: Titration: 06/03/24 15:39 Dose: 6 mg/hr, 6 mls/hr Documented By: Admin: 06/03/24 15:14 Dose: 5 mg/hr, 5 mls/hr Documented By: SAMPSON Heparin Sodium/Dextrose (Heparin Drip) 25,000 unit in 500 mls @ 27.923 mls/hr IV CONT JUSTO; Protocol Last Admin: 06/03/24 16:23 Dose: 18 units/kg/hr, 27.923 mls/hr Documented By: PABLO Co-signed By: BASSAM Propofol (Diprivan) 1,000 mg in 100 mls @ 2.327 mls/hr IV TITRATE JUSTO; Protocol Last Titration: 06/03/24 18:22 Dose: 0 mcg/kg/min, 0 mls/hr Documented By: Titration: 06/03/24 16:40 Dose: 30 mcg/kg/min, 13.962 mls/hr Documented By: Admin: 06/03/24 16:15 Dose: 5 mcg/kg/min, 2.327 mls/hr Documented By: PABLO Morphine Sulfate 100 mg/ (Sodium Chloride) 100 mls @ 10 mls/hr IV TITRATE JUSTO; Protocol Discontinued Medications Dextrose (Dextrose 50 % In Water 25 Gm/50 Ml Syringe) 25 gm IV NOW ONE Stop: 06/03/24 17:16 Last Admin: 06/03/24 17:19 Dose: 25 gm Documented By: BASSAM Fentanyl (Fentanyl 100 Mcg/2 Ml Inj) 50 mcg IV NOW ONE Stop: 06/03/24 16:07 Last Admin: 06/03/24 16:08 Dose: Not Given Documented By: PABLO Furosemide (Furosemide 40 Mg/4 Ml Vial) 40 mg IV NOW ONE Stop: 06/03/24 16:49 Last Admin: 06/03/24 17:14 Dose: 40 mg Documented By: BASSAM Heparin Sodium (Porcine) (Heparin 5,000 Unit/Ml Vial) 6,000 unit 80 unit/kg (6000 unit) IV NOW ONE Stop: 06/03/24 14:53 Last Admin: 06/03/24 16:23 Dose: 6,000 unit Documented By: PABLO Sodium Chloride (Normal Saline 0.9%) 1,000 mls @ 200 mls/hr IV CONT JUSTO Last Admin: 06/03/24 16:30 Dose: Not Given Documented By: NIA Piperacillin Sod/Tazobactam (Sod 4.5 gm/ Sodium Chloride) 100 mls @ 200 mls/hr IV NOW ONE Stop: 06/03/24 14:45 Last Infusion: 06/03/24 16:35 Dose: Infused Documented By: Admin: 06/03/24 16:03 Dose: 200 mls/hr Documented By: PABLO Sodium Chloride (Normal Saline 0.9%) 1,000 mls @ 1,000 mls/hr IV BOLUS ONE Stop: 06/03/24 15:49 Last Infusion: 06/03/24 15:56 Dose: Infused Documented By: Admin: 06/03/24 14:45 Dose: 1,000 mls/hr Documented By: SAMPSON Sodium Chloride (Normal Saline 0.9%) 1,000 mls @ 1,000 mls/hr IV BOLUS ONE Stop: 06/03/24 15:54 Last Infusion: 06/03/24 15:52 Dose: Infused Documented By: Admin: 06/03/24 14:30 Dose: 1,000 mls/hr Documented By: SAMPSON Calcium Gluconate 4.65 meq/ (Sodium Chloride) 60 mls @ 180 mls/hr IV NOW ONE Stop: 06/03/24 17:07 Last Infusion: 06/03/24 17:28 Dose: Infused Documented By: Admin: 06/03/24 17:00 Dose: 180 mls/hr Documented By: BASSAM Insulin Human Regular (Insulin Regular 100 Unit/Ml 3 Ml Vial) 10 unit IV NOW ONE Stop: 06/03/24 16:49 Last Admin: 06/03/24 17:10 Dose: 10 unit Documented By: BASSAM Co-signed By: NIA Ketamine HCl (Ketamine 500 Mg/5 Ml Inj) 75 mg IV NOW ONE Stop: 06/03/24 14:44 Last Admin: 06/03/24 14:50 Dose: 75 mg Documented By: SAMPSON Rocuronium Pierz (Rocuronium 50 Mg/5 Ml Inj) 50 mg IV NOW ONE Stop: 06/03/24 14:55 Last Admin: 06/03/24 14:50 Dose: 50 mg Documented By: SAMPSON Vital Signs Vital signs: Vital Signs - 8 hr 06/03/24 14:17 06/03/24 14:17 06/03/24 14:28 Temperature 96.6 F L Pulse Rate 114 H 114 H 110 H Respiratory Rate 26 H 23 22 Blood Pressure 134/85 Pulse Oximetry 92 Oxygen Delivery Method Room Air 06/03/24 14:30 06/03/24 14:52 06/03/24 15:19 Temperature 96.6 F L Pulse Rate 111 H 110 H Respiratory Rate 24 Blood Pressure 114/92 H 133/90 Pulse Oximetry Oxygen Delivery Method Ambu Bag 06/03/24 15:23 06/03/24 15:30 06/03/24 15:30 Temperature 96.8 F L Pulse Rate 60 114 H Respiratory Rate 20 Blood Pressure 155/102 H 148/97 H Pulse Oximetry 98 98 Oxygen Delivery Method Ambu Bag 06/03/24 15:34 06/03/24 16:00 06/03/24 16:16 Temperature 96.1 F L Pulse Rate 117 H Respiratory Rate 42 H Blood Pressure 131/90 127/89 Pulse Oximetry 96 Oxygen Delivery Method 06/03/24 16:30 06/03/24 16:42 06/03/24 16:42 Temperature 96.6 F L 97.0 F L Pulse Rate 117 H 119 H Respiratory Rate 26 H 24 Blood Pressure 114/68 Pulse Oximetry 94 94 Oxygen Delivery Method 06/03/24 16:44 06/03/24 16:44 06/03/24 16:45 Temperature 97.2 F L Pulse Rate 120 H Respiratory Rate 24 Blood Pressure 119/75 125/75 Pulse Oximetry 93 Oxygen Delivery Method 06/03/24 16:45 06/03/24 17:00 06/03/24 17:29 Temperature 97.2 F L 97.7 F 98.4 F Pulse Rate 120 H 120 H 123 H Respiratory Rate 24 24 26 H Blood Pressure 124/80 125/80 Pulse Oximetry 95 96 93 Oxygen Delivery Method Mechanical Ventilation Mechanical Ventilation 06/03/24 17:30 06/03/24 18:00 06/03/24 18:30 Temperature 98.2 F 99.0 F 99.3 F Pulse Rate 123 H 128 H 129 H Respiratory Rate 26 H 22 26 H Blood Pressure 128/76 Pulse Oximetry 93 93 96 Oxygen Delivery Method Mechanical Ventilation Medical Decision Making Lab Data 06/03/24 15:45 06/03/24 14:15 Labs: Lab Results 06/03/24 06/03/24 06/03/24 Range/Units 14:15 14:15 14:15 WBC (4.5-11.0) X10^3/uL RBC (4.0-5.2) X10^6/uL Hgb (12.0-16.0) g/dL Hct (36-46) % MCV (80-100) fL MCH (26-34) PG MCHC (30-36) % RDW (11.6-14.8) % Plt Count (150-400) X10^3/uL Neut % (Auto) (50-75) % Lymph % (Auto) (25-40) % [place] % (Auto) (3-14) % Eos % (Auto) (2-4) % Baso % (Auto) (0-2) % Neut # (Auto) (4977-5275) /uL Lymph # (Auto) (8162-7186) /uL [place] # (Auto) (0-900) /uL Eos # (Auto) (0-450) /uL Baso # (Auto) (0-100) /uL PT 20.0 H (9.4-12.5) SECONDS INR 1.8 H (0.9-1.3) APTT 25 L (25.1-36.5) SECONDS D-Dimer 6916 H (<500) ng/ml ABG Sample Site ABG pH (7.35-7.45) ABG pCO2 (35-45) mmHg ABG pO2 (80-100) mmHg ABG HCO3 (23-27) mmol/L ABG Total CO2 (23-27) mmol/L ABG O2 Saturation (95-100) % ABG Base Excess (-2-3) mmol/L Bernard Test Respiration Rate O2 Delivery Device FiO2 % % PEEP or CPAP Sodium 127 L 127 L (137-145) mmol/L Potassium 6.0 H 6.3 H* (3.4-5.1) mmol/L Chloride 93 L (98-107) mmol/L Carbon Dioxide (22-32) mmol/L BUN (7-17) mg/dL Creatinine (0.52-1.04) mg/dL Estimated GFR (>60) mL/min BUN/Creatinine Ratio (6-22) Glucose (70-100) mg/dL Lactate (0.7-2.1) mmol/L Calcium (8.4-10.2) mg/dL Total Bilirubin (0.2-1.3) mg/dL AST (14-36) IU/L ALT (<35) IU/L Alkaline Phosphatase (38-126) U/L Total Creatine Kinase (30-135) U/L Troponin I (0.01-0.034) ng/mL NT-Pro-B Natriuret Pep (<125) pg/mL Total Protein (6.3-8.2) g/dL Albumin (3.5-5.0) g/dL Globulin (1.7-4.1) g/dL Albumin/Globulin Ratio (1.0-2.8) Procalcitonin (<0.5) ng/mL Urine Color Urine Appearance Urine pH (4.5-8.0) Ur Specific [place] (1.000-1.035) Urine Protein (Negative) Urine Glucose (UA) (Negative) g/dL Urine Ketones (NEGATIVE) Urine Occult Blood (Negative) Urine Nitrate (Negative) Urine Bilirubin (NEGATIVE) Urine Urobilinogen (0.2) E.U./dL Ur Leukocyte Esterase (NEGATIVE) Urine RBC (0-5/HPF) Urine WBC (0-5/HPF) Ur Squamous Epith Cells (0-5/HPF) Amorphous Sediment Urine Bacteria (None) Urine Mucus (Negative) Ur Culture Indicated? Vol Urine Centrifuged Fluid Color Fluid Appearance Fluid RBC /uL Fld Tot Nucleated Cell /uL Fluid Neutrophils % % Fluid Lymphocytes % % Fluid Eosinophils % % Fluid Meso/Macro/[place] % % Fluid Abnormal Cells % Body Fluid Clot Fluid Comment Chlamy pneumoniae PCR (Not Detect) Adenovirus (PCR) (Not Detect) B. pertussis DNA (PCR) (Not Detect) B.parapertussis DNA PCR (Not Detecte) Coronavirus OC43 (PCR) (Not Detect) Coronavirus HKU1 (PCR) (Not Detect) Coronavirus 229E (PCR) (Not Detect) SARS-CoV-2 (PCR) (Not Detecte) Coronavirus NL63 (PCR) (Not Detect) Human Metapneumovir PCR (Not Detect) Influenza Type A (PCR) (Not Detect) Influenza Type B (PCR) (Not Detect) M. pneumoniae (PCR) (Not Detect) Parainfluenza 1 (PCR) (Not Detect) Parainfluenza 2 (PCR) (Not Detect) Parainfluenza 3 (PCR) (Not Detect) Parainfluenza 4 (PCR) (Not Detect) RSV (PCR) (Not Detect) Entero/Rhino (PCR) (Not Detect) Blood Type Antibody Screen 06/03/24 06/03/24 06/03/24 Range/Units 14:15 14:15 14:15 WBC (4.5-11.0) X10^3/uL RBC (4.0-5.2) X10^6/uL Hgb (12.0-16.0) g/dL Hct (36-46) % MCV (80-100) fL MCH (26-34) PG MCHC (30-36) % RDW (11.6-14.8) % Plt Count (150-400) X10^3/uL Neut % (Auto) (50-75) % Lymph % (Auto) (25-40) % [place] % (Auto) (3-14) % Eos % (Auto) (2-4) % Baso % (Auto) (0-2) % Neut # (Auto) (6946-9375) /uL Lymph # (Auto) (0727-7402) /uL [place] # (Auto) (0-900) /uL Eos # (Auto) (0-450) /uL Baso # (Auto) (0-100) /uL PT (9.4-12.5) SECONDS INR (0.9-1.3) APTT (25.1-36.5) SECONDS D-Dimer (<500) ng/ml ABG Sample Site ABG pH (7.35-7.45) ABG pCO2 (35-45) mmHg ABG pO2 (80-100) mmHg ABG HCO3 (23-27) mmol/L ABG Total CO2 (23-27) mmol/L ABG O2 Saturation (95-100) % ABG Base Excess (-2-3) mmol/L Bernard Test Respiration Rate O2 Delivery Device FiO2 % % PEEP or CPAP Sodium (137-145) mmol/L Potassium (3.4-5.1) mmol/L Chloride 88 L (98-107) mmol/L Carbon Dioxide 23 25 (22-32) mmol/L BUN 64 H 70 H (7-17) mg/dL Creatinine 0.95 (0.52-1.04) mg/dL Estimated GFR (>60) mL/min BUN/Creatinine Ratio (6-22) Glucose (70-100) mg/dL Lactate (0.7-2.1) mmol/L Calcium (8.4-10.2) mg/dL Total Bilirubin (0.2-1.3) mg/dL AST (14-36) IU/L ALT (<35) IU/L Alkaline Phosphatase (38-126) U/L Total Creatine Kinase (30-135) U/L Troponin I (0.01-0.034) ng/mL NT-Pro-B Natriuret Pep (<125) pg/mL Total Protein (6.3-8.2) g/dL Albumin (3.5-5.0) g/dL Globulin (1.7-4.1) g/dL Albumin/Globulin Ratio (1.0-2.8) Procalcitonin (<0.5) ng/mL Urine Color Urine Appearance Urine pH (4.5-8.0) Ur Specific Warren (1.000-1.035) Urine Protein (Negative) Urine Glucose (UA) (Negative) g/dL Urine Ketones (NEGATIVE) Urine Occult Blood (Negative) Urine Nitrate (Negative) Urine Bilirubin (NEGATIVE) Urine Urobilinogen (0.2) E.U./dL Ur Leukocyte Esterase (NEGATIVE) Urine RBC (0-5/HPF) Urine WBC (0-5/HPF) Ur Squamous Epith Cells (0-5/HPF) Amorphous Sediment Urine Bacteria (None) Urine Mucus (Negative) Ur Culture Indicated? Vol Urine Centrifuged Fluid Color Fluid Appearance Fluid RBC /uL Fld Tot Nucleated Cell /uL Fluid Neutrophils % % Fluid Lymphocytes % % Fluid Eosinophils % % Fluid Meso/Macro/[place] % % Fluid Abnormal Cells % Body Fluid Clot Fluid Comment Chlamy pneumoniae PCR (Not Detect) Adenovirus (PCR) (Not Detect) B. pertussis DNA (PCR) (Not Detect) B.parapertussis DNA PCR (Not Detecte) Coronavirus OC43 (PCR) (Not Detect) Coronavirus HKU1 (PCR) (Not Detect) Coronavirus 229E (PCR) (Not Detect) SARS-CoV-2 (PCR) (Not Detecte) Coronavirus NL63 (PCR) (Not Detect) Human Metapneumovir PCR (Not Detect) Influenza Type A (PCR) (Not Detect) Influenza Type B (PCR) (Not Detect) M. pneumoniae (PCR) (Not Detect) Parainfluenza 1 (PCR) (Not Detect) Parainfluenza 2 (PCR) (Not Detect) Parainfluenza 3 (PCR) (Not Detect) Parainfluenza 4 (PCR) (Not Detect) RSV (PCR) (Not Detect) Entero/Rhino (PCR) (Not Detect) Blood Type Antibody Screen 06/03/24 06/03/24 06/03/24 Range/Units 14:15 14:15 14:15 WBC (4.5-11.0) X10^3/uL RBC (4.0-5.2) X10^6/uL Hgb (12.0-16.0) g/dL Hct (36-46) % MCV (80-100) fL MCH (26-34) PG MCHC (30-36) % RDW (11.6-14.8) % Plt Count (150-400) X10^3/uL Neut % (Auto) (50-75) % Lymph % (Auto) (25-40) % [place] % (Auto) (3-14) % Eos % (Auto) (2-4) % Baso % (Auto) (0-2) % Neut # (Auto) (2676-5866) /uL Lymph # (Auto) (5230-4432) /uL [place] # (Auto) (0-900) /uL Eos # (Auto) (0-450) /uL Baso # (Auto) (0-100) /uL PT (9.4-12.5) SECONDS INR (0.9-1.3) APTT (25.1-36.5) SECONDS D-Dimer (<500) ng/ml ABG Sample Site ABG pH (7.35-7.45) ABG pCO2 (35-45) mmHg ABG pO2 (80-100) mmHg ABG HCO3 (23-27) mmol/L ABG Total CO2 (23-27) mmol/L ABG O2 Saturation (95-100) % ABG Base Excess (-2-3) mmol/L Bernard Test Respiration Rate O2 Delivery Device FiO2 % % PEEP or CPAP Sodium (137-145) mmol/L Potassium (3.4-5.1) mmol/L Chloride (98-107) mmol/L Carbon Dioxide (22-32) mmol/L BUN (7-17) mg/dL Creatinine 1.25 H (0.52-1.04) mg/dL Estimated GFR > 60 56 L (>60) mL/min BUN/Creatinine Ratio 67.4 H 56.0 H (6-22) Glucose 104 H (70-100) mg/dL Lactate (0.7-2.1) mmol/L Calcium (8.4-10.2) mg/dL Total Bilirubin (0.2-1.3) mg/dL AST (14-36) IU/L ALT (<35) IU/L Alkaline Phosphatase (38-126) U/L Total Creatine Kinase (30-135) U/L Troponin I (0.01-0.034) ng/mL NT-Pro-B Natriuret Pep (<125) pg/mL Total Protein (6.3-8.2) g/dL Albumin (3.5-5.0) g/dL Globulin (1.7-4.1) g/dL Albumin/Globulin Ratio (1.0-2.8) Procalcitonin (<0.5) ng/mL Urine Color Urine Appearance Urine pH (4.5-8.0) Ur Specific [place] (1.000-1.035) Urine Protein (Negative) Urine Glucose (UA) (Negative) g/dL Urine Ketones (NEGATIVE) Urine Occult Blood (Negative) Urine Nitrate (Negative) Urine Bilirubin (NEGATIVE) Urine Urobilinogen (0.2) E.U./dL Ur Leukocyte Esterase (NEGATIVE) Urine RBC (0-5/HPF) Urine WBC (0-5/HPF) Ur Squamous Epith Cells (0-5/HPF) Amorphous Sediment Urine Bacteria (None) Urine Mucus (Negative) Ur Culture Indicated? Vol Urine Centrifuged Fluid Color Fluid Appearance Fluid RBC /uL Fld Tot Nucleated Cell /uL Fluid Neutrophils % % Fluid Lymphocytes % % Fluid Eosinophils % % Fluid Meso/Macro/[place] % % Fluid Abnormal Cells % Body Fluid Clot Fluid Comment Chlamy pneumoniae PCR (Not Detect) Adenovirus (PCR) (Not Detect) B. pertussis DNA (PCR) (Not Detect) B.parapertussis DNA PCR (Not Detecte) Coronavirus OC43 (PCR) (Not Detect) Coronavirus HKU1 (PCR) (Not Detect) Coronavirus 229E (PCR) (Not Detect) SARS-CoV-2 (PCR) (Not Detecte) Coronavirus NL63 (PCR) (Not Detect) Human Metapneumovir PCR (Not Detect) Influenza Type A (PCR) (Not Detect) Influenza Type B (PCR) (Not Detect) M. pneumoniae (PCR) (Not Detect) Parainfluenza 1 (PCR) (Not Detect) Parainfluenza 2 (PCR) (Not Detect) Parainfluenza 3 (PCR) (Not Detect) Parainfluenza 4 (PCR) (Not Detect) RSV (PCR) (Not Detect) Entero/Rhino (PCR) (Not Detect) Blood Type Antibody Screen 06/03/24 06/03/24 06/03/24 Range/Units 14:15 14:15 14:29 WBC (4.5-11.0) X10^3/uL RBC (4.0-5.2) X10^6/uL Hgb (12.0-16.0) g/dL Hct (36-46) % MCV (80-100) fL MCH (26-34) PG MCHC (30-36) % RDW (11.6-14.8) % Plt Count (150-400) X10^3/uL Neut % (Auto) (50-75) % Lymph % (Auto) (25-40) % [place] % (Auto) (3-14) % Eos % (Auto) (2-4) % Baso % (Auto) (0-2) % Neut # (Auto) (2328-6997) /uL Lymph # (Auto) (7101-1610) /uL [place] # (Auto) (0-900) /uL Eos # (Auto) (0-450) /uL Baso # (Auto) (0-100) /uL PT (9.4-12.5) SECONDS INR (0.9-1.3) APTT (25.1-36.5) SECONDS D-Dimer (<500) ng/ml ABG Sample Site ABG pH (7.35-7.45) ABG pCO2 (35-45) mmHg ABG pO2 (80-100) mmHg ABG HCO3 (23-27) mmol/L ABG Total CO2 (23-27) mmol/L ABG O2 Saturation (95-100) % ABG Base Excess (-2-3) mmol/L Bernard Test Respiration Rate O2 Delivery Device FiO2 % % PEEP or CPAP Sodium (137-145) mmol/L Potassium (3.4-5.1) mmol/L Chloride (98-107) mmol/L Carbon Dioxide (22-32) mmol/L BUN (7-17) mg/dL Creatinine (0.52-1.04) mg/dL Estimated GFR (>60) mL/min BUN/Creatinine Ratio (6-22) Glucose 111 H (70-100) mg/dL Lactate (0.7-2.1) mmol/L Calcium 8.6 9.7 (8.4-10.2) mg/dL Total Bilirubin 1.8 H (0.2-1.3) mg/dL AST 326 H (14-36) IU/L ALT 337 H (<35) IU/L Alkaline Phosphatase 172 H (38-126) U/L Total Creatine Kinase 2040 H (30-135) U/L Troponin I < 0.012 (0.01-0.034) ng/mL NT-Pro-B Natriuret Pep 1700 H (<125) pg/mL Total Protein 5.7 L (6.3-8.2) g/dL Albumin 2.8 L (3.5-5.0) g/dL Globulin 2.9 (1.7-4.1) g/dL Albumin/Globulin Ratio 1.0 (1.0-2.8) Procalcitonin 2.12 H (<0.5) ng/mL Urine Color [place] Urine Appearance Clear Urine pH 5.5 (4.5-8.0) Ur Specific [place] 1.025 (1.000-1.035) Urine Protein Trace H (Negative) Urine Glucose (UA) Negative (Negative) g/dL Urine Ketones Negative (NEGATIVE) Urine Occult Blood Trace-intact (Negative) Urine Nitrate Negative (Negative) Urine Bilirubin Negative (NEGATIVE) Urine Urobilinogen 1.0 (0.2) E.U./dL Ur Leukocyte Esterase Negative (NEGATIVE) Urine RBC 0-1/hpf D (0-5/HPF) Urine WBC 0-1/hpf (0-5/HPF) Ur Squamous Epith Cells None seen (0-5/HPF) Amorphous Sediment 1+ Urine Bacteria Few (2-10) H (None) Urine Mucus 2+ H (Negative) Ur Culture Indicated? Cult not indicated Vol Urine Centrifuged 10ml (spun) Fluid Color Fluid Appearance Fluid RBC /uL Fld Tot Nucleated Cell /uL Fluid Neutrophils % % Fluid Lymphocytes % % Fluid Eosinophils % % Fluid Mes[place]/Macro/[place] % % Fluid Abnormal Cells % Body Fluid Clot Fluid Comment Chlamy pneumoniae PCR (Not Detect) Adenovirus (PCR) (Not Detect) B. pertussis DNA (PCR) (Not Detect) B.parapertussis DNA PCR (Not Detecte) Coronavirus OC43 (PCR) (Not Detect) Coronavirus HKU1 (PCR) (Not Detect) Coronavirus 229E (PCR) (Not Detect) SARS-CoV-2 (PCR) (Not Detecte) Coronavirus NL63 (PCR) (Not Detect) Human Metapneumovir PCR (Not Detect) Influenza Type A (PCR) (Not Detect) Influenza Type B (PCR) (Not Detect) M. pneumoniae (PCR) (Not Detect) Parainfluenza 1 (PCR) (Not Detect) Parainfluenza 2 (PCR) (Not Detect) Parainfluenza 3 (PCR) (Not Detect) Parainfluenza 4 (PCR) (Not Detect) RSV (PCR) (Not Detect) Entero/Rhino (PCR) (Not Detect) Blood Type Antibody Screen 06/03/24 06/03/24 06/03/24 Range/Units 14:32 15:30 15:45 WBC 14.9 H (4.5-11.0) X10^3/uL RBC 4.51 (4.0-5.2) X10^6/uL Hgb 10.0 L 8.9 L (12.0-16.0) g/dL Hct 32.9 L 28.8 L (36-46) % MCV 72.9 L (80-100) fL MCH 22.2 L (26-34) PG MCHC 30.4 (30-36) % RDW 17.2 H (11.6-14.8) % Plt Count 147 L (150-400) X10^3/uL Neut % (Auto) 76.5 H (50-75) % Lymph % (Auto) 12.1 L (25-40) % [place] % (Auto) 11.0 (3-14) % Eos % (Auto) 0.1 L (2-4) % Baso % (Auto) 0.3 (0-2) % Neut # (Auto) 73983 H (8604-6011) /uL Lymph # (Auto) 1800 (1238-4981) /uL [place] # (Auto) 1600 H (0-900) /uL Eos # (Auto) 0 (0-450) /uL Baso # (Auto) 0 (0-100) /uL PT (9.4-12.5) SECONDS INR (0.9-1.3) APTT (25.1-36.5) SECONDS D-Dimer (<500) ng/ml ABG Sample Site ABG pH (7.35-7.45) ABG pCO2 (35-45) mmHg ABG pO2 (80-100) mmHg ABG HCO3 (23-27) mmol/L ABG Total CO2 (23-27) mmol/L ABG O2 Saturation (95-100) % ABG Base Excess (-2-3) mmol/L Bernard Test Respiration Rate O2 Delivery Device FiO2 % % PEEP or CPAP Sodium (137-145) mmol/L Potassium (3.4-5.1) mmol/L Chloride (98-107) mmol/L Carbon Dioxide (22-32) mmol/L BUN (7-17) mg/dL Creatinine (0.52-1.04) mg/dL Estimated GFR (>60) mL/min BUN/Creatinine Ratio (6-22) Glucose (70-100) mg/dL Lactate 4.1 H* (0.7-2.1) mmol/L Calcium (8.4-10.2) mg/dL Total Bilirubin (0.2-1.3) mg/dL AST (14-36) IU/L ALT (<35) IU/L Alkaline Phosphatase (38-126) U/L Total Creatine Kinase (30-135) U/L Troponin I (0.01-0.034) ng/mL NT-Pro-B Natriuret Pep (<125) pg/mL Total Protein (6.3-8.2) g/dL Albumin (3.5-5.0) g/dL Globulin (1.7-4.1) g/dL Albumin/Globulin Ratio (1.0-2.8) Procalcitonin (<0.5) ng/mL Urine Color Urine Appearance Urine pH (4.5-8.0) Ur Specific Warren (1.000-1.035) Urine Protein (Negative) Urine Glucose (UA) (Negative) g/dL Urine Ketones (NEGATIVE) Urine Occult Blood (Negative) Urine Nitrate (Negative) Urine Bilirubin (NEGATIVE) Urine Urobilinogen (0.2) E.U./dL Ur Leukocyte Esterase (NEGATIVE) Urine RBC (0-5/HPF) Urine WBC (0-5/HPF) Ur Squamous Epith Cells (0-5/HPF) Amorphous Sediment Urine Bacteria (None) Urine Mucus (Negative) Ur Culture Indicated? Vol Urine Centrifuged Fluid Color Bloody Fluid Appearance Turbid Fluid RBC 115923 /uL Fld Tot Nucleated Cell 905 /uL Fluid Neutrophils % 41 % Fluid Lymphocytes % 17 % Fluid Eosinophils % 1 % Fluid Meso/Macro/Providence % 20 % Fluid Abnormal Cells 21 % Body Fluid Clot No clots present Fluid Comment Abnormal cells seen: A Chlamy pneumoniae PCR Not detected (Not Detect) Adenovirus (PCR) Not detected (Not Detect) B. pertussis DNA (PCR) Not detected (Not Detect) B.parapertussis DNA PCR Not detected (Not Detecte) Coronavirus OC43 (PCR) Not detected (Not Detect) Coronavirus HKU1 (PCR) Not detected (Not Detect) Coronavirus 229E (PCR) Not detected (Not Detect) SARS-CoV-2 (PCR) Not detected (Not Detecte) Coronavirus NL63 (PCR) Not detected (Not Detect) Human Metapneumovir PCR Not detected (Not Detect) Influenza Type A (PCR) Not detected (Not Detect) Influenza Type B (PCR) Not detected (Not Detect) M. pneumoniae (PCR) Not detected (Not Detect) Parainfluenza 1 (PCR) Not detected (Not Detect) Parainfluenza 2 (PCR) Not detected (Not Detect) Parainfluenza 3 (PCR) Not detected (Not Detect) Parainfluenza 4 (PCR) Not detected (Not Detect) RSV (PCR) Not detected (Not Detect) Entero/Rhino (PCR) Not detected (Not Detect) Blood Type Antibody Screen 06/03/24 06/03/24 06/03/24 Range/Units 15:53 16:41 18:11 WBC (4.5-11.0) X10^3/uL RBC (4.0-5.2) X10^6/uL Hgb (12.0-16.0) g/dL Hct (36-46) % MCV (80-100) fL MCH (26-34) PG MCHC (30-36) % RDW (11.6-14.8) % Plt Count (150-400) X10^3/uL Neut % (Auto) (50-75) % Lymph % (Auto) (25-40) % [place] % (Auto) (3-14) % Eos % (Auto) (2-4) % Baso % (Auto) (0-2) % Neut # (Auto) (5777-9462) /uL Lymph # (Auto) (1803-4604) /uL [place] # (Auto) (0-900) /uL Eos # (Auto) (0-450) /uL Baso # (Auto) (0-100) /uL PT (9.4-12.5) SECONDS INR (0.9-1.3) APTT (25.1-36.5) SECONDS D-Dimer (<500) ng/ml ABG Sample Site Left radial ABG pH 7.40 (7.35-7.45) ABG pCO2 33.9 L (35-45) mmHg ABG pO2 156 H (80-100) mmHg ABG HCO3 21 L (23-27) mmol/L ABG Total CO2 20 L (23-27) mmol/L ABG O2 Saturation 99 (95-100) % ABG Base Excess -3.6 L (-2-3) mmol/L Bernard Test Positive Respiration Rate 20 O2 Delivery Device Et tube FiO2 % 40 % % PEEP or CPAP 5 Sodium (137-145) mmol/L Potassium (3.4-5.1) mmol/L Chloride (98-107) mmol/L Carbon Dioxide (22-32) mmol/L BUN (7-17) mg/dL Creatinine (0.52-1.04) mg/dL Estimated GFR (>60) mL/min BUN/Creatinine Ratio (6-22) Glucose (70-100) mg/dL Lactate 3.0 H (0.7-2.1) mmol/L Calcium (8.4-10.2) mg/dL Total Bilirubin (0.2-1.3) mg/dL AST (14-36) IU/L ALT (<35) IU/L Alkaline Phosphatase (38-126) U/L Total Creatine Kinase (30-135) U/L Troponin I (0.01-0.034) ng/mL NT-Pro-B Natriuret Pep (<125) pg/mL Total Protein (6.3-8.2) g/dL Albumin (3.5-5.0) g/dL Globulin (1.7-4.1) g/dL Albumin/Globulin Ratio (1.0-2.8) Procalcitonin (<0.5) ng/mL Urine Color Urine Appearance Urine pH (4.5-8.0) Ur Specific Warren (1.000-1.035) Urine Protein (Negative) Urine Glucose (UA) (Negative) g/dL Urine Ketones (NEGATIVE) Urine Occult Blood (Negative) Urine Nitrate (Negative) Urine Bilirubin (NEGATIVE) Urine Urobilinogen (0.2) E.U./dL Ur Leukocyte Esterase (NEGATIVE) Urine RBC (0-5/HPF) Urine WBC (0-5/HPF) Ur Squamous Epith Cells (0-5/HPF) Amorphous Sediment Urine Bacteria (None) Urine Mucus (Negative) Ur Culture Indicated? Vol Urine Centrifuged Fluid Color Fluid Appearance Fluid RBC /uL Fld Tot Nucleated Cell /uL Fluid Neutrophils % % Fluid Lymphocytes % % Fluid Eosinophils % % Fluid Meso/Macro/[place] % % Fluid Abnormal Cells % Body Fluid Clot Fluid Comment Chlamy pneumoniae PCR (Not Detect) Adenovirus (PCR) (Not Detect) B. pertussis DNA (PCR) (Not Detect) B.parapertussis DNA PCR (Not Detecte) Coronavirus OC43 (PCR) (Not Detect) Coronavirus HKU1 (PCR) (Not Detect) Coronavirus 229E (PCR) (Not Detect) SARS-CoV-2 (PCR) (Not Detecte) Coronavirus NL63 (PCR) (Not Detect) Human Metapneumovir PCR (Not Detect) Influenza Type A (PCR) (Not Detect) Influenza Type B (PCR) (Not Detect) M. pneumoniae (PCR) (Not Detect) Parainfluenza 1 (PCR) (Not Detect) Parainfluenza 2 (PCR) (Not Detect) Parainfluenza 3 (PCR) (Not Detect) Parainfluenza 4 (PCR) (Not Detect) RSV (PCR) (Not Detect) Entero/Rhino (PCR) (Not Detect) Blood Type A Positive Antibody Screen Negative MDM Narrative Medical decision making narrative: CC:mottled Complicating co-morbidities: Widely metastatic cancer unknown primary probably lung diagnosed less than a month ago Data collected from: Review of oncology note from [facility], discussion with Cardiology at [facility] Social determinants of health that may influence the patients condition: Patient and family were not aware of the severity of her disease Medical records reviewed: ER notes and imaging studies reviewed Differential considered: Severe sepsis, massive pulmonary embolism, aortic dissection, Exam documented above, pertinent findings include: Critically ill with dramatically poor perfusion, unable to obtain blood pressure or saturation, was able to answer direct questions Lab Test results independently reviewed as above. Pertinent findings: CBC Leukocytosis at 14.9, anemia at 10 and 32.9 Coagulation studies show dramatically elevated D-dimer, elevated INR at 1.8 PTT is actually low Blood gas shows pH of 7.4, CO2 is 33.9 PO2 is 156 Chemistries with more notable abnormalities essentially multisystem organ failure including hyponatremia, hyperkalemia, acute kidney injury, elevated liver enzymes, elevated creatinine kinase, elevated BNP Troponin is undetectable Initial lactic acid is 4.1 Procalcitonin is elevated at 2.1 Urine does not appear to be significantly infected Independently reviewed EKG: Sinus tachycardia at 117.. Poor baseline, no acute ischemic changes Imaging studies independently reviewed: CT angio scan of the chest abdomen and pelvis with dramatic abnormalities most of which are worse compared to CT scan from 3 weeks ago. Highlights include: Massive pericardial effusion Small pulmonary embolus in subsegmental branches of the left lower lobe Large right hilar mass adenopathy significant mass effect on the adjacent right pulmonary artery with absence of contrast opacification at the level of the proximal right lower lobe pulmonary artery Significant but stable mediastinal adenopathy Interval development of right pleural effusion Interval development of 2 masslike consolidations in the posterior and lateral aspect of the right lower lobe with hazy ground-glass opacity and posterior lateral aspect of the lingular segment Extensive bony metastases with associated soft tissue component similar to 3 weeks Interval increase in hepatic lesion concerning for metastases Consultations: Discussed with cardiology at [facility] when echocardiogram revealed massive pericardial effusion Discussed with oncology and thoracic Oncology surgery at the [facility] with real-time review of CT imaging studies Treatments: 39-year-old woman initially Nathan that is significantly mottled no additional history available. Acute resuscitation initiated including central line placement with large volume fluid replacement Intubation Initiation of antibiotics Khoury catheterization Pressors for her hypotension Sedation secondary to intubation Heparin is initiated with presumed massive pulmonary embolism, concern for developing DIC and concern for clotting necrotic toes and fingers Sent to CT with intubation, ACLS pads in place, 2 nurses in Respiratory therapy immediately available CT scan reviewed in real-time, massive pericardial effusion appreciated without obvious saddle pulmonary embolism. Possibility of the large pericardial effusion as the source of her overall lack of perfusion is considered. Decision was made to do a pericardiocentesis. Echocardiogram done at bedside confirmed massive pericardial effusion. With ultrasound guidance pericardiocentesis needle is introduced in the pericardium with 550 cc of very bloody pericardial fluid easily returned and still significant amount of pericardial fluid noted on ultrasound. 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 Findings were reviewed with ICU and surgical oncology of the [facility] with real-time review studies and recognition that she has advanced disease that is not going to be curable 37 minute family discussion with multiple family members discussing prognosis and continued care. Patient was alert enough to indicate that she wanted full care including intubation on initial arrival. Now that we have a more complete picture of her overall issues with long discussion and recognition of futility we are going to choose to move to full comfort care. I am going to extubate her in the emergency department, transition to morphine drip with focus on comfort. I have been very clear with the family that expectation is that she will and they can be at her bedside and we can make this is painless as possible. All are in agreement. Findings reviewed with the hospitalist and she will be admitted inpatient for full comfort care Critical Care Time Critical Care Time Critical Care Time: Yes Total Critical Care Time: 94 Attestation: Critical care time is separate from other billable procedures. There is a high probability of a significant, sudden or life-threatening deterioration that requires my full and direct attention, intervention and personal management. This critical care time includes consultation with family and other consulting doctors, review of records, and interpretation of data from labs, EKGs and imaging as well as managements of multi-system organ failure, widely metastatic cancer,, respiratory failure, circulatory failure, hyperkalemia Discharge Plan Departure Patient Disposition: Admitted As Inpatient Clinical Impression: Metastatic malignant neoplasm of unknown primary site, MOSF (multiple organ systems failure), Obstructive cardiovascular shock, Acute pericardial effusion Admit Date/Time: 06/03/24 18:31 Admit Provider: Bari Rice
[2024-06-03 15:17] LABS: Alanine Aminotransferase 337 IU/L (<35); Albumin 2.8 g/dL (3.5-5.0); Alkaline Phosphatase 172 U/L (38-126); Aspartate Aminotransferase 326 IU/L (14-36); BUN Creatinine Ratio 67.4 (6-22); Bilirubin Total 1.8 mg/dL (0.2-1.3); Blood Urea Nitrogen 64 mg/dL (7-17); Calcium 8.6 mg/dL (8.4-10.2); Carbon Dioxide 23 mmol/L (22-32); Chloride 93 mmol/L (98-107); Estimated Glomerular Filt Rate > 60 mL/min (>60); Globulin 2.9 g/dL (1.7-4.1); Glucose 104 mg/dL (70-100); Sodium 127 mmol/L (137-145); Total Protein 5.7 g/dL (6.3-8.2)
[2024-06-03 15:18] LABS: Lactate (Lactic Acid) 4.1 mmol/L (0.7-2.1)
[2024-06-03] MEDS: fentaNYL 1,000 MCG in DEXTROSE 5% IN WATER 230 ML 13.574 MCG IV (15:18)
[2024-06-03 15:23] LABS: Add Manual Diff / Slide Review NO; Basophils Absolute Auto 0 /uL (0-100); Basophils Percent Auto 0.3 % (0-2); Eosinophils Absolute Auto 0 /uL (0-450); Eosinophils Percent Auto 0.1 % (2-4); Hematocrit 32.9 % (36-46); Lymphocytes Absolute Auto 1800 /uL (1100-4500); Lymphocytes Percent Auto 12.1 % (25-40); Mean Corpuscular HGB Conc 30.4 % (30-36); Mean Corpuscular Hemoglobin 22.2 PG (26-34); Mean Corpuscular Volume 72.9 fL (80-100); Monocytes Absolute Auto 1600 /uL (0-900); Neutrophils Absolute Auto 11400 /uL (1500-7000); Neutrophils Percent Auto 76.5 % (50-75); Platelet Count 147 X10^3/uL (150-400); Red Blood Cell Count 4.51 X10^6/uL (4.0-5.2); Red Cell Distribution Width 17.2 % (11.6-14.8); White Blood Cell Count 14.9 X10^3/uL (4.5-11.0)
[2024-06-03 15:23] LABS: Creatine Kinase 2040 U/L (30-135); HEMOLYSIS 28 (0-50)
[2024-06-03 15:24] LABS: PTT Partial Thromboplastin Tim 25 SECONDS (25.1-36.5)
[2024-06-03 15:25] LABS: Appearance Urine UA CLEAR; Bilirubin Urine UA NEGATIVE (NEGATIVE); Glucose Urine UA NEGATIVE (Negative); Ketones Urine UA NEGATIVE (NEGATIVE); Leukocyte Esterase Urine UA NEGATIVE (NEGATIVE); Nitrite Urine UA NEGATIVE (Negative); Occult Blood Urine UA TRACE-INTACT (Negative); Protein Urine UA TRACE (Negative); Specific Gravity Urine UA 1.025 (1.000-1.035)
[2024-06-03 15:29] LABS: NT-proBNP (BNP-Adult 18+) 1700 pg/mL (<125); Troponin I < 0.012 ng/mL (0.01-0.034)
[2024-06-03 15:34] LABS: Color Urine UA ORANGE; Urine Volume 10mL (spun); pH Urine UA 5.5 (4.5-8.0)
[2024-06-03 15:34] LABS: Procalcitonin 2.12 ng/mL (<0.5)
[2024-06-03 15:35] LABS: Amorphous Sediment Urine 1+; Bacteria Urine Few (2-10); Culture Indicated Urine Cult Not Indicated; Mucus Urine 2+ (Negative); RBC Urine 0-1/HPF (0-5/HPF); Squamous Epithelial Cell Urine None Seen (0-5/HPF); WBC Urine 0-1/HPF (0-5/HPF)
[2024-06-03 15:57] LABS: Body Fluid Tot Nucleated Cells 905 /uL
--- NOTE | 2024-06-03 16:00 | PC.NURSE ---
ER Critical Care Timeline: 1414: Patient arrived to ER via EMS, transferred to ER stretcher in Room 1. Patient is alert and answering questions at time of arrival. Skin noted to be cool to touch and generalized mottling/ducky appearance. Patient has patent IV that EMS placed in R upper extremity. Staff unable to get automatic blood pressure reading on patient. MD at bedside and preparing to place central line. 1425: Temp sensing kelly catheter placed and urine sample sent to lab. 1430: Central line placed and first set of blood cultures drawn and sent to lab. Manual BP reads 106/p. 1440: Code status discussed with patient by Dr. Mello and patient expresses wanting to be a full code. Discussion about need for intubation completed with patient and MD and staff preparing for intubation. 1447: Levophed started, see MAY. 1451: Patient intubated with 7.5 ETT, secured at 22 @ the teeth. Positive color change seen on CO2 detector and bilateral/equal breathsounds heard on auscultation. 1455: Patient taken to CT, manual ventilation done by RT with Ambu-bag/ETT. Levophed paused at this time r/t BP improving. 1510: Patient returns from CT, MD gave verbal orders for STAT bedside ECHO. 1520: ECHO at bedside with Dr. Mello, preparing for emergent pericardiocentesis. Patient on mechanical ventilator, BP 155/102, HR 60. 1523: Bedside periocardiocentesis, bedside ultrasound guided with assistance of legal technician. 1530: Procedure completed with total of 500cc blood removed. Verbal orders for post procedure ECHO to be completed. Patient ventilating well and BP stable, 131/90. Sedated with IV Fentanyl and Versed gtt.
[2024-06-03] MEDS: PIPERACILLIN/TAZO 4.5 GM in SODIUM CHLORIDE 0.9% 100 ML IV (16:03)
[2024-06-03] MEDS: fentaNYL 100 MCG/2 ML INJ 50 MCG IV ×4 (16:09→23:27)
[2024-06-03 16:13] LABS: Hematocrit 28.8 % (36-46); Hemoglobin 8.9 g/dL (12.0-16.0)
[2024-06-03] MEDS: propofoL 1,000 MG/100 ML VIAL 2.327 MG IV (16:15)
--- NOTE | 2024-06-03 16:19 | PC.NURSE ---
Pt arrived via EMS w/ altered mental status, weakness and shortness of breath. Noted to be pale, poor muscle tone, alert but not oriented to place or situation. Mottled from neck down. Skin is cool w/ poor turger. BS are decreased bilaterally. abd is soft, non tender w/ positive bowel sounds. Dr. Mello to bedside upon arrival. Unable to get bp per machine, palp bp noted 107 systolic. Cap refill is greater than 5 seconds. Noted bruise or deep tissue injury to left thigh. no radial or pedal pulses able to be obtained. Pt stated she wanted to be full code. Dr. Mello assessed pt and placed central access. Pt was intubated w/ time out and RSI. To CT w/ 2 RNs and monitoring. Echo to bedside as heart noted to be extremely large on CT. ECHO confirmed critical pericardial effusion. Dr. Mello performed pericardialcentisis with 550 cc of non clotting blood. Attempting to transfer pt at this time. Family was updated throughout care.
[2024-06-03] MEDS: HEPARIN DRIP 25,000 UNIT/500 ML IV.SOLN 27.923 UNIT IV (16:23)
[2024-06-03] MEDS: HEPARIN 5,000 UNIT/ML VIAL 6000 UNIT IV (16:23)
[2024-06-03 16:26] LABS: Body Fluid Appearance TURBID; Body Fluid Clotted? NO CLOTS PRESENT; Body Fluid Color BLOODY
--- NOTE | 2024-06-03 16:29 | EKG_ITS ---
[address] [address] Test Date: 2024-06-03 Pat Name: Kitty Noguera Department: [facility] Room: Gender: Female [employer] Representative: ORALIA : 1985 Requested By: Order Number: [id number] Reading MD: Bari Rice Measurements Intervals [place] Rate: 117 P: 70 MO: 150 QRS: -13 QRSD: 76 T: 92 QT: 332 QTc: 463 Interpretive Statements Sinus tachycardia Low voltage QRS Inferior infarct , age undetermined Cannot rule out Anterior infarct , age undetermined Electronically Signed On 06-06-2024 18:28:30 PDT by Bari Rice
--- NOTE | 2024-06-03 16:31 | DI.RAD.S_ITS ---
PROCEDURE: XR CHEST 1V INDICATIONS: check NGT placement TECHNIQUE: One view of the chest was acquired. COMPARISON: None. FINDINGS: Surgical changes and devices: ETT tip is approximately 4.3 cm above the tracy. Right internal jugular central venous catheter tip is in SVC. NG tube tip is below the left hemidiaphragm.. Lungs and pleura: Pulmonary vascular congestion is seen. No definite focal infiltrate. No pleural effusions or pneumothorax. Mediastinum: Mediastinal contours appear normal. Heart size is enlarged. Bones and chest wall: No suspicious bony lesions. Overlying soft tissues appear unremarkable. IMPRESSION: ETT, NG tube and right internal jugular central venous catheter are in satisfactory positions. Cardiomegaly and mild congestion. No definite focal infiltrate. No pleural effusion or pneumothorax. Dictated by: Ryan Spencer M.D. on 06/03/2024 at 16:46 Approved by: Ryan Spencer M.D. on 06/03/2024 at 16:49
[2024-06-03 16:33] LABS: Comment Body Fluid ABNORMAL CELLS SEEN:
[2024-06-03 16:37] LABS: Reflexed Lactate in 2 Hours Y
[2024-06-03 16:38] LABS: Abnormal Cells Body Fluid 21 %; Eosinophils Body Fluid 1 %; Lymphocytes Body Fluid 17 %; MESO/MACRO/MONO Body Fluid 20 %; Neutrophils Body Fluid 41 %
[2024-06-03 16:40] LABS: Adenovirus Not Detected (Not Detect); B. parapertussis Not Detected (Not Detecte); Bordetella pertussis Not Detected (Not Detect); Chlamydophila pneumoniae Not Detected (Not Detect); Coronavirus 229E Not Detected (Not Detect); Coronavirus HKU1 Not Detected (Not Detect); Coronavirus NL 63 Not Detected (Not Detect); Coronavirus OC43 Not Detected (Not Detect); Human Metapneumovirus Not Detected (Not Detect); Human Rhinovirus/Enterovirus Not Detected (Not Detect); Influenza A Not Detected (Not Detect); Influenza B Not Detected (Not Detect); Mycoplasma pneumoniae Not Detected (Not Detect); Parainfluenza Virus 1 Not Detected (Not Detect); Parainfluenza Virus 2 Not Detected (Not Detect); Parainfluenza Virus 3 Not Detected (Not Detect); Parainfluenza Virus 4 Not Detected (Not Detect); Respiratory Syncytial Virus Not Detected (Not Detect); SARS- CoV-2 Not Detected (Not Detecte)
[2024-06-03 16:46] LABS: Blood Urea Nitrogen 70 mg/dL (7-17); Carbon Dioxide 25 mmol/L (22-32); Chloride 88 mmol/L (98-107); Estimated Glomerular Filt Rate 56 mL/min (>60); HEMOLYSIS < 15 (0-50); Sodium 127 mmol/L (137-145)
[2024-06-03 16:47] LABS: Allen Test for ABG Passed? Positive; Base Excess ABG -3.6 mmol/L (-2-3); Blood Gas Collection Site Left Radial; Delivery System ET Tube; HCO3 ABG 21 mmol/L (23-27); Oxygen Saturation ABG 99 % (95-100); PCO2 ABG 33.9 mmHg (35-45); PEEP 5; PO2 ABG 156 mmHg (80-100); Respiratory Rate 20; TCO2 ABG 20 mmol/L (23-27)
[2024-06-03 16:47] LABS: Calcium 9.7 mg/dL (8.4-10.2); Glucose 111 mg/dL (70-100)
[2024-06-03 16:48] LABS: Potassium 6.3 mmol/L (3.4-5.1)
[2024-06-03] MEDS: CALCIUM GLUCONATE 4.65 MEQ in SODIUM CHLORIDE 0.9% 50 ML 180 MEQ IV (17:00)
[2024-06-03] MEDS: INSULIN REGULAR 100 UNIT/ML 3 ML VIAL 10 UNIT IV (17:10)
[2024-06-03] MEDS: FUROSEMIDE 40 MG/4 ML VIAL IV (17:14)
[2024-06-03] MEDS: DEXTROSE 50 % IN WATER 25 GM/50 ML SYRINGE IV (17:19)
--- NOTE | 2024-06-03 17:33 | PC.NURSE ---
OG placed by another nurse
--- NOTE | 2024-06-03 17:46 | PC.NURSE ---
patient placed in soft restraints while the patient's reaches adequate sedation. not in restraints at this time.
--- NOTE | 2024-06-03 18:42 | RT ---
PT EXTUBATED TO COMFORT CARE AND PLACED ON 3 LPM N/C PER DR. URBINA'S ORDER.
--- NOTE | 2024-06-03 18:52 | PC.NURSE ---
The provider and family met and they were updated of the patient's condition. The family and provider made the decision to extubate the pt and place her on comfort care. The pt was extubated without complications at 1844 with RT and the RN. The patient was able to take deep breaths on her own thereafter.
[2024-06-03] MEDS: MORPHINE 100 MG in SODIUM CHLORIDE 0.9% 90 ML 10 MG IV (19:07)
[2024-06-03] MEDS: SCOPOLAMINE 1 PATCH TOP (21:40)
[2024-06-03] MEDS: LORazepam 2 MG/ML INJ 0.5 MG IV ×2 (22:07→23:26)
--- NOTE | 2024-06-03 22:53 | PC.NURSE ---
Pt. admitted to room 225, accomapnied with her family members. She's sedated on heparin drip which is discontinued & morphine gtt. Daughter staying with the patient. Since she was in the room, medicated her with Fentanyl & Lorazepam. Scopolamine patch also applied. Will monitor,
[2024-06-04] MEDS: fentaNYL 100 MCG/2 ML INJ 50 MCG IV ×2 (00:40→04:58)
[2024-06-04] MEDS: LORazepam 2 MG/ML INJ 0.5 MG IV ×4 (00:41→04:59)
[2024-06-04] MEDS: GLYCOPYRROLATE 0.4 MG/2 ML VIAL IV (02:03)
[2024-06-04] MEDS: MORPHINE 100 MG in SODIUM CHLORIDE 0.9% 90 ML 10 MG IV (03:22)
--- NOTE | 2024-06-04 05:28 | PC.NURSE ---
Pt time of 510. Family at bedside, provider Dr Gong notified.
--- NOTE | 2024-06-04 05:30 | PM.HP.1 ---
History of Present Illness History of Present Illness Date Patient Seen: 06/04/24 Chief complaint: pain, decrease consciousness Narrative: 39 y/o F , current cig smoker, and h/o former substance abuse, with recent diagnosis of advanced Metastatic cancer, Primary unclear, as history is limited, pt obtunded, and her daughter Amada, and sister Amada at bedside, does not seem to know much about pt's course of the cancer, pt was brought to ED by EMS, with most of her body mottled, sec to decreased perfusion, pt lethargic per presentation to ED, and answering in minimal responses, had requested all to be done for her, so was intubated, a central line placed per ED, and a Heparin drip started as CTA Chest showed PE in L Lower lobe. Also noted was a Large Pericardial effusion, and R hilar mass / Lymphadenopathy with significant mass effect on adjacent R pulm A. seen were also 2 mass like consolidations in R lung, and focal pneumonitis of lingular area, as well as bony mets L5-S1, and R post 9th rib. Again seen Hepatic lesion, increased in size, ( see details on CTA chest/ abd / Pelvis) Cardiologfy was consulted, a STAT echo obtained and emergent Cardiocentesis done, with removal of Bloody Pericardial effusion with some transient improvement in hemodynamics. Oncology and Surgical Oncology consulted per ED, with review of pt's CTA chest / Abd / Pelvis, and all work up done in ED, and it was determined that pt's metstatic disease was at a very advanced stafge, complicated further by malignant pericardial effusion, and there was no curable option. ED Provider discussed in detail with POA/ Family members ( see ED note) and pt was made Comfort care per wishes of the family. Pt was extubated, started on Morphine drip, also ordered Fentanyl Injections, and Ativan prn. Scoploamine patch ordered for secretion control. Pt was referred to Hospitalist team for admission. I spoke to patient's daughter and sister, during remote session, and they could not provide any additional history about the patient's cancer diagnosis and progression, They said pt was seen by oncologist at [facility] , a couple of weeks ago, and during last 4-5 days, she had worsened, becoming Short of breath, lethargic, and obtunded. [facility] Medical History (Updated 06/04/24 @ 06:46 by Melissa Gong MD) Liver mass Rheumatoid arthritis (~2013) PTSD (post-traumatic stress disorder) (~2009) Restless leg syndrome (~2009) Shoulder pain (~2009) Chronic back pain (~2005) Hand pain Right wrist pain Carpal tunnel syndrome on both sides (~2019) Thoracic region somatic dysfunction Cervical somatic dysfunction Cervical radiculopathy GERD (gastroesophageal reflux disease) (~1997) History of migraine headaches Depression with anxiety Frequent headaches Surgical History Anesthesia Fallopian tube disorder (~2016) Family History Mother Age: 69 Hypertension Father History of heart disease Hyperlipidemia Hypertension Grandfather Stroke Grandmother Stroke Grandfather History of heart disease Grandmother History of heart disease Social History Smoking Status: Current every day smoker Tobacco: How many years used: 15 quit status: not considering quitting second hand exposure: No alcohol intake: former substance use type: former substance user Meds Home Medications and Allergies Home Medications Medication Instructions Recorded Confirmed Type Unobtainable 06/03/24 06/03/24 History Allergies Allergy/AdvReac Type Severity Reaction Status Date / Time NSAIDS (Non-Steroidal Allergy Severe Swelling Verified 04/24/24 16:33 Anti-Inflamma all over and my whole body turned beet red Review of Systems Review of Systems ROS: Yes unobtainable due to mental status Exam Vital Signs (past 8 hours): Oxygen Delivery Method Mechanical Ventilation Const Other: Patient laying in bed, obtunded, gasping , face is somewhat flushed. Pt's daughter and Sister and pt's nurse are at bedside. Exam is limited sec to pt's obtunded state, as well as keeping it limited for patient's comfort. Lungs : diminished at bases. Heart : Tachycardia, distant Heart sounds. Ext: mottled . Objective Labs 06/03/24 15:45 06/03/24 14:15 Labs: Laboratory Results - last 24 hr 06/03/24 06/03/24 06/03/24 14:15 14:15 14:15 WBC RBC Hgb Hct MCV MCH MCHC RDW Plt Count Neut % (Auto) Lymph % (Auto) [place] % (Auto) Eos % (Auto) Baso % (Auto) Neut # (Auto) Lymph # (Auto) [place] # (Auto) Eos # (Auto) Baso # (Auto) PT 20.0 H INR 1.8 H APTT 25 L D-Dimer 6916 H ABG Sample Site ABG pH ABG pCO2 ABG pO2 ABG HCO3 ABG Total CO2 ABG O2 Saturation ABG Base Excess Bernard Test Respiration Rate O2 Delivery Device FiO2 % PEEP or CPAP Sodium 127 L 127 L Potassium 6.0 H 6.3 H* Chloride 93 L Carbon Dioxide BUN Creatinine Estimated GFR BUN/Creatinine Ratio Glucose Lactate Calcium Total Bilirubin AST ALT Alkaline Phosphatase Total Creatine Kinase Troponin I NT-Pro-B Natriuret Pep Total Protein Albumin Globulin Albumin/Globulin Ratio Procalcitonin Urine Color Urine Appearance Urine pH Ur Specific [place] Urine Protein Urine Glucose (UA) Urine Ketones Urine Occult Blood Urine Nitrate Urine Bilirubin Urine Urobilinogen Ur Leukocyte Esterase Urine RBC Urine WBC Ur Squamous Epith Cells Amorphous Sediment Urine Bacteria Urine Mucus Ur Culture Indicated? Vol Urine Centrifuged Fluid Color Fluid Appearance Fluid RBC Fld Tot Nucleated Cell Fluid Neutrophils % Fluid Lymphocytes % Fluid Eosinophils % Fluid [place]/Macro/[place] % Fluid Abnormal Cells Body Fluid Clot Fluid Comment Chlamy pneumoniae PCR Adenovirus (PCR) B. pertussis DNA (PCR) B.parapertussis DNA PCR Coronavirus OC43 (PCR) Coronavirus HKU1 (PCR) Coronavirus 229E (PCR) SARS-CoV-2 (PCR) Coronavirus NL63 (PCR) Human Metapneumovir PCR Influenza Type A (PCR) Influenza Type B (PCR) M. pneumoniae (PCR) Parainfluenza 1 (PCR) Parainfluenza 2 (PCR) Parainfluenza 3 (PCR) Parainfluenza 4 (PCR) RSV (PCR) Entero/Rhino (PCR) Blood Type Antibody Screen 06/03/24 06/03/24 06/03/24 14:15 14:15 14:15 WBC RBC Hgb Hct MCV MCH MCHC RDW Plt Count Neut % (Auto) Lymph % (Auto) [place] % (Auto) Eos % (Auto) Baso % (Auto) Neut # (Auto) Lymph # (Auto) [place] # (Auto) Eos # (Auto) Baso # (Auto) PT INR APTT D-Dimer ABG Sample Site ABG pH ABG pCO2 ABG pO2 ABG HCO3 ABG Total CO2 ABG O2 Saturation ABG Base Excess Bernard Test Respiration Rate O2 Delivery Device FiO2 % PEEP or CPAP Sodium Potassium Chloride 88 L Carbon Dioxide 23 25 BUN 64 H 70 H Creatinine 0.95 Estimated GFR BUN/Creatinine Ratio Glucose Lactate Calcium Total Bilirubin AST ALT Alkaline Phosphatase Total Creatine Kinase Troponin I NT-Pro-B Natriuret Pep Total Protein Albumin Globulin Albumin/Globulin Ratio Procalcitonin Urine Color Urine Appearance Urine pH Ur Specific [place] Urine Protein Urine Glucose (UA) Urine Ketones Urine Occult Blood Urine Nitrate Urine Bilirubin Urine Urobilinogen Ur Leukocyte Esterase Urine RBC Urine WBC Ur Squamous Epith Cells Amorphous Sediment Urine Bacteria Urine Mucus Ur Culture Indicated? Vol Urine Centrifuged Fluid Color Fluid Appearance Fluid RBC Fld Tot Nucleated Cell Fluid Neutrophils % Fluid Lymphocytes % Fluid Eosinophils % Fluid [place]/Macro/[place] % Fluid Abnormal Cells Body Fluid Clot Fluid Comment Chlamy pneumoniae PCR Adenovirus (PCR) B. pertussis DNA (PCR) B.parapertussis DNA PCR Coronavirus OC43 (PCR) Coronavirus HKU1 (PCR) Coronavirus 229E (PCR) SARS-CoV-2 (PCR) Coronavirus NL63 (PCR) Human Metapneumovir PCR Influenza Type A (PCR) Influenza Type B (PCR) M. pneumoniae (PCR) Parainfluenza 1 (PCR) Parainfluenza 2 (PCR) Parainfluenza 3 (PCR) Parainfluenza 4 (PCR) RSV (PCR) Entero/Rhino (PCR) Blood Type Antibody Screen 06/03/24 06/03/24 06/03/24 14:15 14:15 14:15 WBC RBC Hgb Hct MCV MCH MCHC RDW Plt Count Neut % (Auto) Lymph % (Auto) [place] % (Auto) Eos % (Auto) Baso % (Auto) Neut # (Auto) Lymph # (Auto) [place] # (Auto) Eos # (Auto) Baso # (Auto) PT INR APTT D-Dimer ABG Sample Site ABG pH ABG pCO2 ABG pO2 ABG HCO3 ABG Total CO2 ABG O2 Saturation ABG Base Excess Bernard Test Respiration Rate O2 Delivery Device FiO2 % PEEP or CPAP Sodium Potassium Chloride Carbon Dioxide BUN Creatinine 1.25 H Estimated GFR > 60 56 L BUN/Creatinine Ratio 67.4 H 56.0 H Glucose 104 H Lactate Calcium Total Bilirubin AST ALT Alkaline Phosphatase Total Creatine Kinase Troponin I NT-Pro-B Natriuret Pep Total Protein Albumin Globulin Albumin/Globulin Ratio Procalcitonin Urine Color Urine Appearance Urine pH Ur Specific [place] Urine Protein Urine Glucose (UA) Urine Ketones Urine Occult Blood Urine Nitrate Urine Bilirubin Urine Urobilinogen Ur Leukocyte Esterase Urine RBC Urine WBC Ur Squamous Epith Cells Amorphous Sediment Urine Bacteria Urine Mucus Ur Culture Indicated? Vol Urine Centrifuged Fluid Color Fluid Appearance Fluid RBC Fld Tot Nucleated Cell Fluid Neutrophils % Fluid Lymphocytes % Fluid Eosinophils % Fluid [place]/Macro/[place] % Fluid Abnormal Cells Body Fluid Clot Fluid Comment Chlamy pneumoniae PCR Adenovirus (PCR) B. pertussis DNA (PCR) B.parapertussis DNA PCR Coronavirus OC43 (PCR) Coronavirus HKU1 (PCR) Coronavirus 229E (PCR) SARS-CoV-2 (PCR) Coronavirus NL63 (PCR) Human Metapneumovir PCR Influenza Type A (PCR) Influenza Type B (PCR) M. pneumoniae (PCR) Parainfluenza 1 (PCR) Parainfluenza 2 (PCR) Parainfluenza 3 (PCR) Parainfluenza 4 (PCR) RSV (PCR) Entero/Rhino (PCR) Blood Type Antibody Screen 06/03/24 06/03/24 06/03/24 14:15 14:15 14:29 WBC RBC Hgb Hct MCV MCH MCHC RDW Plt Count Neut % (Auto) Lymph % (Auto) [place] % (Auto) Eos % (Auto) Baso % (Auto) Neut # (Auto) Lymph # (Auto) [place] # (Auto) Eos # (Auto) Baso # (Auto) PT INR APTT D-Dimer ABG Sample Site ABG pH ABG pCO2 ABG pO2 ABG HCO3 ABG Total CO2 ABG O2 Saturation ABG Base Excess Bernard Test Respiration Rate O2 Delivery Device FiO2 % PEEP or CPAP Sodium Potassium Chloride Carbon Dioxide BUN Creatinine Estimated GFR BUN/Creatinine Ratio Glucose 111 H Lactate Calcium 8.6 9.7 Total Bilirubin 1.8 H AST 326 H ALT 337 H Alkaline Phosphatase 172 H Total Creatine Kinase 2040 H Troponin I < 0.012 NT-Pro-B Natriuret Pep 1700 H Total Protein 5.7 L Albumin 2.8 L Globulin 2.9 Albumin/Globulin Ratio 1.0 Procalcitonin 2.12 H Urine Color [place] Urine Appearance Clear Urine pH 5.5 Ur Specific [place] 1.025 Urine Protein Trace H Urine Glucose (UA) Negative Urine Ketones Negative Urine Occult Blood Trace-intact Urine Nitrate Negative Urine Bilirubin Negative Urine Urobilinogen 1.0 Ur Leukocyte Esterase Negative Urine RBC 0-1/hpf D Urine WBC 0-1/hpf Ur Squamous Epith Cells None seen Amorphous Sediment 1+ Urine Bacteria Few (2-10) H Urine Mucus 2+ H Ur Culture Indicated? Cult not indicated Vol Urine Centrifuged 10ml (spun) Fluid Color Fluid Appearance Fluid RBC Fld Tot Nucleated Cell Fluid Neutrophils % Fluid Lymphocytes % Fluid Eosinophils % Fluid [place]/Macro/[place] % Fluid Abnormal Cells Body Fluid Clot Fluid Comment Chlamy pneumoniae PCR Adenovirus (PCR) B. pertussis DNA (PCR) B.parapertussis DNA PCR Coronavirus OC43 (PCR) Coronavirus HKU1 (PCR) Coronavirus 229E (PCR) SARS-CoV-2 (PCR) Coronavirus NL63 (PCR) Human Metapneumovir PCR Influenza Type A (PCR) Influenza Type B (PCR) M. pneumoniae (PCR) Parainfluenza 1 (PCR) Parainfluenza 2 (PCR) Parainfluenza 3 (PCR) Parainfluenza 4 (PCR) RSV (PCR) Entero/Rhino (PCR) Blood Type Antibody Screen 06/03/24 06/03/24 06/03/24 14:32 15:30 15:45 WBC 14.9 H RBC 4.51 Hgb 10.0 L 8.9 L Hct 32.9 L 28.8 L MCV 72.9 L MCH 22.2 L MCHC 30.4 RDW 17.2 H Plt Count 147 L Neut % (Auto) 76.5 H Lymph % (Auto) 12.1 L [place] % (Auto) 11.0 Eos % (Auto) 0.1 L Baso % (Auto) 0.3 Neut # (Auto) 40151 H Lymph # (Auto) 1800 [place] # (Auto) 1600 H Eos # (Auto) 0 Baso # (Auto) 0 PT INR APTT D-Dimer ABG Sample Site ABG pH ABG pCO2 ABG pO2 ABG HCO3 ABG Total CO2 ABG O2 Saturation ABG Base Excess Bernard Test Respiration Rate O2 Delivery Device FiO2 % PEEP or CPAP Sodium Potassium Chloride Carbon Dioxide BUN Creatinine Estimated GFR BUN/Creatinine Ratio Glucose Lactate 4.1 H* Calcium Total Bilirubin AST ALT Alkaline Phosphatase Total Creatine Kinase Troponin I NT-Pro-B Natriuret Pep Total Protein Albumin Globulin Albumin/Globulin Ratio Procalcitonin Urine Color Urine Appearance Urine pH Ur Specific [place] Urine Protein Urine Glucose (UA) Urine Ketones Urine Occult Blood Urine Nitrate Urine Bilirubin Urine Urobilinogen Ur Leukocyte Esterase Urine RBC Urine WBC Ur Squamous Epith Cells Amorphous Sediment Urine Bacteria Urine Mucus Ur Culture Indicated? Vol Urine Centrifuged Fluid Color Bloody Fluid Appearance Turbid Fluid RBC [id number] Fld Tot Nucleated Cell 905 Fluid Neutrophils % 41 Fluid Lymphocytes % 17 Fluid Eosinophils % 1 Fluid [place]/Macro/[place] % 20 Fluid Abnormal Cells 21 Body Fluid Clot No clots present Fluid Comment Abnormal cells seen: A Chlamy pneumoniae PCR Not detected Adenovirus (PCR) Not detected B. pertussis DNA (PCR) Not detected B.parapertussis DNA PCR Not detected Coronavirus OC43 (PCR) Not detected Coronavirus HKU1 (PCR) Not detected Coronavirus 229E (PCR) Not detected SARS-CoV-2 (PCR) Not detected Coronavirus NL63 (PCR) Not detected Human Metapneumovir PCR Not detected Influenza Type A (PCR) Not detected Influenza Type B (PCR) Not detected M. pneumoniae (PCR) Not detected Parainfluenza 1 (PCR) Not detected Parainfluenza 2 (PCR) Not detected Parainfluenza 3 (PCR) Not detected Parainfluenza 4 (PCR) Not detected RSV (PCR) Not detected Entero/Rhino (PCR) Not detected Blood Type Antibody Screen 06/03/24 06/03/24 06/03/24 15:53 16:41 18:11 WBC RBC Hgb Hct MCV MCH MCHC RDW Plt Count Neut % (Auto) Lymph % (Auto) [place] % (Auto) Eos % (Auto) Baso % (Auto) Neut # (Auto) Lymph # (Auto) [place] # (Auto) Eos # (Auto) Baso # (Auto) PT INR APTT D-Dimer ABG Sample Site Left radial ABG pH 7.40 ABG pCO2 33.9 L ABG pO2 156 H ABG HCO3 21 L ABG Total CO2 20 L ABG O2 Saturation 99 ABG Base Excess -3.6 L Bernard Test Positive Respiration Rate 20 O2 Delivery Device Et tube FiO2 % 40 % PEEP or CPAP 5 Sodium Potassium Chloride Carbon Dioxide BUN Creatinine Estimated GFR BUN/Creatinine Ratio Glucose Lactate 3.0 H Calcium Total Bilirubin AST ALT Alkaline Phosphatase Total Creatine Kinase Troponin I NT-Pro-B Natriuret Pep Total Protein Albumin Globulin Albumin/Globulin Ratio Procalcitonin Urine Color Urine Appearance Urine pH Ur Specific [place] Urine Protein Urine Glucose (UA) Urine Ketones Urine Occult Blood Urine Nitrate Urine Bilirubin Urine Urobilinogen Ur Leukocyte Esterase Urine RBC Urine WBC Ur Squamous Epith Cells Amorphous Sediment Urine Bacteria Urine Mucus Ur Culture Indicated? Vol Urine Centrifuged Fluid Color Fluid Appearance Fluid RBC Fld Tot Nucleated Cell Fluid Neutrophils % Fluid Lymphocytes % Fluid Eosinophils % Fluid [place]/Macro/[place] % Fluid Abnormal Cells Body Fluid Clot Fluid Comment Chlamy pneumoniae PCR Adenovirus (PCR) B. pertussis DNA (PCR) B.parapertussis DNA PCR Coronavirus OC43 (PCR) Coronavirus HKU1 (PCR) Coronavirus 229E (PCR) SARS-CoV-2 (PCR) Coronavirus NL63 (PCR) Human Metapneumovir PCR Influenza Type A (PCR) Influenza Type B (PCR) M. pneumoniae (PCR) Parainfluenza 1 (PCR) Parainfluenza 2 (PCR) Parainfluenza 3 (PCR) Parainfluenza 4 (PCR) RSV (PCR) Entero/Rhino (PCR) Blood Type A Positive Antibody Screen Negative Assessment & Plan Assessment and plan (1) Acute pericardial effusion: Problem details: Malignant Large Pericardial effusion that has apparently developed over last few days, causing acute hemodynamic compromise in the setting of advanced Lung masses metastasized to major vessels, Pericardium, Lymph nodes, bones and Liver. Breast nodule also noted. Emergent Pericardiocentesis performed in ED, with removal of bloody pericardial fluid, most certainly a pericardial malignant effusion. Cardiology consulted per ED Status: Acute (2) Obstructive cardiovascular shock: Problem details: Sec to Large Malignant Pericardial Effusion, in setting of extensive metastatic Lung malignancy and extending to major thoracic vessels, causing hempodynamic compromise. Status: Acute (3) MOSF (multiple organ systems failure): Problem details: Deterioration of Renal Function Hyperkalemia K at 6.3 , Pro BNP at 1700/ Elevated Liver enzymes, and HyperBilirubinemia , Elevated CK Status: Acute (4) Pulmonary embolism: Problem details: Was started on Heparin drip initially, but after further info obtained and patient made Comfort care, Heparin drip discontinued. Qualifiers: Pulmonary embolism type: other Chronicity: acute Acute cor pulmonale presence: with acute cor pulmonale Qualified Code(s): I26.09 - Other pulmonary embolism with acute cor pulmonale Status: Acute (5) Liver mass: Problem details: Enlarging metastatic Hepatic mass Status: Acute (6) Need for comfort care: Problem details: As per HPI, Family requested Comfort care measures to be provided for this patient. Morphine drip, Fentanyl inj , Ativan, Scopolamine , and other comfort measures provided. Patient was pronounced at 0511 am Status: Acute Time-Based Coding :: [TOTAL MINUTES] spent with patient and on the chart (including review of chart, obtaining history, exam, reviewing outside data, placing orders, documenting exam and treatment plan, and counseling patient) on [DATE].
--- NOTE | 2024-06-04 06:47 | P.DN_ITS ---
Discharge Summary History of Illness Narrative: 39 y/o F , current cig smoker, and h/o former substance abuse, with recent diagnosis of advanced Metastatic cancer, Primary unclear, as history is limited, pt obtunded, and her daughter Amada, and sister Amada at bedside, does not seem to know much about pt's course of the cancer, pt was brought to ED by EMS, with most of her body mottled, sec to decreased perfusion, pt lethargic per presentation to ED, and answering in minimal responses, had requested all to be done for her, so was intubated, a central line placed per ED, and a Heparin drip started as CTA Chest showed PE in L Lower lobe. Also noted was a Large Pericardial effusion, and R hilar mass / Lymphadenopathy with significant mass effect on adjacent R pulm A. seen were also 2 mass like consolidations in R lung, and focal pneumonitis of lingular area, as well as bony mets L5-S1, and R post 9th rib. Again seen Hepatic lesion, increased in size, ( see details on CTA chest/ abd / Pelvis) Cardiologfy was consulted, a STAT echo obtained and emergent Cardiocentesis done, with removal of Bloody Pericardial effusion with some transient improvement in hemodynamics. 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 ED Provider discussed in detail with POA/ Family members ( see ED note) and pt was made Comfort care per wishes of the family. Pt was extubated, started on Morphine drip, also ordered Fentanyl Injections, and Ativan prn. Scoploamine patch ordered for secretion control. Pt was referred to Hospitalist team for admission. I spoke to patient's daughter and sister, during remote session, and they could not provide any additional history about the patient's cancer diagnosis and progression, They said pt was seen by oncologist at [facility] , a couple of weeks ago, and during last 4-5 days, she had worsened, becoming Short of breath, lethargic, and obtunded. Patient at 0511 on June 04 2024 Hospital Course Date of Admission: 06/03/24 18:31 Date of : 06/04/24 (at 0511 am ) Primary care provider: Elli Betancourt MD Consults: Cardiology [facility] Discharge provider: Melissa Gong MD Discharge Diagnosis: Patient was made Comfort care and at 0511 am on 06/04/2024 Hospital Course: See HPI Objective ECG Impression: See HPI Labs 06/03/24 15:45 06/03/24 14:15 Labs: Laboratory Results - last 24 hr 06/03/24 06/03/24 06/03/24 14:15 14:15 14:15 WBC RBC Hgb Hct MCV MCH MCHC RDW Plt Count Neut % (Auto) Lymph % (Auto) [place] % (Auto) Eos % (Auto) Baso % (Auto) Neut # (Auto) Lymph # (Auto) [place] # (Auto) Eos # (Auto) Baso # (Auto) PT 20.0 H INR 1.8 H APTT 25 L D-Dimer 6916 H ABG Sample Site ABG pH ABG pCO2 ABG pO2 ABG HCO3 ABG Total CO2 ABG O2 Saturation ABG Base Excess Bernard Test Respiration Rate O2 Delivery Device FiO2 % PEEP or CPAP Sodium 127 L 127 L Potassium 6.0 H 6.3 H* Chloride 93 L Carbon Dioxide BUN Creatinine Estimated GFR BUN/Creatinine Ratio Glucose Lactate Calcium Total Bilirubin AST ALT Alkaline Phosphatase Total Creatine Kinase Troponin I NT-Pro-B Natriuret Pep Total Protein Albumin Globulin Albumin/Globulin Ratio Procalcitonin Urine Color Urine Appearance Urine pH Ur Specific [place] Urine Protein Urine Glucose (UA) Urine Ketones Urine Occult Blood Urine Nitrate Urine Bilirubin Urine Urobilinogen Ur Leukocyte Esterase Urine RBC Urine WBC Ur Squamous Epith Cells Amorphous Sediment Urine Bacteria Urine Mucus Ur Culture Indicated? Vol Urine Centrifuged Fluid Color Fluid Appearance Fluid RBC Fld Tot Nucleated Cell Fluid Neutrophils % Fluid Lymphocytes % Fluid Eosinophils % Fluid [place]/Mac[place] % Fluid Abnormal Cells Body Fluid Clot Fluid Comment Chlamy pneumoniae PCR Adenovirus (PCR) B. pertussis DNA (PCR) B.parapertussis DNA PCR Coronavirus OC43 (PCR) Coronavirus HKU1 (PCR) Coronavirus 229E (PCR) SARS-CoV-2 (PCR) Coronavirus NL63 (PCR) Human Metapneumovir PCR Influenza Type A (PCR) Influenza Type B (PCR) M. pneumoniae (PCR) Parainfluenza 1 (PCR) Parainfluenza 2 (PCR) Parainfluenza 3 (PCR) Parainfluenza 4 (PCR) RSV (PCR) Entero/Rhino (PCR) Blood Type Antibody Screen 06/03/24 06/03/24 06/03/24 14:15 14:15 14:15 WBC RBC Hgb Hct MCV MCH MCHC RDW Plt Count Neut % (Auto) Lymph % (Auto) [place] % (Auto) Eos % (Auto) Baso % (Auto) Neut # (Auto) Lymph # (Auto) [place] # (Auto) Eos # (Auto) Baso # (Auto) PT INR APTT D-Dimer ABG Sample Site ABG pH ABG pCO2 ABG pO2 ABG HCO3 ABG Total CO2 ABG O2 Saturation ABG Base Excess Bernard Test Respiration Rate O2 Delivery Device FiO2 % PEEP or CPAP Sodium Potassium Chloride 88 L Carbon Dioxide 23 25 BUN 64 H 70 H Creatinine 0.95 Estimated GFR BUN/Creatinine Ratio Glucose Lactate Calcium Total Bilirubin AST ALT Alkaline Phosphatase Total Creatine Kinase Troponin I NT-Pro-B Natriuret Pep Total Protein Albumin Globulin Albumin/Globulin Ratio Procalcitonin Urine Color Urine Appearance Urine pH Ur Specific [place] Urine Protein Urine Glucose (UA) Urine Ketones Urine Occult Blood Urine Nitrate Urine Bilirubin Urine Urobilinogen Ur Leukocyte Esterase Urine RBC Urine WBC Ur Squamous Epith Cells Amorphous Sediment Urine Bacteria Urine Mucus Ur Culture Indicated? Vol Urine Centrifuged Fluid Color Fluid Appearance Fluid RBC Fld Tot Nucleated Cell Fluid Neutrophils % Fluid Lymphocytes % Fluid Eosinophils % Fluid [place] % Fluid Abnormal Cells Body Fluid Clot Fluid Comment Chlamy pneumoniae PCR Adenovirus (PCR) B. pertussis DNA (PCR) B.parapertussis DNA PCR Coronavirus OC43 (PCR) Coronavirus HKU1 (PCR) Coronavirus 229E (PCR) SARS-CoV-2 (PCR) Coronavirus NL63 (PCR) Human Metapneumovir PCR Influenza Type A (PCR) Influenza Type B (PCR) M. pneumoniae (PCR) Parainfluenza 1 (PCR) Parainfluenza 2 (PCR) Parainfluenza 3 (PCR) Parainfluenza 4 (PCR) RSV (PCR) Entero/Rhino (PCR) Blood Type Antibody Screen 06/03/24 06/03/24 06/03/24 14:15 14:15 14:15 WBC RBC Hgb Hct MCV MCH MCHC RDW Plt Count Neut % (Auto) Lymph % (Auto) [place] % (Auto) Eos % (Auto) Baso % (Auto) Neut # (Auto) Lymph # (Auto) [place] # (Auto) Eos # (Auto) Baso # (Auto) PT INR APTT D-Dimer ABG Sample Site ABG pH ABG pCO2 ABG pO2 ABG HCO3 ABG Total CO2 ABG O2 Saturation ABG Base Excess Bernard Test Respiration Rate O2 Delivery Device FiO2 % PEEP or CPAP Sodium Potassium Chloride Carbon Dioxide BUN Creatinine 1.25 H Estimated GFR > 60 56 L BUN/Creatinine Ratio 67.4 H 56.0 H Glucose 104 H Lactate Calcium Total Bilirubin AST ALT Alkaline Phosphatase Total Creatine Kinase Troponin I NT-Pro-B Natriuret Pep Total Protein Albumin Globulin Albumin/Globulin Ratio Procalcitonin Urine Color Urine Appearance Urine pH Ur Specific [place] Urine Protein Urine Glucose (UA) Urine Ketones Urine Occult Blood Urine Nitrate Urine Bilirubin Urine Urobilinogen Ur Leukocyte Esterase Urine RBC Urine WBC Ur Squamous Epith Cells Amorphous Sediment Urine Bacteria Urine Mucus Ur Culture Indicated? Vol Urine Centrifuged Fluid Color Fluid Appearance Fluid RBC Fld Tot Nucleated Cell Fluid Neutrophils % Fluid Lymphocytes % Fluid Eosinophils % Fluid [place]/Mac[place] % Fluid Abnormal Cells Body Fluid Clot Fluid Comment Chlamy pneumoniae PCR Adenovirus (PCR) B. pertussis DNA (PCR) B.parapertussis DNA PCR Coronavirus OC43 (PCR) Coronavirus HKU1 (PCR) Coronavirus 229E (PCR) SARS-CoV-2 (PCR) Coronavirus NL63 (PCR) Human Metapneumovir PCR Influenza Type A (PCR) Influenza Type B (PCR) M. pneumoniae (PCR) Parainfluenza 1 (PCR) Parainfluenza 2 (PCR) Parainfluenza 3 (PCR) Parainfluenza 4 (PCR) RSV (PCR) Entero/Rhino (PCR) Blood Type Antibody Screen 06/03/24 06/03/24 06/03/24 14:15 14:15 14:29 WBC RBC Hgb Hct MCV MCH MCHC RDW Plt Count Neut % (Auto) Lymph % (Auto) [place] % (Auto) Eos % (Auto) Baso % (Auto) Neut # (Auto) Lymph # (Auto) [place] # (Auto) Eos # (Auto) Baso # (Auto) PT INR APTT D-Dimer ABG Sample Site ABG pH ABG pCO2 ABG pO2 ABG HCO3 ABG Total CO2 ABG O2 Saturation ABG Base Excess Bernard Test Respiration Rate O2 Delivery Device FiO2 % PEEP or CPAP Sodium Potassium Chloride Carbon Dioxide BUN Creatinine Estimated GFR BUN/Creatinine Ratio Glucose 111 H Lactate Calcium 8.6 9.7 Total Bilirubin 1.8 H AST 326 H ALT 337 H Alkaline Phosphatase 172 H Total Creatine Kinase 2040 H Troponin I < 0.012 NT-Pro-B Natriuret Pep 1700 H Total Protein 5.7 L Albumin 2.8 L Globulin 2.9 Albumin/Globulin Ratio 1.0 Procalcitonin 2.12 H Urine Color [place] Urine Appearance Clear Urine pH 5.5 Ur Specific [place] 1.025 Urine Protein Trace H Urine Glucose (UA) Negative Urine Ketones Negative Urine Occult Blood Trace-intact Urine Nitrate Negative Urine Bilirubin Negative Urine Urobilinogen 1.0 Ur Leukocyte Esterase Negative Urine RBC 0-1/hpf D Urine WBC 0-1/hpf Ur Squamous Epith Cells None seen Amorphous Sediment 1+ Urine Bacteria Few (2-10) H Urine Mucus 2+ H Ur Culture Indicated? Cult not indicated Vol Urine Centrifuged 10ml (spun) Fluid Color Fluid Appearance Fluid RBC Fld Tot Nucleated Cell Fluid Neutrophils % Fluid Lymphocytes % Fluid Eosinophils % Fluid [place]/Macro/[place] % Fluid Abnormal Cells Body Fluid Clot Fluid Comment Chlamy pneumoniae PCR Adenovirus (PCR) B. pertussis DNA (PCR) B.parapertussis DNA PCR Coronavirus OC43 (PCR) Coronavirus HKU1 (PCR) Coronavirus 229E (PCR) SARS-CoV-2 (PCR) Coronavirus NL63 (PCR) Human Metapneumovir PCR Influenza Type A (PCR) Influenza Type B (PCR) M. pneumoniae (PCR) Parainfluenza 1 (PCR) Parainfluenza 2 (PCR) Parainfluenza 3 (PCR) Parainfluenza 4 (PCR) RSV (PCR) Entero/Rhino (PCR) Blood Type Antibody Screen 06/03/24 06/03/24 06/03/24 14:32 15:30 15:45 WBC 14.9 H RBC 4.51 Hgb 10.0 L 8.9 L Hct 32.9 L 28.8 L MCV 72.9 L MCH 22.2 L MCHC 30.4 RDW 17.2 H Plt Count 147 L Neut % (Auto) 76.5 H Lymph % (Auto) 12.1 L [place] % (Auto) 11.0 Eos % (Auto) 0.1 L Baso % (Auto) 0.3 Neut # (Auto) 82756 H Lymph # (Auto) 1800 [place] # (Auto) 1600 H Eos # (Auto) 0 Baso # (Auto) 0 PT INR APTT D-Dimer ABG Sample Site ABG pH ABG pCO2 ABG pO2 ABG HCO3 ABG Total CO2 ABG O2 Saturation ABG Base Excess Bernard Test Respiration Rate O2 Delivery Device FiO2 % PEEP or CPAP Sodium Potassium Chloride Carbon Dioxide BUN Creatinine Estimated GFR BUN/Creatinine Ratio Glucose Lactate 4.1 H* Calcium Total Bilirubin AST ALT Alkaline Phosphatase Total Creatine Kinase Troponin I NT-Pro-B Natriuret Pep Total Protein Albumin Globulin Albumin/Globulin Ratio Procalcitonin Urine Color Urine Appearance Urine pH Ur Specific [place] Urine Protein Urine Glucose (UA) Urine Ketones Urine Occult Blood Urine Nitrate Urine Bilirubin Urine Urobilinogen Ur Leukocyte Esterase Urine RBC Urine WBC Ur Squamous Epith Cells Amorphous Sediment Urine Bacteria Urine Mucus Ur Culture Indicated? Vol Urine Centrifuged Fluid Color Bloody Fluid Appearance Turbid Fluid RBC [id number] Fld Tot Nucleated Cell 905 Fluid Neutrophils % 41 Fluid Lymphocytes % 17 Fluid Eosinophils % 1 Fluid [place]/Mac[place] % 20 Fluid Abnormal Cells 21 Body Fluid Clot No clots present Fluid Comment Abnormal cells seen: A Chlamy pneumoniae PCR Not detected Adenovirus (PCR) Not detected B. pertussis DNA (PCR) Not detected B.parapertussis DNA PCR Not detected Coronavirus OC43 (PCR) Not detected Coronavirus HKU1 (PCR) Not detected Coronavirus 229E (PCR) Not detected SARS-CoV-2 (PCR) Not detected Coronavirus NL63 (PCR) Not detected Human Metapneumovir PCR Not detected Influenza Type A (PCR) Not detected Influenza Type B (PCR) Not detected M. pneumoniae (PCR) Not detected Parainfluenza 1 (PCR) Not detected Parainfluenza 2 (PCR) Not detected Parainfluenza 3 (PCR) Not detected Parainfluenza 4 (PCR) Not detected RSV (PCR) Not detected Entero/Rhino (PCR) Not detected Blood Type Antibody Screen 06/03/24 06/03/24 06/03/24 15:53 16:41 18:11 WBC RBC Hgb Hct MCV MCH MCHC RDW Plt Count Neut % (Auto) Lymph % (Auto) [place] % (Auto) Eos % (Auto) Baso % (Auto) Neut # (Auto) Lymph # (Auto) [place] # (Auto) Eos # (Auto) Baso # (Auto) PT INR APTT D-Dimer ABG Sample Site Left radial ABG pH 7.40 ABG pCO2 33.9 L ABG pO2 156 H ABG HCO3 21 L ABG Total CO2 20 L ABG O2 Saturation 99 ABG Base Excess -3.6 L Bernard Test Positive Respiration Rate 20 O2 Delivery Device Et tube FiO2 % 40 % PEEP or CPAP 5 Sodium Potassium Chloride Carbon Dioxide BUN Creatinine Estimated GFR BUN/Creatinine Ratio Glucose Lactate 3.0 H Calcium Total Bilirubin AST ALT Alkaline Phosphatase Total Creatine Kinase Troponin I NT-Pro-B Natriuret Pep Total Protein Albumin Globulin Albumin/Globulin Ratio Procalcitonin Urine Color Urine Appearance Urine pH Ur Specific [place] Urine Protein Urine Glucose (UA) Urine Ketones Urine Occult Blood Urine Nitrate Urine Bilirubin Urine Urobilinogen Ur Leukocyte Esterase Urine RBC Urine WBC Ur Squamous Epith Cells Amorphous Sediment Urine Bacteria Urine Mucus Ur Culture Indicated? Vol Urine Centrifuged Fluid Color Fluid Appearance Fluid RBC Fld Tot Nucleated Cell Fluid Neutrophils % Fluid Lymphocytes % Fluid Eosinophils % Fluid [place]/Mac[place] % Fluid Abnormal Cells Body Fluid Clot Fluid Comment Chlamy pneumoniae PCR Adenovirus (PCR) B. pertussis DNA (PCR) B.parapertussis DNA PCR Coronavirus OC43 (PCR) Coronavirus HKU1 (PCR) Coronavirus 229E (PCR) SARS-CoV-2 (PCR) Coronavirus NL63 (PCR) Human Metapneumovir PCR Influenza Type A (PCR) Influenza Type B (PCR) M. pneumoniae (PCR) Parainfluenza 1 (PCR) Parainfluenza 2 (PCR) Parainfluenza 3 (PCR) Parainfluenza 4 (PCR) RSV (PCR) Entero/Rhino (PCR) Blood Type A Positive Antibody Screen Negative
--- NOTE | 2024-06-04 08:26 | PC.NURSE ---
0825 Pt remains collected by [facility], family member at bedside, left before pt loaded on to [facility]. Pt chain with cross in pt hand, [facility] took with pt remains, no further pt contact RIP
== END 2024-06-04 05:11 | disposition expired | DRG 136 ==
LOC: ED 16:39 → AC 18:31
PROVIDERS: Admitting Provider Internal Medicine; Emergency Provider Emergency Medicine; PCP Internal Medicine; Referring Provider Emergency Medicine; Visit Provider Internal Medicine
DX: C34.31 Malignant neoplasm of lower lobe, right bronchus or lung (principal); R57.0 Cardiogenic shock; I26.09 Other pulmonary embolism with acute cor pulmonale; I31.31 Malignant pericardial effusion in diseases classified elsewhere; C79.51 Secondary malignant neoplasm of bone; F17.200 Nicotine dependence, unspecified, uncomplicated; C77.9 Secondary and unspecified malignant neoplasm of lymph node, unspecified; C78.7 Secondary malignant neoplasm of liver and intrahepatic bile duct; C79.89 Secondary malignant neoplasm of other specified sites; E87.5 Hyperkalemia; R74.01 Elevation of levels of liver transaminase levels; E80.6 Other disorders of bilirubin metabolism; Z51.5 Encounter for palliative care
CPT/HCPCS: 31500; 33016; 36415; 36556; 36600; 71045; 71275; 74174; 80048; 80053; 81001; 82550; 82805; 83605; 83880; 84145; 84484; 85014; 85018; 85025; 85379; 85610; 85730; 86850; 86900; 86901; 87040; 87633; 89051; 93005; 93306; 93307; 94002; 94799; 96361; 96365; 96366; 96367; 96368; 96375; 99285; 99291; 99292; J0612; J1644; J1940; J2060; J2250; J2270; J2543; J2704; J3010; Q9967